=== PATIENT | male | born 1945 | race Caucasian/White ===

== ENCOUNTER → 2018-03-27 07:46 | Outpatient (CLI) | payer MEDICARE, OTHER, SELFPAY ==
[2018-03-27 09:56] LABS: Alanine Aminotransferase 42 IU/L (21-72); Albumin 4.2 g/dL (3.5-5.0); Albumin Globulin Ratio 1.4 (1.0-2.8); Alkaline Phosphatase 44 U/L (38-126); Aspartate Aminotransferase 30 IU/L (17-59); BUN Creatinine Ratio 17.1 (6-22); Bilirubin Total 0.5 mg/dL (0.2-1.3); Blood Urea Nitrogen 12 mg/dL (9-20); Carbon Dioxide 26 mmol/L (22-32); Chloride 99 mmol/L (98-107); Cholesterol 99 mg/dL (140-199); Estimated Glomerular Filt Rate > 60.0 mL/min (>60); Globulin 3.1 g/dL (1.7-4.1); Glucose 99 mg/dL (80-110); HDL Cholesterol 32 mg/dL (40-60); HEMOLYSIS < 15 (0-50); LDL Cholesterol Calculated 53 mg/dL (<100); Potassium 4.1 mmol/L (3.4-5.1); Sodium 137 mmol/L (137-145); Total Protein 7.3 g/dL (6.3-8.2); Triglycerides 72 mg/dL (35-150)
== END ==
PROVIDERS: PCP Internal Medicine; Visit Provider Physician Assistant Medical
DX: E78.2 Mixed hyperlipidemia (principal); I10 Essential (primary) hypertension
CPT/HCPCS: 36415; 80053; 80061

== ENCOUNTER → 2018-04-03 15:59 | Outpatient (CLI) | payer MEDICARE, OTHER, SELFPAY ==
--- NOTE | 2018-04-03 | DI.RAD.S_ITS ---
PROCEDURE: XR CERVICAL SPINE 4V OR 5V INDICATIONS: 72-year-old male with cervicalgia. TECHNIQUE: 5 views of the cervical spine were acquired. COMPARISON: None. FINDINGS: Bones: No fractures or dislocations to the T1 level. Multilevel mid and lower cervical spine disc degeneration is again noted, with mild loss of normal cervical spine lordosis. No suspicious bony lesions. There is decreased range of motion between flexion and extension, with preserved bony alignment. Soft tissues: Prevertebral soft tissues are normal in thickness. There is bilateral carotid bifurcation atherosclerosis. IMPRESSION: 1. No significant interval change in multilevel mid and lower cervical spine disc degeneration since 2013. 2. Decreased range of motion between flexion and extension. Dictated by: Dawson Mccracken M.D. on 04/03/2018 at 16:34 Approved by: Dawson Mccracken M.D. on 04/03/2018 at 16:36
== END ==
PROVIDERS: Family Provider Internal Medicine; PCP Internal Medicine; Visit Provider Internal Medicine
DX: M50.30 Other cervical disc degeneration, unspecified cervical region (principal)
CPT/HCPCS: 72050

== ENCOUNTER → 2018-09-04 15:33 | Outpatient (CLI) | payer MEDICARE, OTHER, SELFPAY ==
--- NOTE | 2018-09-04 | DI.RAD.S_ITS ---
PROCEDURE: XR WRIST LT MIN 3V INDICATIONS: PAIN IN LEFT WRIST TECHNIQUE: 5 views of the wrist were acquired. COMPARISON: None. FINDINGS: Bones: No fractures or dislocations. No suspicious bony lesions. First CMC and triscaphe mild degeneration. There is also severe second MTP joint degeneration. Marginal lucencies present at the third MCP joint, DIP joint of the little finger . Chondrocalcinosis projects in the ulnocarpal compartment. First MCP joint degeneration also present with marginal lucencies Soft tissues: No suspicious soft tissue calcifications. IMPRESSION: Diffuse left hand joint degeneration, most pronounced at the second MCP joint. Scattered, small marginal lucencies as above in particular at the first and third MCP joint raise the possibility of small age indeterminate erosions, although please correlate clinically. Left wrist chondrocalcinosis. Dictated by: Michael Aguila M.D. on 09/04/2018 at 16:54 Approved by: Michael Aguila M.D. on 09/04/2018 at 16:58
== END ==
PROVIDERS: Family Provider Internal Medicine; PCP Internal Medicine; Visit Provider Physician Assistant
DX: M25.532 Pain in left wrist (principal); M19.042 Primary osteoarthritis, left hand; M11.232 Other chondrocalcinosis, left wrist
CPT/HCPCS: 73110

== ENCOUNTER → 2018-09-06 16:05 | Outpatient (CLI) | payer MEDICARE, OTHER, SELFPAY ==
[2018-09-06 16:52] LABS: Erythrocyte Sedimentation Rate 28 MM/HR (0-15)
[2018-09-06 17:00] LABS: C-Reactive Protein Quant 1.6 mg/dL (<1.0); Rheumatoid Factor < 8.6 IU/mL (<12.0)
== END ==
PROVIDERS: PCP Internal Medicine; Visit Provider Internal Medicine
DX: M06.9 Rheumatoid arthritis, unspecified (principal); M13.0 Polyarthritis, unspecified; M25.532 Pain in left wrist
CPT/HCPCS: 36415; 85651; 86140; 86430

== ENCOUNTER 2019-04-03 08:09 | Day surgery (SDC) | payer MEDICARE, OTHER, SELFPAY ==
--- NOTE | 2019-03-13 08:14 | PM.HP.1 ---
History of Present Illness Date Patient Seen: 03/13/19 Chief complaint: [id number] Narrative: 73-year-old male with a history of colon polyps on colonoscopy performed 03/12/2014 at [facility] who is here for surveillance. He currently has no active medical issues such as chest pain or shortness of breath Patient History Family & Social History Social History: household members spouse lives independently Yes Tobacco & Substance use: alcohol intake former Meds Home Medications Medication Instructions Recorded Confirmed Type ASPIRIN (#ASPIRIN) 81 mg PO Q DAY #0 04/26/11 02/15/19 History Terazosin HCl (HYTRIN) 2 mg PO HS #0 04/26/11 02/15/19 History VITAMIN D (Vitamin D3) 1,000 unit PO QDAY #0 04/26/11 02/15/19 History metoprolol tartrate 50 mg PO BID #0 04/26/11 02/15/19 History benzonatate [Tessalon Perles] 100 mg PO TID #21 cap 10/27/16 02/15/19 Rx omeprazole magnesium 10 mg oral 10 mg PO DAILY 02/15/19 02/15/19 History suspension,delayed release rosuvastatin 20 mg tablet 20 mg PO DAILY 02/15/19 02/15/19 History tadalafil 5 mg tablet 5 mg PO DAILY PRN 02/15/19 02/15/19 History Resmed Aircurve BIPAP #1 ea 02/18/19 02/18/19 History Allergies Allergy/AdvReac Type Severity Reaction Status Date / Time lisinopril [LISINOPRIL] Allergy Unknown Unverified 01/17/18 12:16 Review of Systems Review of Systems All systems reviewed & are unremarkable except as noted in HPI and below Exam Narrative Exam Narrative: General: Patient is overweight, not in apparent distress Cardiovascular: Regular rate and rhythm, no murmurs, rubs, or gallops; no evidence of edema; no palpable abdominal aortic aneurysm Gastrointestinal: Normoactive bowel sounds, soft, nontender, nondistended, no rebound tenderness, no hepatosplenomegaly, no evidence of hernia Assessment & Plan Assessment & Plan narrative: 73-year-old male who is here for colon polyp surveillance Regarding the procedure(s), the risks and potential complications, benefits, and alternatives (including not doing the procedure) were discussed with the patient. The risks include but are not limited to bleeding, splenic injury, infection, perforation which may require surgical intervention, missed lesions, and adverse reactions to sedative medicines. After a question and answer period, the patient agreed to proceed with the procedure(s) and gives informed consent.
[2019-04-03 08:30] VITALS: BP 120/69; PULSE 67; RESP 16; TEMP 36.6; O2SAT 95; BMI 29.6
[2019-04-03] MEDS: SODIUM CHLORIDE 0.9% 1,000 ML 70 ML IV (08:41)
[2019-04-03] MEDS: MIDAZOLAM 5 MG/5 ML VIAL IV (10:11)
[2019-04-03] MEDS: fentaNYL 250 MCG/5 ML INJ IV (10:12)
--- NOTE | 2019-04-03 10:21 | PM.PREOP ---
Pre-operative Note Interval Note History & Physical reviewed/Exam performed by Physician: Yes Changes to H&P: No ASA Class (for procedural sedation): II
--- NOTE | 2019-04-03 10:23 | PM.OP.ENDO ---
Operative Date/Time/Diagnoses Date of procedure: 04/03/19 Procedure & Clinicians Study performed: Colonoscopy Moderate conscious sedation was administered by the endoscopy nurse and supervised by the endoscopist. The following parameters were monitored: Oxygen saturation, heart rate, blood pressure, and response to care. Sedation: 2 mg midazolam, 100 mcg fentanyl Indications: Colon cancer screening. Personal history of colon polyps. Last colonoscopy 2013 Procedure Notes Procedure in detail: Prior to the procedure, history and physical was performed, and patient medications and allergies were reviewed. Preprocedure nursing history and assessment was reviewed. Patient identification and proposed procedure were verified by the physician and nurse in the procedure room. The physical status of the patient was reassessed after the procedure. After informed consent was obtained including risks, benefits, and alternatives, the scope was passed under direct vision. Throughout the procedure, the patient's blood pressure, pulse, and oxygen saturations were monitored continuously. The colonoscope was introduced through the anus and advanced to the cecum as identified by the appendiceal orifice and ileocecal valve. The patient tolerated the procedure well. Bowel prep was deemed adequate to detect polyps greater than 5 mm. Perianal and digital rectal examinations were unremarkable. Grade 1 internal hemorrhoids noted during retroflexion in the rectum. Multiple medium mouth diverticula noted in the sigmoid colon Impression: Sigmoid colon diverticulosis Internal hemorrhoids No specimens collected Sedation minutes: 20 Complications: other (EBL none. No complications) Plan for aftercare: Repeat colonoscopy in 5 years for colon cancer screening Resume home medication High fiber diet Discharge home with escort
[2019-04-03 10:25] VITALS: BP 118/60; PULSE 11; RESP 93; TEMP 36.9
[2019-04-03 10:28] VITALS: BP 120/69; PULSE 56; RESP 14; O2SAT 95
[2019-04-03 10:33] VITALS: BP 124/63; PULSE 56; RESP 18; O2SAT 94
[2019-04-03 10:44] VITALS: BP 130/73; PULSE 54; RESP 16; TEMP 36.7; O2SAT 95
== END 2019-04-03 11:00 | disposition home or self-care (01) ==
PROVIDERS: PCP Internal Medicine; Visit Provider Internal Medicine
PROC: 0DJD8ZZ Inspection of Lower Intestinal Tract, Via Natural or Artificial Opening Endoscopic (ICD-10-PCS; CPT 45378; principal; 2019-04-03 09:30)
DX: Z86.010 Personal history of colon polyps (principal); K57.30 Diverticulosis of large intestine without perforation or abscess without bleeding; K64.8 Other hemorrhoids
CPT/HCPCS: G0105; J2250; J3010

== ENCOUNTER → 2019-08-01 09:13 | Outpatient (CLI) | payer MEDICARE, OTHER, SELFPAY ==
[2019-08-01 11:10] LABS: Alanine Aminotransferase 28 IU/L (21-72); Albumin 4.5 g/dL (3.5-5.0); Albumin Globulin Ratio 1.7 (1.0-2.8); Alkaline Phosphatase 45 U/L (38-126); Aspartate Aminotransferase 25 IU/L (17-59); BUN Creatinine Ratio 17.1 (6-22); Bilirubin Total 0.9 mg/dL (0.2-1.3); Blood Urea Nitrogen 12 mg/dL (9-20); Calcium 9.2 mg/dL (8.4-10.2); Carbon Dioxide 26 mmol/L (22-32); Chloride 98 mmol/L (98-107); Estimated Glomerular Filt Rate > 60.0 mL/min (>60); Globulin 2.7 g/dL (1.7-4.1); Glucose 100 mg/dL (80-110); HEMOLYSIS < 15 (0-50); Potassium 4.1 mmol/L (3.4-5.1); Sodium 137 mmol/L (137-145); Total Protein 7.2 g/dL (6.3-8.2)
[2019-08-05 11:59] LABS: Lipoprofile NMR SEE SEPERATE REPORT
== END ==
PROVIDERS: Family Provider Internal Medicine; PCP Internal Medicine; Visit Provider Specialist
DX: E78.2 Mixed hyperlipidemia (principal); I10 Essential (primary) hypertension
CPT/HCPCS: 36415; 80053; 83704

== ENCOUNTER → 2019-08-05 13:16 | Outpatient (CLI) | payer MEDICARE, OTHER, SELFPAY ==
--- NOTE | 2019-08-05 | DI.ECHO.S_ITS ---
[facility] +---------+ : : [address] : [place] : : : : [id number] : : : : Phone: [phone]+ Echocardiogram Report + + :Name: KWASI ESCAMILLA Study Date: 08/05/2019 Height: 72 in : :[facility] Weight: 214 lb : : Gender: Male BSA: 2.2 m2 : :: 1945 Age: 74 yrs BP: 134/76 mmHg: :Reason For Study: Aortic, Ascending Aneurysm : :Ordering Physician: Mateo : :Gavin Performed By: Anabel Menendez : :Referring: Dr. John Niño : + + Interpretation Summary The left ventricle is normal in size, wall thickness, and systolic function without any focal wall motion abnormalities with the ejection fraction visually estimated to be 60-65%. Diastolic parameters suggest probable normal left ventricular diastolic function and normal filling pressures. There has been no significant change since the previous study. The right ventricle is mild to moderately dilated and systolic function is mildly reduced but appears unchanged compared to the previous study. The right ventricular systolic pressure is estimated to be at least 25 mmHg based on an estimated right atrial pressure of 3 mm Hg, and is unchanged compared to the previous study. The left atrium is mildly dilated but is smaller compared to the previous study. The right atrium is borderline dilated and grossly unchanged. The aortic valve is mildly calcified with mild aortic regurgitation that is unchanged compared to the previous study. There is no other significant valvular heart disease. The aortic root is moderately dilated and the ascending aorta is moderate- severely enlarged, measuring 4.2 cm and 5.0 cm, respectively, but both are unchanged compared to the previous study. The aortic arch is mild-moderately enlarged at 3.7 cm but measures slightly smaller compared to the previous study when it was 4.0 cm. Procedure: A two-dimensional transthoracic echocardiogram with color flow and Doppler was performed. The study quality was technically adequate. Comparison is made with the echocardiogram of 05-23-17. The patient was in normal sinus rhythm during the exam. Left Ventricle: The left ventricle is normal in size, wall thickness, and systolic function without any focal wall motion abnormalities. The ejection fraction is estimated to be 60-65%. Diastolic parameters suggest probable normal left ventricular diastolic function and normal filling pressures. There has been no significant change since the previous study. Right Ventricle: The right ventricle is mild to moderately dilated. Right ventricular systolic function is mildly reduced. This is unchanged compared to the previous study. Atria: The left atrium is mildly dilated. This is smaller compared to the previous study. The right atrium is borderline dilated. This is unchanged compared to the previous study. The interatrial septum is intact with no evidence for an atrial septal defect. Mitral Valve: The mitral valve leaflets appear mildly thickened, but open well. There is systolic anterior motion of the chordal apparatus. There is trace mitral regurgitation. This is unchanged compared to the previous study. Aortic Valve: The aortic valve is trileaflet. The aortic valve is mildly calcified. The aortic valve opens well. There is mild aortic regurgitation. This is unchanged compared to the previous study. Tricuspid Valve: The tricuspid valve is normal in structure and function. There is trace tricuspid regurgitation. The right ventricular systolic pressure is estimated to be at least 25 mmHg based on an estimated right atrial pressure of 3 mm Hg. This is unchanged compared to the previous study. Pulmonic Valve: The pulmonic valve is not well seen, but is grossly normal. There is no pulmonic valvular regurgitation. There is no other significant valvular heart disease. Great Vessels: The aortic root is moderately dilated. This is unchanged compared to the previous study. The ascending aorta is moderate-severely enlarged. This is unchanged compared to the previous study. The aortic arch is mild-moderately enlarged. The aortic arch measures slightly smaller compared to the previous study. The IVC is of normal diameter and collapses greater than 50% with a sniff. This suggests a low right atrial pressure of 3 mm Hg. Pericardium/ Pleura There is no pericardial effusion. There is no pleural effusion. MMode/2D Measurements & Calculations LVIDd: 5.2 cm Ao root diam: 4.2 cm LVIDs: 3.0 cm Aortic Jxn: 3.9 cm FS: 42.6 % asc Aorta Diam: 5.0 cm EPSS: 0.36 cm Ao Arch Diam (Prox Trans): 3.7 cm IVSd: 1.1 cm LVPWd: 0.82 cm LV monsivais. diameter/BSA (cm/m^2): 2.4 LV sys. diameter/BSA (cm/m^2): 1.4 LA dimension: 3.2 cm RA long axis: 5.4 cm LA A2 area: 26.6 cm2 RA area: 21.2 cm2 LA A4 area: 23.0 cm2 RA vol: 70.7 ml LA length (vol): 5.9 cm RA : 32.3 ml/m2 LA vol: 87.5 ml IVC diam: 1.9 cm LA vol index: 39.9 ml/m2 RVDd major: 8.1 cm RVD1 (basal): 5.5 cm RVD2 (mid): 5.3 cm Doppler Measurements & Calculations Ao V2 max: 149.4 cm/sec MV E max matthew: 66.2 cm/sec Ao V2 mean: 95.6 cm/sec MV A max matthew: 58.3 cm/sec Ao max P.9 mmHg MV E/A: 1.1 Ao mean P.2 mmHg Med Peak E' Matthew: 6.6 cm/sec Ao V2 VTI: 31.8 cm E/E' med: 10.0 Lat Peak E' Matthew: 8.2 cm/sec E/E' lat: 8.1 E/e' average: 9.0 MV dec time: 0.40 sec MV P1/2t: 116.8 msec TR max matthew: 236.3 cm/sec MV P1/2t max matthew: 65.8 cm/sec TR max P.3 mmHg MVA(P1/2t): 1.9 cm2 PA V2 max: 86.4 cm/sec PA V2 mean: 67.5 cm/sec PA mean P.9 mmHg PA Accel Time: 0.15 sec Reading Physician:MULUGETA
== END ==
PROVIDERS: PCP Internal Medicine; Visit Provider Specialist
DX: I71.2 Thoracic aortic aneurysm, without rupture (principal); I35.1 Nonrheumatic aortic (valve) insufficiency
CPT/HCPCS: 93306

== ENCOUNTER → 2019-09-11 10:32 | Outpatient (CLI) | payer MEDICARE, OTHER, SELFPAY ==
[2019-09-11 11:10] LABS: Alanine Aminotransferase 32 IU/L (<50); Albumin 4.6 g/dL (3.5-5.0); Albumin Globulin Ratio 1.7 (1.0-2.8); Alkaline Phosphatase 52 U/L (38-126); Aspartate Aminotransferase 28 IU/L (17-59); BUN Creatinine Ratio 24.3 (6-22); Bilirubin Total 0.9 mg/dL (0.2-1.3); Blood Urea Nitrogen 17 mg/dL (9-20); Calcium 9.5 mg/dL (8.4-10.2); Carbon Dioxide 26 mmol/L (22-32); Chloride 98 mmol/L (98-107); Estimated Glomerular Filt Rate > 60.0 mL/min (>60); Globulin 2.7 g/dL (1.7-4.1); Glucose 103 mg/dL (80-110); HEMOLYSIS < 15 (0-50); Lipase 67 U/L (23-300); Potassium 4.2 mmol/L (3.4-5.1); Sodium 133 mmol/L (137-145); Total Protein 7.3 g/dL (6.3-8.2)
[2019-09-11 11:21] LABS: Troponin I < 0.012 ng/mL (0.01-0.034)
== END ==
PROVIDERS: Family Provider Internal Medicine; PCP Internal Medicine; Visit Provider Physician Assistant
DX: R11.0 Nausea (principal)
CPT/HCPCS: 36415; 80053; 83690; 84484

== ENCOUNTER → 2020-07-20 08:38 | Outpatient (CLI) | payer MEDICARE, OTHER, SELFPAY ==
[2020-07-20 09:51] LABS: Alanine Aminotransferase 29 IU/L (<50); Albumin 4.1 g/dL (3.5-5.0); Albumin Globulin Ratio 1.6 (1.0-2.8); Alkaline Phosphatase 55 U/L (38-126); Aspartate Aminotransferase 32 IU/L (17-59); BUN Creatinine Ratio 17.5 (6-22); Bilirubin Total 0.8 mg/dL (0.2-1.3); Blood Urea Nitrogen 14 mg/dL (9-20); Carbon Dioxide 28 mmol/L (22-32); Chloride 99 mmol/L (98-107); Estimated Glomerular Filt Rate > 60.0 mL/min (>60); Globulin 2.5 g/dL (1.7-4.1); Glucose 116 mg/dL (80-110); HEMOLYSIS < 15 (0-50); Potassium 4.2 mmol/L (3.4-5.1); Sodium 134 mmol/L (137-145); Total Protein 6.6 g/dL (6.3-8.2)
[2020-08-07 14:32] LABS: LDL Particle 698; LDL-Cholsterol 50
[2020-08-07 14:33] LABS: HDL-Cholesterol 27; Triglycerides 144
[2020-08-07 14:34] LABS: Cholesterol, Total 102; HDL-Particle (Total) 23.9
[2020-08-07 14:35] LABS: Small LDL- Particle 539
[2020-08-07 14:37] LABS: LDL Size 19.6
== END ==
PROVIDERS: Family Provider Internal Medicine; PCP Internal Medicine; Referring Provider Specialist; Visit Provider Specialist
DX: E78.2 Mixed hyperlipidemia (principal)
CPT/HCPCS: 36415; 80053; 80061; 83704

== ENCOUNTER → 2020-07-24 15:26 | Outpatient (CLI) | payer MEDICARE, OTHER, SELFPAY ==
--- NOTE | 2020-07-24 | DI.CT.S_ITS ---
PROCEDURE: CT CHEST W CON INDICATIONS: Disorder of arteries and arterioles, unspecified TECHNIQUE: After the administration of intravenous contrast, 5 mm thick sections acquired from the pulmonary apices to the posterior costophrenic angles. 1 mm axial lung, 5 mm thick coronal and sagittal reformats and 7 mm axial MIP were acquired. For radiation dose reduction, the following was used: automated exposure control, adjustment of mA and/or kV according to patient size. COMPARISON: [facility], CT, THORAX WITH CONTRAST, 01/26/2016, 11:07. [facility], CR, XR CHEST 2 VIEWS, 09/24/2018, 11:20. FINDINGS: Image quality: Excellent. Lungs and pleura: No acute air space opacities. Minimal atelectasis in the lingula. Punctate calcified granuloma in the right middle lobe. No pleural effusions or pneumothorax. Central and peripheral airways are patent and normal in caliber. Mediastinum: Heart size is normal. Three-vessel coronary artery calcifications. No pericardial effusion. No mediastinal or hilar adenopathy by size criteria. Ascending aorta measures approximately 3.6 cm, previously 3.8 cm on 01/26/2016. Moderate calcified atherosclerotic plaque in the aortic arch. Esophagus is normal in caliber. Small hiatal hernia. Bones and chest wall: No suspicious bony lesions. No vertebral body compression fractures. No axillary or supraclavicular adenopathy by size criteria. Thyroid gland is unremarkable. Abdomen: Large simple cyst in the right kidney measuring 7.8 cm partially visualized. Well-circumscribed hypodensities in the liver are unchanged in consistent with benign cysts. Visualized upper abdominal solid organs appear normal. Upper abdominal bowel loops are normal in caliber. IMPRESSION: 1. Ascending aorta measures approximately 3.6 cm and is similar to 2016. Moderate calcified atherosclerotic plaque within the aorta. 2. Three-vessel coronary artery calcifications. 3. No significant acute airspace opacity or pulmonary nodules. 4. Small hiatal hernia. Dictated by: Bernardo Clark M.D. on 07/24/2020 at 16:19 Approved by: Bernardo Clark M.D. on 07/24/2020 at 16:32
== END ==
PROVIDERS: Family Provider Internal Medicine; PCP Internal Medicine; Referring Provider Specialist; Visit Provider Physician Assistant Medical
DX: I77.9 Disorder of arteries and arterioles, unspecified (principal); I70.0 Atherosclerosis of aorta; I25.10 Atherosclerotic heart disease of native coronary artery without angina pectoris; K44.9 Diaphragmatic hernia without obstruction or gangrene
CPT/HCPCS: 71260

== ENCOUNTER → 2021-03-17 07:55 | Outpatient (CLI) | payer MEDICARE, OTHER, SELFPAY ==
[2021-03-17 08:51] LABS: Alanine Aminotransferase 24 IU/L (<50); Albumin 4.1 g/dL (3.5-5.0); Albumin Globulin Ratio 1.6 (1.0-2.8); Alkaline Phosphatase 52 U/L (38-126); Aspartate Aminotransferase 26 IU/L (17-59); BUN Creatinine Ratio 14.1 (6-22); Bilirubin Total 0.7 mg/dL (0.2-1.3); Blood Urea Nitrogen 10 mg/dL (9-20); Calcium 9.3 mg/dL (8.4-10.2); Carbon Dioxide 25 mmol/L (22-32); Chloride 98 mmol/L (98-107); Estimated Glomerular Filt Rate > 60.0 mL/min (>60); Globulin 2.6 g/dL (1.7-4.1); Glucose 106 mg/dL (80-110); HEMOLYSIS < 15 (0-50); Potassium 4.1 mmol/L (3.4-5.1); Sodium 132 mmol/L (137-145); Total Protein 6.7 g/dL (6.3-8.2)
[2021-03-17 15:09] LABS: Add Manual Diff / Slide Review NO; Basophils Absolute Auto 0 /uL (0-100); Basophils Percent Auto 0.4 % (0-2); Eosinophils Absolute Auto 100 /uL (0-450); Eosinophils Percent Auto 1.5 % (2-4); Hematocrit 37.9 % (41-53); Hemoglobin 13.3 g/dL (13.5-17.5); Lymphocytes Absolute Auto 1400 /uL (1100-4500); Lymphocytes Percent Auto 20.2 % (25-40); Mean Corpuscular Hemoglobin 32.4 PG (26-34); Mean Corpuscular Volume 92.6 fL (80-100); Monocytes Absolute Auto 600 /uL (0-900); Monocytes Percent Auto 8.2 % (3-14); Neutrophils Absolute Auto 4900 /uL (1500-7000); Neutrophils Percent Auto 69.7 % (50-75); Platelet Count 195 X10^3/uL (150-400); Red Blood Cell Count 4.09 X10^6/uL (4.5-5.9); Red Cell Distribution Width 13.3 % (11.6-14.8)
[2021-03-17 15:31] LABS: Hemoglobin A1C% w Est Avg Glu 5.5 % (4.0-6.0)
[2021-03-17 15:56] LABS: Prostate Specific Antigen 14.9 ng/mL (0.10-4.00)
[2021-03-17 15:57] LABS: TSH w/ Reflex to FT4 2.36 uIU/mL (0.47-4.68)
[2021-03-19 08:11] LABS: Cholesterol, Total 104 mg/dL (100-199); HDL-Cholesterol 34 mg/dL (>39); HDL-Particle (Total) 25.8 umol/L (>=30.5); LDL Particle 739 nmol/L (<1000); LDL Size 19.9 nm (>20.5); LDL-Cholsterol 51 mg/dL (0-99); LP-IR Score 72 (<=45); Small LDL- Particle 490 nmol/L (<=527); Triglycerides 97 mg/dL (0-149)
== END ==
PROVIDERS: Family Provider Internal Medicine; PCP Internal Medicine; Referring Provider Physician Assistant Medical; Visit Provider Physician Assistant Medical
DX: E78.00 Pure hypercholesterolemia, unspecified (principal); I25.10 Atherosclerotic heart disease of native coronary artery without angina pectoris; E78.2 Mixed hyperlipidemia; R73.01 Impaired fasting glucose; N40.0 Benign prostatic hyperplasia without lower urinary tract symptoms
CPT/HCPCS: 36415; 80053; 80061; 83036; 83704; 84153; 84443; 85025

== ENCOUNTER → 2021-04-06 10:52 | Outpatient (CLI) | payer MEDICARE, OTHER, SELFPAY ==
[2021-04-07 07:28] LABS: PSA Free % 8.9 % (.); PSA, Total 13.3 ng/mL (0.0-4.0)
== END ==
PROVIDERS: Family Provider Internal Medicine; PCP Internal Medicine; Referring Provider Internal Medicine; Visit Provider Internal Medicine
DX: Z12.5 Encounter for screening for malignant neoplasm of prostate (principal); R97.20 Elevated prostate specific antigen [PSA]
CPT/HCPCS: 36415; 84153; 84154

== ENCOUNTER → 2021-08-03 10:11 | Outpatient (CLI) | payer MEDICARE, OTHER, SELFPAY ==
[2021-08-03 12:59] LABS: Alanine Aminotransferase 20 IU/L (<50); Albumin 4.3 g/dL (3.5-5.0); Albumin Globulin Ratio 1.9 (1.0-2.8); Alkaline Phosphatase 47 U/L (38-126); Aspartate Aminotransferase 22 IU/L (17-59); BUN Creatinine Ratio 16.7 (6-22); Bilirubin Total 0.6 mg/dL (0.2-1.3); Blood Urea Nitrogen 12 mg/dL (9-20); Calcium 9.1 mg/dL (8.4-10.2); Carbon Dioxide 25 mmol/L (22-32); Chloride 99 mmol/L (98-107); Estimated Glomerular Filt Rate > 60.0 mL/min (>60); Globulin 2.3 g/dL (1.7-4.1); Glucose 96 mg/dL (80-110); HEMOLYSIS < 15 (0-50); Potassium 4.1 mmol/L (3.4-5.1); Sodium 135 mmol/L (137-145); Total Protein 6.6 g/dL (6.3-8.2)
== END ==
PROVIDERS: Family Provider Internal Medicine; PCP Internal Medicine; Referring Provider Physician Assistant Medical; Visit Provider Specialist
DX: I10 Essential (primary) hypertension (principal)
CPT/HCPCS: 36415; 80053

== ENCOUNTER → 2021-08-06 13:41 | Outpatient (CLI) | payer MEDICARE, OTHER, SELFPAY ==
--- NOTE | 2021-08-06 13:43 | DI.ECHO.S_ITS ---
[facility] +---------+ : : [address] [place] : : : : [phone] : : : : Phone: [phone]+ Echocardiogram Report + + :Name: KWASI ESCAMILLA Study Date: 08/06/2021 Height: 72 in : :[facility] ReadingLocation: Weight: 220 lb : : Gender: Male BSA: 2.2 m2 : :: 1945 Age: 76 yrs BP: 140/80 mmHg: :Reason For Study: Thoracic aorta aneurysm, without rupture : : Performed By: JASBIR CULP : :Referring: JOHANA JARVIS : + + Interpretation Summary Left ventricular systolic function appears normal and unchanged from the previous study with an estimated ejection fraction of 55 to 60% without any focal wall motion abnormality. Left ventricular volumes are at the upper limits of normal at 126 mL. Wall thickness is at the upper limits of normal with mild septal prominence but similar to the previous study. Diastolic function is challenging to assess because of contradictory data although a reversed E/A ratio would suggest impaired relaxation, new from the previous study, and the E/E' ratios are significantly higher, suggesting possible increased filling pressure although left atrial size is markedly smaller. The right ventricle is mild to moderately enlarged with probable preserved right ventricular systolic function and grossly appears unchanged from the previous study. Right ventricular systolic pressure cannot be estimated but CVP is likely around 3 mmHg. The left atrium is normal in size while the right atrium is moderately enlarged. Left atrial size is significantly smaller while right atrial size is mildly larger compared to the previous study. There is aortic valve sclerosis without stenosis and mild aortic insufficiency that remains unchanged from the previous study. There is no other significant valvular abnormality. The aortic root measures normal at 3.5 cm, smaller compared to 4.2 cm on the previous study, although is less well imaged. The ascending aorta is moderate to severely enlarged at 4.9 cm, unchanged from the previous 5.0 cm. The aortic arch is also unchanged at 3.6 cm compared to 3.7 cm previously. Procedure: A two-dimensional transthoracic echocardiogram with color flow and Doppler was performed. The study quality was technically adequate. Comparison is made with the echocardiogram of 08/05/2019. The patient was in normal sinus rhythm during the exam. Left Ventricle: The left ventricle is normal in size. Left ventricular wall thickness is at the upper limits of normal. There is mild proximal septal thickening noted. Left ventricular systolic function appears normal without focal wall motion abnormalities. The ejection fraction is estimated to be 55- 60%. Diastolic function could not be accurately assessed due to contradictory data. Diastolic parameters suggest a relaxation abnormality of the left ventricle, consistent with probable normal filling pressures. Right Ventricle: The right ventricle is mild to moderately dilated. The right ventricular systolic function is normal. This is unchanged compared to the previous study. Atria: The left atrial size is normal. The left atrium has significantly decreased in size since the prior echo exam. The right atrium is moderately dilated. The right atrium has mildly increased in size since the prior echo exam. There is no Doppler evidence for an interatrial shunt. Mitral Valve: The mitral valve leaflets appear normal. There is no evidence of stenosis, fluttering, or prolapse. There is trace mitral regurgitation. Aortic Valve: The aortic valve is trileaflet. The aortic valve is mildly calcified. There is mildly reduced leaflet mobility. There is no hemodynamically significant valvular aortic stenosis. There is mild aortic regurgitation. This is unchanged compared to the previous study. Tricuspid Valve: The tricuspid valve is normal. There is trace tricuspid regurgitation. Pulmonary artery pressures cannot be estimated because of the lack of a measurable TR jet velocity but the IVC suggests a CVP of around 3 mmHg. Pulmonic Valve: The pulmonic valve leaflets are thin and pliable; valve motion is normal. There is a trace or physiologic amount of pulmonic regurgitation. Great Vessels: The aortic root is normal size. The ascending aorta is moderate-severely enlarged. The aortic arch is mildly enlarged. The IVC is of normal diameter and collapses greater than 50% with a sniff. This suggests a low right atrial pressure of 3 mm Hg. Pericardium/ Pleura There is no pericardial effusion. There is an anterior echo-free space consistent with a fat pad. There is no pleural effusion. MMode/2D Measurements & Calculations LVIDd: 4.6 cm LVOT diam: 2.3 cm LVIDs: 2.6 cm Ao root diam: 3.5 cm FS: 43.1 % asc Aorta Diam: 4.9 cm IVSd: 1.5 cm Ao Arch Diam (Prox Trans): 3.6 cm LVPWd: 0.98 cm LV monsivais. diameter/BSA (cm/m^2): 2.1 LV sys. diameter/BSA (cm/m^2): 1.2 LA A2 area: 21.7 cm2 RA long axis: 5.0 cm LA A4 area: 9.7 cm2 RA area: 23.1 cm2 LA length (vol): 5.1 cm RA vol: 90.2 ml LA vol: 35.3 ml RA : 40.6 ml/m2 LA vol index: 15.9 ml/m2 RVD1 (basal): 4.7 cm TAPSE: 2.3 cm Doppler Measurements & Calculations Ao V2 max: 120.8 cm/sec LVOT Max Matthew: 101.2 cm/sec Ao V2 mean: 89.0 cm/sec LV V1 max P.1 mmHg Ao max P.8 mmHg LV V1 VTI: 23.7 cm Ao mean P.5 mmHg APPLE(I,D): 4.0 cm2 Ao V2 VTI: 25.7 cm APPLE(V,D): 3.6 cm2 sev ratio: 0.92 APPLE indexed to BSA (cm^2/m^2): 1.8 MV E max matthew: 56.6 cm/sec PA V2 max: 86.4 cm/sec MV A max matthew: 71.0 cm/sec PA V2 mean: 67.2 cm/sec MV E/A: 0.80 PA mean P.9 mmHg Med Peak E' Matthew: 4.5 cm/sec PA pr(Accel): 19.1 mmHg E/E' med: 12.5 Lat Peak E' Matthew: 1.8 cm/sec E/E' lat: 31.6 E/e' average: 22.0 MV dec time: 0.27 sec SV(LVOT): 102.6 ml Reading Physician:05:45 PM
== END ==
PROVIDERS: Family Provider Internal Medicine; PCP Internal Medicine; Referring Provider Specialist; Visit Provider Physician Assistant Medical
DX: I71.2 Thoracic aortic aneurysm, without rupture (principal); I35.1 Nonrheumatic aortic (valve) insufficiency
CPT/HCPCS: 93306

== ENCOUNTER → 2021-09-25 13:30 | Outpatient (ROUT) | payer MEDICARE, OTHER, SELFPAY ==
[2021-09-25 13:49] LABS: COVID19 -Nasal RAPID Negative (Negative)
== END ==
PROVIDERS: Family Provider Internal Medicine; PCP Internal Medicine; Visit Provider Physician Assistant
DX: R05.9 Cough, unspecified (principal); R09.81 Nasal congestion
CPT/HCPCS: 87635

== ENCOUNTER → 2021-11-01 12:00 | Outpatient (CLI) | payer MEDICARE, OTHER, SELFPAY ==
[2021-11-01 13:16] LABS: COVID19 -Nasal RAPID Negative (Negative)
== END ==
PROVIDERS: Family Provider Internal Medicine; PCP Internal Medicine; Visit Provider Physician Assistant
DX: Z20.822 Contact with and (suspected) exposure to COVID-19 (principal)
CPT/HCPCS: 87635

== ENCOUNTER → 2021-11-03 10:50 | Outpatient (CLI) | payer MEDICARE, OTHER, SELFPAY ==
--- NOTE | 2021-11-03 | DI.US.S_ITS ---
PROCEDURE: US SOFT TISSUE HEAD AND NECK INDICATIONS: SUBMANDIBULAR LYMPHADENOPATHY TECHNIQUE: Real-time scanning was performed of the neck region of interest, with image documentation. Color Doppler was also utilized. COMPARISON: None. FINDINGS: Scanning is performed at the area of clinical concern. No enlarged lymph nodes are seen. No masses are seen. There is a normal right submandibular gland seen at the area of the palpable lump. IMPRESSION: The area palpable lump corresponds to a normal right submandibular gland. No enlarged lymph nodes or other masses are seen on these ultrasound images. If there remains strong clinical concern for a neck mass, please consider a follow-up dedicated neck CT with IV contrast for further evaluation. Dictated by: Atilio Sandoval M.D. on 11/03/2021 at 10:15 Approved by: Atilio Sandoval M.D. on 11/03/2021 at 10:16
== END ==
PROVIDERS: Family Provider Internal Medicine; PCP Internal Medicine; Referring Provider Physician Assistant; Visit Provider Physician Assistant
DX: R59.0 Localized enlarged lymph nodes (principal)
CPT/HCPCS: 76536

== ENCOUNTER → 2021-11-26 15:51 | Outpatient (CLI) | payer MEDICARE, OTHER, SELFPAY | PROVIDERS: Family Provider Internal Medicine; PCP Internal Medicine; Referring Provider Urology; Visit Provider Urology | DX: C61 Malignant neoplasm of prostate (principal) | CPT/HCPCS: 36415; 84153 ==

== ENCOUNTER → 2021-12-23 14:31 | Outpatient (CLI) | payer MEDICARE, OTHER, SELFPAY ==
--- NOTE | 2021-12-23 | DI.CT.S_ITS ---
PROCEDURE: CT SINUS SCREEN WO CON INDICATIONS: Chronic sinusitis, unspecified TECHNIQUE: Noncontrast 3.0 mm axial images acquired from the frontal sinuses to the mid-sella, with coronal and sagittal reformats. For radiation dose reduction, the following was used: automated exposure control, adjustment of mA and/or kV according to patient size. COMPARISON: [facility], CT, SINUS SCREEN WO CONTRAST, 05/18/2016, 11:05. [facility], US, US SOFT TISSUE HEAD AND NECK, 11/03/2021, 10:56. FINDINGS: Image quality: Excellent. Maxillary Sinuses: No bony remodeling or destruction. Sinuses are clear. Ethmoid Air Cells: No bony remodeling or destruction. Focal moderate mucosal thickening is seen involving the posterior right ethmoid air cells. Sphenoid Sinuses: There is complete opacification of the right sphenoid sinus. The left seen at sinus is unremarkable. There is thickening of the steven of the right sphenoid sinus. Frontal Sinuses: No bony remodeling or destruction. Sinuses are clear. Ostiomeatal Complexes: Ostiomeatal complexes are patent, yet they are constitutionally narrowed, with bilateral Robby cells. Miscellaneous: Visualized intra-orbital contents are normal. No gregoria bullosa or paradoxical turbinate curvature. No nasal septal deviation. IMPRESSION: Focal right sphenoid sinus disease with involvement the posterior right ethmoid air cells. Bony remodeling changes are seen, which is consistent with chronic sinusitis. Narrowed ostiomeatal complexes, with bilateral Robby cells. Dictated by: Atilio Sandoval M.D. on 12/23/2021 at 13:51 Approved by: Atilio Sandoval M.D. on 12/23/2021 at 13:53
== END ==
PROVIDERS: Family Provider Internal Medicine; PCP Internal Medicine; Referring Provider Otolaryngology Facial Plastic Surgery; Visit Provider Otolaryngology Facial Plastic Surgery
DX: J32.4 Chronic pansinusitis (principal)
CPT/HCPCS: 70486

== ENCOUNTER → 2022-02-21 08:29 | Outpatient (CLI) | payer MEDICARE, OTHER, SELFPAY ==
[2022-02-21 09:45] LABS: Alanine Aminotransferase 28 IU/L (<50); Albumin 4.2 g/dL (3.5-5.0); Albumin Globulin Ratio 1.8 (1.0-2.8); Alkaline Phosphatase 47 U/L (38-126); Aspartate Aminotransferase 35 IU/L (17-59); BUN Creatinine Ratio 21.3 (6-22); Blood Urea Nitrogen 16 mg/dL (9-20); Calcium 8.8 mg/dL (8.4-10.2); Carbon Dioxide 25 mmol/L (22-32); Chloride 99 mmol/L (98-107); Estimated Glomerular Filt Rate > 60 mL/min (>60); Globulin 2.4 g/dL (1.7-4.1); Glucose 109 mg/dL (80-110); HEMOLYSIS < 15 (0-50); Potassium 4.1 mmol/L (3.4-5.1); Sodium 133 mmol/L (137-145); Total Protein 6.6 g/dL (6.3-8.2)
[2022-02-24 07:37] LABS: Cholesterol, Total 93 mg/dL (100-199); HDL-Cholesterol 25 mg/dL (>39); HDL-Particle (Total) 22.3 umol/L (>=30.5); Historical Reading Comment: (.); LDL Particle 673 nmol/L (<1000); LDL Size 19.8 nm (>20.5); LDL-Cholsterol 44 mg/dL (0-99); LP-IR Score 71 (<=45); Small LDL- Particle 481 nmol/L (<=527); Triglycerides 132 mg/dL (0-149)
== END ==
PROVIDERS: Family Provider Internal Medicine; PCP Internal Medicine; Referring Provider Specialist; Visit Provider Specialist
DX: E78.2 Mixed hyperlipidemia (principal)
CPT/HCPCS: 36415; 80053; 80061; 83704

== ENCOUNTER → 2022-06-01 11:45 | Outpatient (CLI) | payer MEDICARE, OTHER, SELFPAY ==
[2022-06-01 14:54] LABS: Prostate Specific Antigen 23.5 ng/mL (0.10-4.00)
== END ==
PROVIDERS: Family Provider Internal Medicine; Referring Provider Urology; Visit Provider Urology
DX: C61 Malignant neoplasm of prostate (principal)
CPT/HCPCS: 36415; 84153

== ENCOUNTER → 2022-06-23 13:17 | Outpatient (CLI) | payer MEDICARE, OTHER, SELFPAY ==
[2022-06-23 16:23] LABS: Prostate Specific Antigen 20.8 ng/mL (0.10-4.00)
== END ==
PROVIDERS: Family Provider Internal Medicine; Referring Provider Urology; Visit Provider Urology
DX: C61 Malignant neoplasm of prostate (principal)
CPT/HCPCS: 36415; 84153

== ENCOUNTER → 2022-06-24 09:48 | Outpatient (CLI) | payer MEDICARE, OTHER, SELFPAY ==
[2022-06-24 10:52] LABS: Alanine Aminotransferase 25 IU/L (<50); Albumin 4.2 g/dL (3.5-5.0); Albumin Globulin Ratio 1.6 (1.0-2.8); Alkaline Phosphatase 50 U/L (38-126); Aspartate Aminotransferase 24 IU/L (17-59); BUN Creatinine Ratio 16.9 (6-22); Bilirubin Total 0.7 mg/dL (0.2-1.3); Blood Urea Nitrogen 12 mg/dL (9-20); Calcium 8.9 mg/dL (8.4-10.2); Carbon Dioxide 26 mmol/L (22-32); Chloride 98 mmol/L (98-107); Cholesterol 105 mg/dL (140-199); Estimated Glomerular Filt Rate > 60 mL/min (>60); Globulin 2.6 g/dL (1.7-4.1); Glucose 105 mg/dL (80-110); HDL Cholesterol 32 mg/dL (40-60); HEMOLYSIS < 15 (0-50); LDL Cholesterol Calculated 54 mg/dL (<100); Potassium 4.2 mmol/L (3.4-5.1); Sodium 133 mmol/L (137-145); Total Protein 6.8 g/dL (6.3-8.2); Triglycerides 93 mg/dL (35-150)
== END ==
PROVIDERS: Family Provider Internal Medicine; Referring Provider Specialist; Visit Provider Specialist
DX: E78.2 Mixed hyperlipidemia (principal)
CPT/HCPCS: 36415; 80053; 80061

== ENCOUNTER 2022-07-22 12:13 | Emergency (ER) | payer MEDICARE, OTHER, SELFPAY ==
[2022-07-22 12:18] VITALS: BP 158/77; PULSE 71; RESP 15; TEMP 37.2; O2SAT 95; BMI 29.1
--- NOTE | 2022-07-22 12:24 | DI.RAD.S_ITS ---
PROCEDURE: XR CHEST 2V INDICATIONS: cough, bloody sputum, sore throat TECHNIQUE: 2 views of the chest were acquired. COMPARISON: [facility], , CHEST 1 VIEW, 03/14/2016, 13:02. FINDINGS: Surgical changes and devices: None. Lungs and pleura: Lungs are abnormal, with alveolar consolidation at the left lung base posteriorly. This results in increased radiodensity at the low thoracic spine on the lateral view, and blurring of the bronchovascular markings and medial left diaphragm on the frontal view.. No pleural effusions or pneumothorax. Mediastinum: Mediastinal contours are normal. Heart size is normal. Bones and chest wall: No suspicious bony abnormalities. Soft tissues appear unremarkable. IMPRESSION: Left lower lobe pneumonia. Dictated by: Daniel Ronquillo M.D. on 07/22/2022 at 13:14 Approved by: Daniel Ronquillo M.D. on 07/22/2022 at 13:14
--- NOTE | 2022-07-22 12:29 | ED_ITS ---
HPI - General Adult General Chief complaint: Upper Respiratory Symptoms Stated complaint: Cough, sore throat, fever, negative covid home fabian Time Seen by Provider: 07/22/22 12:26 Source: patient Mode of arrival: Ambulatory History of Present Illness HPI narrative: 77-year-old male without underlying lung pathology here for evaluation of several days of a sore throat and postnasal drip and then 3 days of a cough. He is having a productive cough. It is blood-tinged. He went to the walk-in clinic within the past 24 hours. No testing or x-rays were done he continues to have the symptoms although his sore throat has improved. Related Data Home Medications Medication Instructions Recorded Confirmed ASPIRIN (#ASPIRIN) 81 mg PO Q DAY ##0 04/26/11 04/28/22 Terazosin HCl (HYTRIN) 2 mg PO HS ##0 04/26/11 04/28/22 VITAMIN D (Vitamin D3) 1,000 unit PO QDAY ##0 04/26/11 04/28/22 metoprolol tartrate 50 mg tablet 50 mg PO BID ##0 04/26/11 04/28/22 omeprazole magnesium 10 mg oral 20 mg PO DAILY 02/15/19 04/28/22 suspension,delayed release (Prilosec) rosuvastatin 20 mg tablet (Crestor) 20 mg PO DAILY 02/15/19 04/28/22 tadalafil 5 mg tablet (Cialis) 5 mg PO DAILY PRN not sure 02/15/19 04/28/22 Resmed Aircurve BIPAP #1 ea 02/18/19 04/28/22 naproxen sodium 220 mg capsule 220 mg PO BID PRN Pain (Scale 04/03/19 04/28/22 (Aleve) Score 4-6) Previous Rx's Medication Instructions Recorded meclizine 25 mg tablet 25 mg PO BID PRN motion sickness 09/11/19 #20 tabs ondansetron 4 mg disintegrating 4 mg PO BID PRN nausea and 09/11/19 tablet vomiting #14 tabs benzonatate 100 mg capsule 100 mg PO BID PRN cough #20 caps 07/21/22 ipratropium bromide 42 mcg (0.06 2 spray intranasal TID 4 days #15 07/21/22 %) nasal spray mL azithromycin 250 mg tablet See Rx Instructions PO .COMPLEX #6 07/22/22 tabs Allergies Allergy/AdvReac Type Severity Reaction Status Date / Time lisinopril [LISINOPRIL] Allergy Unknown Verified 07/22/22 12:24 Review of Systems Constitutional Constitutional: Reports system reviewed and no additional complaints, except as documented ENT Ears, Nose, Mouth, and Throat: Reports system reviewed and no additional complaints, except as documented Respiratory Respiratory: Reports as per HPI and Reports system reviewed and no additional complaints, except as documented Integumentary/Breasts Skin/Breast: Reports system reviewed and no additional complaints, except as documented Neurologic Neurologic: Reports system reviewed and no additional complaints, except as documented Hematologic/Lymphatic On Anticoagulants: No Patient History Medical History Acute sinusitis Aortic aneurysm Bacterial sinusitis CAD (coronary artery disease) Central sleep apnea Depression Dyslipidemia Footdrop (~2004) GERD (gastroesophageal reflux disease) Hypertension Nephrolithiasis (~1997) Obesity (BMI 30-39.9) Obstructive sleep apnea of adult Osteoarthritis Surgical History History of Nancy fundoplication History of shoulder surgery S/P lumbar microdiscectomy Social History 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 lives independently: Yes caregiver/support person: No housing: other (spends [place]ain[place] in [place]) occupational status: other (retired) Previous occupational history: retired travel history: recurrent (They are snowbirds, spending sainz in [place], [place] in [facility]) Smoking Status: Never smoker alcohol intake: former substance use type: does not use Smoking Status: Never smoker alcohol intake frequency: holidays/special occasions only Substance Use Type: does not use Exam Initial Vital Signs Initial Vital Signs: Vital Signs Temperature 98.9 F 07/22/22 12:18 Pulse Rate 71 07/22/22 12:18 Respiratory Rate 15 07/22/22 12:18 Blood Pressure 158/77 H 07/22/22 12:18 Pulse Oximetry 95 07/22/22 12:18 Oxygen Delivery Method 07/22/22 12:18 Const General: cooperative and comfortable HENMT Head: normal to inspection and normocephalic Throat: posterior oropharynx normal Resp Effort & Inspection: normal respiratory effort Auscultation: crackles on the right and rhonchi (Right side) Skin General: no rashes or lesions noted Neuro General: patient alert, patient awake and moves all extremities Speech: speech normal Extrem General: normal to inspection and capillary refill normal Psych Appearance: grossly normal and well kempt Course Orders Ordered: ED Orders 07/22/22 12:18 COVID19 -Nasal RAPID/Pre-Proc Stat 07/22/22 12:24 XR chest 2V Stat Vital Signs Vital signs: Vital Signs - 8 hr 07/22/22 12:18 Temperature 98.9 F Pulse Rate 71 Respiratory Rate 15 Blood Pressure 158/77 H Pulse Oximetry 95 Oxygen Delivery Method Room Air Medical Decision Making Lab Data Labs: Lab Results 07/22/22 Range/Units 12:18 SARS-CoV-2 (PCR) Negative (Negative) Point of Care Testing Rapid Strep A Negative Point of care testing: Point of Care Testing Rapid Strep A Negative Imaging Data Chest x-ray: Radiologist's Impression: [address] [address] XRay Report Signed Patient: Chris Ba MR#: [id number] : 1945 Acct:[id number] Age/Sex: 77 / M Date of Service: 07/22/22 Loc: ED Accession Number: [id number] ?? Procedure: XR chest 2V Ordering Provider: Alek Guevara D.O. PROCEDURE:? XR CHEST 2V ? INDICATIONS:? cough, bloody sputum, sore throat ? TECHNIQUE:? 2 views of the chest were acquired.? ? COMPARISON:? [facility], , CHEST 1 VIEW, 03/14/2016, 13:02. ? FINDINGS:? ? Surgical changes and devices:? None.? ? Lungs and pleura:? Lungs are abnormal, with alveolar consolidation at the left lung base posteriorly.? This results in increased radiodensity at the low thoracic spine on the lateral view, and blurring of the bronchovascular markings and medial left diaphragm on the frontal view..? No pleural effusions or pneumothorax.? ? Mediastinum:? Mediastinal contours are normal.? Heart size is normal.? ? Bones and chest wall:? No suspicious bony abnormalities.? Soft tissues appear unremarkable.? ? IMPRESSION:? Left lower lobe pneumonia. ? ? Dictated by: Daniel Ronquillo M.D. on 07/22/2022 at 13:14 ? ? Approved by: Daniel Ronquillo M.D. on 07/22/2022 at 13:14? MDM Narrative Medical decision making narrative: Not hypoxic. Does have coarse lung exam. Chest x-ray concerning for left lower lobe pneumonia. This would qualify as a community-acquired pneumonia. Will start the patient on antibiotics. Was given return precautions follow-up instructions. He expressed understanding and agreement Discharge Plan Departure Patient Disposition: Home Clinical Impression: Pneumonia Instructions: DI for Pneumonia -- Adult Activity Restrictions/Additional Instructions: Prescription for antibiotics was sent to [facility] per your request. Please take it as directed. Contact your primary doctor for follow-up. Return to emergency department for any new worsening symptoms. Prescriptions: New azithromycin 250 mg tablet See Rx Instructions .ROUTE .COMPLEX Qty: 6 0RF Rx Instructions: For 250 mg dose pack: take 500 mg today (day 1), then 250 mg for 4 days (days 2-5) No Action ipratropium bromide 42 mcg (0.06 %) spray,non-aerosol 2 spray intranasal TID 4 Days Qty: 15 0RF Rx Instructions: administer into each nostril benzonatate 100 mg capsule 100 mg PO BID PRN (Reason: cough) Qty: 20 0RF ondansetron 4 mg tablet,disintegrating 4 mg PO BID PRN (Reason: nausea and vomiting) Qty: 14 0RF meclizine 25 mg tablet 25 mg PO BID PRN (Reason: motion sickness) Qty: 20 0RF Terazosin HCl (HYTRIN) 2 mg PO HS Qty: 0 ASPIRIN (#ASPIRIN) 81 mg PO Q DAY Qty: 0 metoprolol tartrate 50 MG tablet 50 mg PO BID Qty: 0 VITAMIN D (Vitamin D3) 1,000 unit PO QDAY Qty: 0 naproxen sodium [Aleve] 220 mg Capsule 220 mg PO BID PRN (Reason: Pain (Scale Score 4-6)) rosuvastatin [Crestor] 20 mg tablet 20 mg PO DAILY tadalafil [Cialis] 5 mg tablet 5 mg PO DAILY PRN (Reason: not sure) Prilosec 10 mg susp,delayed release for recon 20 mg PO DAILY (DME) Resmed Aircurve BIPAP Qty: 1 Dose Instruction: As directed Label Comments: Pressure: IPAP 20 EPAP 8 DME: [facility] Rx Instructions: As directed Referrals: Alisha Zurita PA-C [Primary Care Provider] -
[2022-07-22 12:58] LABS: COVID19 -Nasal RAPID Negative (Negative)
[2022-07-22 13:34] VITALS: BP 116/65; PULSE 65; RESP 18; O2SAT 94
== END 2022-07-22 13:36 | disposition home or self-care (01) ==
PROVIDERS: Emergency Provider Emergency Medicine; Family Provider Internal Medicine
DX: J18.8 Other pneumonia, unspecified organism (principal); Z20.822 Contact with and (suspected) exposure to COVID-19
CPT/HCPCS: 71046; 87635; 87880; 99282; 99283; C9803

== ENCOUNTER 2022-07-25 09:49 | Emergency (ER) | payer MEDICARE, OTHER, SELFPAY ==
[2022-07-25] VITALS (10 sets, daily range): BP systolic 118–159; BP diastolic 72–79; PULSE 64–96; RESP 13–26; TEMP 36.2; O2SAT 93–96
--- NOTE | 2022-07-25 10:46 | DI.RAD.S_ITS ---
PROCEDURE: XR CHEST 2V INDICATIONS: pneumonia TECHNIQUE: 2 views of the chest were acquired. COMPARISON: [facility], , XR CHEST 2V, 07/22/2022, 12:36. [facility], , CHEST 1 VIEW, 03/14/2016, 13:02. FINDINGS: Surgical changes and devices: None. Lungs and pleura: Interval worsening of left lower lobe consolidative opacity. Trace left pleural effusion. No pneumothorax. Similar nonspecific right basilar opacities. Mediastinum: Mediastinal and hilar contours appear similar to before. Bones and chest wall: No suspicious bony abnormalities. Soft tissues appear unremarkable. IMPRESSION: Interval worsening of left lower lobe consolidation. Similar nonspecific right basilar opacities. Dictated by: Pedro Guillory M.D. on 07/25/2022 at 11:24 Approved by: Pedro Guillory M.D. on 07/25/2022 at 11:26
[2022-07-25 10:58] LABS: Add Manual Diff / Slide Review NO; Basophils Absolute Auto 100 /uL (0-100); Basophils Percent Auto 0.8 % (0-2); Eosinophils Absolute Auto 200 /uL (0-450); Hematocrit 33.8 % (41-53); Hemoglobin 11.9 g/dL (13.5-17.5); Lymphocytes Absolute Auto 1200 /uL (1100-4500); Lymphocytes Percent Auto 16.1 % (25-40); Mean Corpuscular HGB Conc 35.1 % (30-36); Mean Corpuscular Hemoglobin 31.8 PG (26-34); Mean Corpuscular Volume 90.6 fL (80-100); Monocytes Absolute Auto 600 /uL (0-900); Monocytes Percent Auto 8.7 % (3-14); Neutrophils Absolute Auto 5100 /uL (1500-7000); Neutrophils Percent Auto 71.4 % (50-75); Platelet Count 175 X10^3/uL (150-400); Red Blood Cell Count 3.73 X10^6/uL (4.5-5.9); Red Cell Distribution Width 13.6 % (11.6-14.8); White Blood Cell Count 7.1 X10^3/uL (4.5-11.0)
[2022-07-25 11:16] LABS: COVID19 -Nasal RAPID Negative (Negative)
[2022-07-25 11:20] LABS: Lactate (Lactic Acid) 0.7 mmol/L (0.7-2.1)
[2022-07-25 11:21] LABS: Alanine Aminotransferase 15 IU/L (<50); Albumin 3.8 g/dL (3.5-5.0); Albumin Globulin Ratio 1.3 (1.0-2.8); Alkaline Phosphatase 43 U/L (38-126); Aspartate Aminotransferase 22 IU/L (17-59); BUN Creatinine Ratio 17.6 (6-22); Bilirubin Total 0.7 mg/dL (0.2-1.3); Blood Urea Nitrogen 12 mg/dL (9-20); Calcium 8.4 mg/dL (8.4-10.2); Carbon Dioxide 25 mmol/L (22-32); Chloride 96 mmol/L (98-107); Creatine Kinase 152 U/L (55-170); Estimated Glomerular Filt Rate > 60 mL/min (>60); Glucose 100 mg/dL (80-110); Potassium 3.9 mmol/L (3.4-5.1); Sodium 131 mmol/L (137-145); Total Protein 6.8 g/dL (6.3-8.2)
[2022-07-25 11:33] LABS: NT-proBNP (BNP-Adult 18+) 209 pg/mL (<450); Troponin I < 0.012 ng/mL (0.01-0.034)
[2022-07-25 11:36] LABS: Creatine Kinase MB 1.45 ng/mL (<2.37); HEMOLYSIS 44 (0-50)
[2022-07-25 11:37] LABS: Procalcitonin 0.05 ng/mL (<0.5)
--- NOTE | 2022-07-25 11:37 | ED.SOB ---
HPI - SOB/Dyspnea General Chief Complaint: Shortness of Breath/Dyspnea Stated Complaint: Pneumonia not getting better 3days Time Seen by Provider: 07/25/22 10:46 Source: patient Mode of arrival: Wheelchair Limitations: no limitations History of Present Illness HPI Narrative: This is a 77-year-old male with history of known aortic aneurysm that is being followed by Cardiology, hypertension, dyslipidemia prostate cancer he is supposed to initiate radiation and hormonal therapy and is on aspirin 81 mg daily. Patient states had 7 days of cough with hemoptysis starting about day 3 or 4 which has been persistent. He had mild shortness of breath particularly when he has a bad coughing spell. He denies any chest pain or pressure. He states when he has productive sputum it is mostly just blood looks like a little bit of clot 1-2 tsp several times daily. He denies any syncope or lightheadedness. No nausea or vomiting. He had some diarrhea initially not persistently. No urinary symptoms neuro no swelling of extremities. Patient states he is had multiple orthopedic surgeries, no cardiac stents he is had L4-L5 diskectomy, left MCL, left shoulder surgery and right shoulder surgery x2 as well as hiatal hernia repair. Patient is allergic to lisinopril. Tobacco, no alcohol or illicit. Patient did have COVID this summer and flew to the [facility] for a cruise. Related Data Home Medications Medication Instructions Recorded Confirmed ASPIRIN (#ASPIRIN) 81 mg PO Q DAY ##0 04/26/11 04/28/22 Terazosin HCl (HYTRIN) 2 mg PO HS ##0 04/26/11 04/28/22 VITAMIN D (Vitamin D3) 1,000 unit PO QDAY ##0 04/26/11 04/28/22 metoprolol tartrate 50 mg tablet 50 mg PO BID ##0 04/26/11 04/28/22 omeprazole magnesium 10 mg oral 20 mg PO DAILY 02/15/19 04/28/22 suspension,delayed release (Prilosec) rosuvastatin 20 mg tablet (Crestor) 20 mg PO DAILY 02/15/19 04/28/22 tadalafil 5 mg tablet (Cialis) 5 mg PO DAILY PRN not sure 02/15/19 04/28/22 Resmed Aircurve BIPAP #1 ea 02/18/19 04/28/22 naproxen sodium 220 mg capsule 220 mg PO BID PRN Pain (Scale 04/03/19 04/28/22 (Aleve) Score 4-6) Previous Rx's Medication Instructions Recorded meclizine 25 mg tablet 25 mg PO BID PRN motion sickness 09/11/19 #20 tabs ondansetron 4 mg disintegrating 4 mg PO BID PRN nausea and 09/11/19 tablet vomiting #14 tabs benzonatate 100 mg capsule 100 mg PO BID PRN cough #20 caps 07/21/22 azithromycin 250 mg tablet See Rx Instructions PO .COMPLEX #6 07/22/22 tabs amoxicillin 875 mg-potassium 1 tab PO BID #20 tabs 07/25/22 clavulanate 125 mg tablet codeine 10 mg-guaifenesin 100 mg/5 10 ml PO Q6H PRN cough #120 mL 07/25/22 mL oral liquid Allergies Allergy/AdvReac Type Severity Reaction Status Date / Time lisinopril [LISINOPRIL] Allergy Unknown Verified 07/22/22 12:24 Review of Systems Review of Systems ROS Unobtainable: All systems reviewed & are unremarkable except as noted in HPI and below Patient History Medical History Acute sinusitis Aortic aneurysm Bacterial sinusitis CAD (coronary artery disease) Central sleep apnea Depression Dyslipidemia Footdrop (~2004) GERD (gastroesophageal reflux disease) Hypertension Nephrolithiasis (~1997) Obesity (BMI 30-39.9) Obstructive sleep apnea of adult Osteoarthritis Surgical History History of Nancy fundoplication History of shoulder surgery S/P lumbar microdiscectomy Social History marital status: 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: spouse lives independently: Yes caregiver/support person: No housing: other (spends sainz in [place]) occupational status: other (retired) Previous occupational history: retired travel history: recurrent (They are snowbirds, spending sainz in [place], [facility] in [facility]) Smoking Status: Never smoker alcohol intake: former substance use type: does not use Smoking Status: Never smoker alcohol intake frequency: holidays/special occasions only Substance Use Type: does not use Exam Narrative Exam Narrative: GENERAL: Alert and oriented x three, male in mild distress HEENT: Head normocephalic, atraumatic, EOMI, pupils reactive, face symmetric, moist mucous membranes NECK: Supple, full range of motion CARDIOVASCULAR: Regular rate and rhythm without murmurs, rubs or gallops. RESPIRATORY: Breath sounds equal bilaterally, no wheezes rales or rhonchi. No tachypnea accessory muscle use. Persistent dry cough with small amount of hemoptysis intermittently. ABDOMEN: Soft, nontender. Normoactive bowel sounds all 4 quadrants. No guarding or rebound, rigidity, no mass : No CVA tenderness EXTREMITIES: Normal range of motion, no clubbing or edema. Neurovascularly intact NEUROLOGICAL: Cranial nerves II through XII grossly intact. Moving all extremities SKIN: Warm, dry, no petechiae, no rashes or lesions. Initial Vital Signs Initial Vital Signs: Vital Signs Temperature 97.2 F L 07/25/22 09:59 Pulse Rate 96 H 07/25/22 09:59 Respiratory Rate 18 07/25/22 09:59 Blood Pressure 159/79 H 07/25/22 09:59 Pulse Oximetry 94 07/25/22 09:59 Oxygen Delivery Method 07/25/22 09:59 Course Orders Ordered: ED Orders 07/25/22 10:35 BNP [NT-proBNP (BNP-Adult 18+)] Stat CBC Auto Diff [Complete Blood Count AUTO DIFF] Stat CMP [Comprehensive Metabolic Panel] Stat Lactate (Lactic Acid) Stat Procalcitonin Stat Troponin & CK Cardiac Panel Stat 07/25/22 10:46 Chest [XR chest 2V] Stat 07/25/22 10:50 COVID19 -Nasal RAPID/Pre-Proc Stat 07/25/22 11:25 Blood Culture Stat 07/25/22 11:50 CT angio chest PE protocol Stat Discontinued Medications Guaifenesin/Codeine Phosphate (Codeine/Guaifenesin Liquid 5ml Udc) 10 ml PO NOW ONE Stop: 07/25/22 11:51 Last Admin: 07/25/22 12:30 Dose: 10 ml Documented By: KANE Ondansetron HCl (Ondansetron 4 Mg/2 Ml Inj) 4 mg IV NOW ONE Stop: 07/25/22 11:51 Last Admin: 07/25/22 12:29 Dose: 4 mg Documented By: KANE Vital Signs Vital signs: Vital Signs - 8 hr 07/25/22 11:30 07/25/22 11:30 07/25/22 12:00 Pulse Rate 71 71 Respiratory Rate 18 25 H Blood Pressure 118/72 Pulse Oximetry 93 93 07/25/22 12:29 07/25/22 12:29 07/25/22 12:30 Pulse Rate 64 64 Respiratory Rate 20 13 Blood Pressure 148/76 H Pulse Oximetry 96 95 07/25/22 13:00 07/25/22 13:30 07/25/22 13:44 Pulse Rate 66 71 Respiratory Rate 26 H Blood Pressure 136/72 Pulse Oximetry 96 94 07/25/22 13:44 Pulse Rate 77 Respiratory Rate 25 H Blood Pressure Pulse Oximetry 93 MDM - SOB/Dyspnea Lab Data Result diagrams: 07/25/22 10:35 07/25/22 10:35 Labs: Lab Results 07/25/22 07/25/22 07/25/22 Range/Units 10:35 10:35 10:35 WBC 7.1 (4.5-11.0) X10^3/uL RBC 3.73 L (4.5-5.9) X10^6/uL Hgb 11.9 L (13.5-17.5) g/dL Hct 33.8 L (41-53) % MCV 90.6 (80-100) fL MCH 31.8 (26-34) PG MCHC 35.1 (30-36) % RDW 13.6 (11.6-14.8) % Plt Count 175 (150-400) X10^3/uL Neut % (Auto) 71.4 (50-75) % Lymph % (Auto) 16.1 L (25-40) % [place] % (Auto) 8.7 (3-14) % Eos % (Auto) 3.0 (2-4) % Baso % (Auto) 0.8 (0-2) % Neut # (Auto) 5100 (6138-1735) /uL Lymph # (Auto) 1200 (8362-5207) /uL [place] # (Auto) 600 (0-900) /uL Eos # (Auto) 200 (0-450) /uL Baso # (Auto) 100 (0-100) /uL Sodium 131 L (137-145) mmol/L Potassium 3.9 (3.4-5.1) mmol/L Chloride 96 L (98-107) mmol/L Carbon Dioxide 25 (22-32) mmol/L BUN 12 (9-20) mg/dL Creatinine 0.68 (0.66-1.25) mg/dL Estimated GFR > 60 (>60) mL/min BUN/Creatinine Ratio 17.6 (6-22) Glucose 100 (80-110) mg/dL Lactate 0.7 (0.7-2.1) mmol/L Calcium 8.4 (8.4-10.2) mg/dL Total Bilirubin 0.7 (0.2-1.3) mg/dL AST 22 (17-59) IU/L ALT 15 (<50) IU/L Alkaline Phosphatase 43 (38-126) U/L Total Creatine Kinase 152 (55-170) U/L CK-MB (CK-2) 1.45 (<2.37) ng/mL CK-MB (CK-2) Rel Index 1.0 L (1.5-5.0) % Troponin I < 0.012 (0.01-0.034) ng/mL NT-Pro-B Natriuret Pep 209 (<450) pg/mL Total Protein 6.8 (6.3-8.2) g/dL Albumin 3.8 (3.5-5.0) g/dL Globulin 3.0 (1.7-4.1) g/dL Albumin/Globulin Ratio 1.3 (1.0-2.8) Procalcitonin 0.05 (<0.5) ng/mL SARS-CoV-2 (PCR) (Negative) 07/25/22 Range/Units 10:50 WBC (4.5-11.0) X10^3/uL RBC (4.5-5.9) X10^6/uL Hgb (13.5-17.5) g/dL Hct (41-53) % MCV (80-100) fL MCH (26-34) PG MCHC (30-36) % RDW (11.6-14.8) % Plt Count (150-400) X10^3/uL Neut % (Auto) (50-75) % Lymph % (Auto) (25-40) % [place] % (Auto) (3-14) % Eos % (Auto) (2-4) % Baso % (Auto) (0-2) % Neut # (Auto) (7404-3501) /uL Lymph # (Auto) (5641-1794) /uL [place] # (Auto) (0-900) /uL Eos # (Auto) (0-450) /uL Baso # (Auto) (0-100) /uL Sodium (137-145) mmol/L Potassium (3.4-5.1) mmol/L Chloride (98-107) mmol/L Carbon Dioxide (22-32) mmol/L BUN (9-20) mg/dL Creatinine (0.66-1.25) mg/dL Estimated GFR (>60) mL/min BUN/Creatinine Ratio (6-22) Glucose (80-110) mg/dL Lactate (0.7-2.1) mmol/L Calcium (8.4-10.2) mg/dL Total Bilirubin (0.2-1.3) mg/dL AST (17-59) IU/L ALT (<50) IU/L Alkaline Phosphatase (38-126) U/L Total Creatine Kinase (55-170) U/L CK-MB (CK-2) (<2.37) ng/mL CK-MB (CK-2) Rel Index (1.5-5.0) % Troponin I (0.01-0.034) ng/mL NT-Pro-B Natriuret Pep (<450) pg/mL Total Protein (6.3-8.2) g/dL Albumin (3.5-5.0) g/dL Globulin (1.7-4.1) g/dL Albumin/Globulin Ratio (1.0-2.8) Procalcitonin (<0.5) ng/mL SARS-CoV-2 (PCR) Negative (Negative) Imaging Data Chest x-ray: Radiologist's Impression: [address] [address] XRay Report Signed Patient: Chris Ba MR#: [id number] : 1945 Acct:[id number] Age/Sex: 77 / M Date of Service: 07/25/22 Loc: ED Accession Number: [id number] ?? Procedure: XR chest 2V Ordering Provider: Caitlin Alston D.O. PROCEDURE:? XR CHEST 2V ? INDICATIONS:? pneumonia ? TECHNIQUE:? 2 views of the chest were acquired.? ? COMPARISON:? [facility], CR, XR CHEST 2V, 07/22/2022, 12:36.? [facility], CR, CHEST 1 VIEW, 03/14/2016, 13:02. ? FINDINGS:? ? Surgical changes and devices:? None.? ? Lungs and pleura:? Interval worsening of left lower lobe consolidative opacity.? Trace left pleural effusion.? No pneumothorax.? Similar nonspecific right basilar opacities. ? Mediastinum:? Mediastinal and hilar contours appear similar to before. ? Bones and chest wall:? No suspicious bony abnormalities.? Soft tissues appear unremarkable.? ? IMPRESSION:? Interval worsening of left lower lobe consolidation. Similar nonspecific right basilar opacities.? ? Dictated by: Pedro Guillory M.D. on 07/25/2022 at 11:24 ? ? Approved by: Pedro Guillory M.D. on 07/25/2022 at 11:26?? CT scan - chest: Radiologist's Impression: Close Chest CTA (Signed) Geovanni Patel - 07/25/22 Chest X-Ray (Signed) Pedro Guillory - 07/25/22 Chest X-Ray (Signed) Daniel Ronquillo - 07/22/[address] (Signed) Atilio Sandoval - 12/23/21 Head/Neck Ultrasound (Signed) Atilio Sandoval - 11/03/21 Echocardiogram Ultrasound (Signed) Mateo Alonso - 08/06/[address] (Addendum) Bernardo Clark - 07/24/20 Echocardiogram Ultrasound (Signed) Mtaeo Alonso - 08/05/19 Telemetry Strips 04/03/19 Wrist X-Ray (Signed) Michael Aguila - 09/04/18 Cervical Spine X-Ray (Signed) Dawson Mccracken - 04/03/18 Launch?Image [address] [address] [address] Scan Report Signed Patient: Chris Ba MR#: [id number] : 1945 Acct:[id number] Age/Sex: 77 / M Date of Service: 07/25/22 Loc: ED Accession Number: [id number] ?? Procedure: CT angio chest PE protocol Ordering Provider: Caitlin Alston D.O. PROCEDURE:? CT ANGIO CHEST PE PROTOCOL ? INDICATIONS:? pna worsening, hemoptysis ? TECHNIQUE:? After the administration of intravenous contrast, 2 mm thick sections acquired from the pulmonary apices to the posterior costophrenic angles.? For radiation dose reduction, the following was used:? automated exposure control, adjustment of mA and/or kV according to patient size.? ? COMPARISON:? [facility], CT, CT CHEST W CON, 07/24/2020, 15:32. ? FINDINGS:? Image quality:? Excellent.? ? Pulmonary arteries:? Pulmonary arteries are normal in size, and demonstrate no intraluminal filling defects to suggest central pulmonary embolism.? ? Lungs and pleura:? Left lower lung consolidation with surrounding pulmonary infiltrate extending to involve the left upper lobe as well.? Scarring or platelike atelectasis present in the right lung base.? Small left pleural effusion noted. ? Mediastinum:? Heart size is enlarged, without pericardial effusion.? No mediastinal or hilar adenopathy.? Ascending thoracic aorta measures 5.1 cm similar prior? Small hiatal hernia? Atherosclerotic calcification noted associated with the aorta.? Dense coronary artery vascular calcification present as well ? Bones and chest wall:? No suspicious bony lesions.? Ribs and thoracic spine appear intact throughout.? Thyroid gland unremarkable.? No axillary or supraclavicular adenopathy.? ? Abdomen:? Visualized upper abdominal solid organs appear normal in the early arterial phase of enhancement.? Simple 2.4 cm hepatic cyst.? Large right renal cyst measures 9.6 cm.? There is adjacent renal cortical irregularity, incompletely assessed ? IMPRESSION:? ? 1. No evidence of pulmonary embolism or aortic dissection.? Thoracic ascending aortic aneurysm measures 5.1 cm, similar to the prior. ? 2. Left-sided pulmonary consolidation with surrounding infiltrate.? Follow-up to resolution to exclude underlying mass lesion. ? 3. Partially imaged large right renal cystic structure with adjacent cortical irregularity can be further evaluated with dedicated CT abdomen and pelvis and/or ultrasound ? ? ? Approved by: Geovanni Patel M.D. on 07/25/2022 at 11:51? ECG Data Attestation: I personally reviewed and interpreted this ECG as follows: Interpretation: Sinus rhythm rate of 60 9p are 150 QRS 88 QTC 447[address] No acute ST changes appreciated. No acute change between now on 03/24 [facility] Narrative Medical decision making narrative: This is a 77-year-old male with complaint of pneumonia he had productive cough and shortness of breath starting about a week ago he is had some small amount of hemoptysis daily with cough particularly large coughing fits. Patient did have COVID in the summer he did have long distance travel at that time. His chest x-ray is worsening despite being on azithromycin for 3 days. Does not appear septic, hemodynamically stable, hemoglobin is 11 today. Procalcitonin is negative COVID is negative as well as troponin. Patient is on aspirin no other blood thinners. Because of persistent hemoptysis this may be secondary infection but would rule out pulmonary emboli. CT angio was obtained and show no PE, consolidation in the left lung consistent with pneumonia but can not exclude mass. Also renal structure is noted. Discussed with patient need for follow-up. I would have patient continue azithromycin but add Augmentin for better coverage. Hemoptysis has been very slight not persistent patient did have some improvement in cough with codeine. Prescription for Augmentin to continue with azithromycin and codeine for cough were given. Return precautions were discussed at length and need for follow-up and time frame. This was done with both patient and his . Discharge Plan Departure Patient Disposition: Home Clinical Impression: Pneumonia, Lung consolidation, Cyst of right kidney Activity Restrictions/Additional Instructions: Follow-up with your physician for recheck, talk with your physician about having repeat imaging of your pneumonia to exclude mass as well as imaging of the structure in your right kidney. Give them a call this week to help set up follow-up/imaging. Your imaging today shows that your thoracic aneurysm is stable in size with no signs of pulmonary embolism (blood clots) or dissection. It shows a left-sided consolidation/pneumonia but should be followed up for repeat imaging to exclude mass. Incidentally found to have a large right renal cyst or cystic structure which should be followed up with either ultrasound or CT with your primary care. Continue your azithromycin Please start the 2nd antibiotic and take until completion. You may take codeine every 6 hours as needed for cough. This medication can make you sleepy do not drive, perform hazardous activities or make any major decisions while taking it. This medication will make you constipated please take a stool softener once to twice daily until stools are soft and regular. Prescription sent to [facility] in [place]. Please return for increasing cough, persistent bloody sputum, new chest pain, increasing shortness of breath, lightheadedness or passing out, new swelling in extremities or other new or concerning symptoms. Prescriptions: New codeine-guaifenesin 10-100 mg/5 mL liquid 10 ml PO Q6H PRN (Reason: cough) Qty: 120 0RF Rx Instructions: 5-10mL every 6 hours as needed for cough amoxicillin-pot clavulanate 875-125 mg tablet 1 tab PO BID Qty: 20 0RF No Action benzonatate 100 mg capsule 100 mg PO BID PRN (Reason: cough) Qty: 20 0RF ondansetron 4 mg tablet,disintegrating 4 mg PO BID PRN (Reason: nausea and vomiting) Qty: 14 0RF meclizine 25 mg tablet 25 mg PO BID PRN (Reason: motion sickness) Qty: 20 0RF Terazosin HCl (HYTRIN) 2 mg PO HS Qty: 0 ASPIRIN (#ASPIRIN) 81 mg PO Q DAY Qty: 0 metoprolol tartrate 50 MG tablet 50 mg PO BID Qty: 0 VITAMIN D (Vitamin D3) 1,000 unit PO QDAY Qty: 0 azithromycin 250 mg tablet See Rx Instructions .ROUTE .COMPLEX Qty: 6 0RF Rx Instructions: For 250 mg dose pack: take 500 mg today (day 1), then 250 mg for 4 days (days 2-5) naproxen sodium [Aleve] 220 mg Capsule 220 mg PO BID PRN (Reason: Pain (Scale Score 4-6)) rosuvastatin [Crestor] 20 mg tablet 20 mg PO DAILY tadalafil [Cialis] 5 mg tablet 5 mg PO DAILY PRN (Reason: not sure) Prilosec 10 mg susp,delayed release for recon 20 mg PO DAILY (DME) Resmed Aircurvchristina BIPAP Qty: 1 Dose Instruction: As directed Label Comments: Pressure: IPAP 20 EPAP 8 DME: [facility] Rx Instructions: As directed Referrals: Alisha Zurita PA-C [Primary Care Provider] - Visit Report Forms: Patient Portal/API
--- NOTE | 2022-07-25 11:50 | DI.CT.S_ITS ---
PROCEDURE: CT ANGIO CHEST PE PROTOCOL INDICATIONS: pna worsening, hemoptysis TECHNIQUE: After the administration of intravenous contrast, 2 mm thick sections acquired from the pulmonary apices to the posterior costophrenic angles. For radiation dose reduction, the following was used: automated exposure control, adjustment of mA and/or kV according to patient size. COMPARISON: [facility], CT, CT CHEST W CON, 07/24/2020, 15:32. FINDINGS: Image quality: Excellent. Pulmonary arteries: Pulmonary arteries are normal in size, and demonstrate no intraluminal filling defects to suggest central pulmonary embolism. Lungs and pleura: Left lower lung consolidation with surrounding pulmonary infiltrate extending to involve the left upper lobe as well. Scarring or platelike atelectasis present in the right lung base. Small left pleural effusion noted. Mediastinum: Heart size is enlarged, without pericardial effusion. No mediastinal or hilar adenopathy. Ascending thoracic aorta measures 5.1 cm similar prior Small hiatal hernia Atherosclerotic calcification noted associated with the aorta. Dense coronary artery vascular calcification present as well Bones and chest wall: No suspicious bony lesions. Ribs and thoracic spine appear intact throughout. Thyroid gland unremarkable. No axillary or supraclavicular adenopathy. Abdomen: Visualized upper abdominal solid organs appear normal in the early arterial phase of enhancement. Simple 2.4 cm hepatic cyst. Large right renal cyst measures 9.6 cm. There is adjacent renal cortical irregularity, incompletely assessed IMPRESSION: 1. No evidence of pulmonary embolism or aortic dissection. Thoracic ascending aortic aneurysm measures 5.1 cm, similar to the prior. 2. Left-sided pulmonary consolidation with surrounding infiltrate. Follow-up to resolution to exclude underlying mass lesion. 3. Partially imaged large right renal cystic structure with adjacent cortical irregularity can be further evaluated with dedicated CT abdomen and pelvis and/or ultrasound Approved by: Geovanni Patel M.D. on 07/25/2022 at 11:51
[2022-07-25] MEDS: ONDANSETRON 4 MG/2 ML INJ IV (12:29)
[2022-07-25] MEDS: CODEINE/GUAIFENESIN LIQUID 5ML UDC 10 ML PO (12:30)
== END 2022-07-25 13:52 | disposition home or self-care (01) ==
PROVIDERS: Emergency Provider Emergency Medicine; Family Provider Internal Medicine
DX: J18.1 Lobar pneumonia, unspecified organism (principal); J18.9 Pneumonia, unspecified organism; N28.1 Cyst of kidney, acquired; Z20.822 Contact with and (suspected) exposure to COVID-19; I10 Essential (primary) hypertension
CPT/HCPCS: 36415; 71046; 71275; 80053; 82550; 82553; 83605; 83880; 84145; 84484; 85025; 87040; 87635; 93005; 93010; 96374; 99284; C9803; J2405; Q9967

== ENCOUNTER 2022-09-05 16:14 | Emergency (ER) | payer MEDICARE, OTHER, SELFPAY ==
--- NOTE | 2022-09-05 16:20 | DI.RAD.S_ITS ---
PROCEDURE: XR SHOULDER LT MIN 2V INDICATIONS: fall TECHNIQUE: 4 views of the shoulder were acquired. COMPARISON: None. FINDINGS: Bones: No fractures or dislocations. No suspicious bony lesions. Visualized ribs appear intact. Periarticular osteophyte formation at the acromioclavicular and glenohumeral joints. Soft tissues: No suspicious soft tissue calcifications. IMPRESSION: Osteoarthritis. No acute fracture. No osseous lesion. If symptoms and/or clinical suspicion for pathology persist, further assessment with repeat, or advanced imaging (e.g., CT, MRI, or bone scan) may be helpful for further assessment. Dictated by: Markel Valadez M.D. on 09/05/2022 at 16:45 Transcribed by: JOE on 09/05/2022 at 16:46 Approved by: Markel Valadez M.D. on 09/05/2022 at 16:57
[2022-09-05 16:21] VITALS: BP 158/74; PULSE 69; RESP 18; TEMP 36.7; O2SAT 99
--- NOTE | 2022-09-05 17:42 | ED.GENADULT ---
HPI - General Adult General Chief complaint: Extremity Injury, Upper Stated complaint: Fell on left shoulder Time Seen by Provider: 09/05/22 17:42 Source: patient Mode of arrival: Ambulatory History of Present Illness HPI narrative: 77-year-old male. Has footdrop. Yesterday evening caught his foot on the ground and fell forward and landed on his left shoulder. Has had pain is left shoulder since then. Has had an acromioplasty but no other surgeries. No elbow nor wrist pain. Related Data Home Medications Medication Instructions Recorded Confirmed ASPIRIN (#ASPIRIN) 81 mg PO Q DAY ##0 04/26/11 04/28/22 Terazosin HCl (HYTRIN) 2 mg PO HS ##0 04/26/11 04/28/22 VITAMIN D (Vitamin D3) 1,000 unit PO QDAY ##0 04/26/11 04/28/22 metoprolol tartrate 50 mg tablet 50 mg PO BID ##0 04/26/11 04/28/22 omeprazole magnesium 10 mg oral 20 mg PO DAILY 02/15/19 04/28/22 suspension,delayed release (Prilosec) rosuvastatin 20 mg tablet (Crestor) 20 mg PO DAILY 02/15/19 04/28/22 tadalafil 5 mg tablet (Cialis) 5 mg PO DAILY PRN not sure 02/15/19 04/28/22 Resmed Aircurve BIPAP #1 ea 02/18/19 04/28/22 naproxen sodium 220 mg capsule 220 mg PO BID PRN Pain (Scale 04/03/19 04/28/22 (Aleve) Score 4-6) Previous Rx's Medication Instructions Recorded meclizine 25 mg tablet 25 mg PO BID PRN motion sickness 09/11/19 #20 tabs ondansetron 4 mg disintegrating 4 mg PO BID PRN nausea and 09/11/19 tablet vomiting #14 tabs benzonatate 100 mg capsule 100 mg PO BID PRN cough #20 caps 07/21/22 azithromycin 250 mg tablet See Rx Instructions PO .COMPLEX #6 07/22/22 tabs amoxicillin 875 mg-potassium 1 tab PO BID #20 tabs 07/25/22 clavulanate 125 mg tablet codeine 10 mg-guaifenesin 100 mg/5 10 ml PO Q6H PRN cough #120 mL 07/25/22 mL oral liquid tramadol 50 mg tablet 50 mg PO Q8H PRN pain #14 tabs 09/05/22 Allergies Allergy/AdvReac Type Severity Reaction Status Date / Time lisinopril [LISINOPRIL] Allergy Unknown Swelling Verified 09/05/22 16:22 of Lip/Tongue/Throat Review of Systems Constitutional Constitutional: Reports system reviewed and no additional complaints, except as documented Musculoskeletal Musculoskeletal: Reports system reviewed and no additional complaints, except as documented Integumentary/Breasts Skin/Breast: Reports system reviewed and no additional complaints, except as documented Neurologic Neurologic: Reports system reviewed and no additional complaints, except as documented Hematologic/Lymphatic On Anticoagulants: No Patient History Medical History Acute sinusitis Aortic aneurysm Bacterial sinusitis CAD (coronary artery disease) Central sleep apnea Depression Dyslipidemia Footdrop (~2004) GERD (gastroesophageal reflux disease) Hypertension Nephrolithiasis (~1997) Obesity (BMI 30-39.9) Obstructive sleep apnea of adult Osteoarthritis Surgical History History of Nancy fundoplication History of shoulder surgery S/P lumbar microdiscectomy Social History 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 lives independently: Yes caregiver/support person: No housing: other (spends sainz in [place]) occupational status: other (retired) Previous occupational history: retired travel history: recurrent (They are snowbirds, spending sainz in [place], [place] in [facility]) Smoking Status: Never smoker alcohol intake: former substance use type: does not use Smoking Status: Never smoker alcohol intake frequency: holidays/special occasions only Substance Use Type: does not use Exam Initial Vital Signs Initial Vital Signs: Vital Signs Temperature 98.1 F 09/05/22 16:21 Pulse Rate 69 09/05/22 16:21 Respiratory Rate 18 09/05/22 16:21 Blood Pressure 158/74 H 09/05/22 16:21 Pulse Oximetry 99 09/05/22 16:21 Oxygen Delivery Method 09/05/22 16:21 HENMT Head: normal to inspection and normocephalic Resp Effort & Inspection: normal respiratory effort Auscultation: clear to auscultation bilaterally Cardio Rate: regular rate Pulses: radial pulses present on the left Skin General: no rashes or lesions noted Neuro Sensory Exam: no sensory deficits noted Extrem Other: Discomfort over the biceps tendon. Positive Neer test. He is difficulty with every other testing of his shoulder to include Payette and cross arm secondary to discomfort. Unsure if this is just because he is generalized discomfort in his year or if he is actually injured the rotator cuff/biceps tendon. Plan to be is for him to follow-up with his primary doctor. Given some time for his symptoms to improve. He was given return precautions follow-up instructions. He expressed understanding and agreement. Course Orders Ordered: ED Orders 09/05/22 16:20 XR shoulder LT min 2V Stat Discontinued Medications Tramadol HCl (Tramadol 50 Mg Tablet) 50 mg PO NOW ONE Stop: 09/05/22 17:44 Vital Signs Vital signs: Vital Signs - 8 hr 09/05/22 16:21 Temperature 98.1 F Pulse Rate 69 Respiratory Rate 18 Blood Pressure 158/74 H Pulse Oximetry 99 Oxygen Delivery Method Room Air Discharge Plan Departure Patient Disposition: Home Clinical Impression: Left shoulder pain Instructions: DI for Shoulder Sprain Activity Restrictions/Additional Instructions: I do recommend that you take the pain medication as needed. Contact your primary doctor tomorrow for follow-up. You can also take Tylenol/ibuprofen. You have no restrictions on the movement of your shoulder. I also recommend that you try to keep your shoulder lumbar by moving it as much as possible. You can use ice. Return to the emergency department for any new symptoms. Prescriptions: New tramadol 50 mg tablet 50 mg PO Q8H PRN (Reason: pain) Qty: 14 0RF No Action benzonatate 100 mg capsule 100 mg PO BID PRN (Reason: cough) Qty: 20 0RF ondansetron 4 mg tablet,disintegrating 4 mg PO BID PRN (Reason: nausea and vomiting) Qty: 14 0RF meclizine 25 mg tablet 25 mg PO BID PRN (Reason: motion sickness) Qty: 20 0RF Terazosin HCl (HYTRIN) 2 mg PO HS Qty: 0 ASPIRIN (#ASPIRIN) 81 mg PO Q DAY Qty: 0 metoprolol tartrate 50 MG tablet 50 mg PO BID Qty: 0 VITAMIN D (Vitamin D3) 1,000 unit PO QDAY Qty: 0 azithromycin 250 mg tablet See Rx Instructions .ROUTE .COMPLEX Qty: 6 0RF Rx Instructions: For 250 mg dose pack: take 500 mg today (day 1), then 250 mg for 4 days (days 2-5) codeine-guaifenesin 10-100 mg/5 mL liquid 10 ml PO Q6H PRN (Reason: cough) Qty: 120 0RF Rx Instructions: 5-10mL every 6 hours as needed for cough amoxicillin-pot clavulanate 875-125 mg tablet 1 tab PO BID Qty: 20 0RF naproxen sodium [Aleve] 220 mg Capsule 220 mg PO BID PRN (Reason: Pain (Scale Score 4-6)) rosuvastatin [Crestor] 20 mg tablet 20 mg PO DAILY tadalafil [Cialis] 5 mg tablet 5 mg PO DAILY PRN (Reason: not sure) Prilosec 10 mg susp,delayed release for recon 20 mg PO DAILY (DME) Resmed Aircurve BIPAP Qty: 1 Dose Instruction: As directed Label Comments: Pressure: IPAP 20 EPAP 8 DME: [facility] Rx Instructions: As directed
[2022-09-05] MEDS: TRAMADOL 50 MG TABLET PO (17:52)
== END 2022-09-05 17:59 | disposition home or self-care (01) ==
PROVIDERS: Emergency Provider Emergency Medicine; Family Provider Internal Medicine
DX: M25.512 Pain in left shoulder (principal); W18.30XA Fall on same level, unspecified, initial encounter
CPT/HCPCS: 73030; 99283

== ENCOUNTER → 2022-09-16 10:40 | Outpatient (CLI) | payer MEDICARE, OTHER, SELFPAY ==
--- NOTE | 2022-09-16 | DI.MRI.S_ITS ---
PROCEDURE: MR SHOULDER LT WO CON INDICATIONS: SPRAIN OF LEFT SHOULDER TECHNIQUE: Noncontrast oblique coronal T2 fast spin echo with fat saturation, oblique sagittal T1 spin echo and T2 fast spin echo with fat saturation, axial T1 spin echo and T2 fast spin echo with fat saturation through the shoulder. COMPARISON: None. FINDINGS: Image quality: Excellent. There are full-thickness tears of the supra and infraspinatus tendons with approximately 3 cm of tendon retraction. There is also some associated atrophy of the muscle bellies of the supra and infraspinatus suggesting longstanding tears. There is moderate tendinopathy involving the subscapularis tendon. Bicipital tendon remains within its normal position in the bicipital groove however it is thinned consistent with partial tearing. There is a tear involving the anterior glenoid labrum. There is a large shoulder joint effusion extending into the subacromial subdeltoid bursa. Moderate to severe AC joint degenerative changes present. Mild glenohumeral joint degenerative changes noted. IMPRESSION: 1. Full-thickness tears of the supra and infraspinatus tendon with approximately 3 cm of tendon retraction 2. Long of the biceps tendon is thinned within the bicipital groove consistent with partial tearing however remains intact. 3. Tear involving the anterior glenoid labrum. 4. Large shoulder joint effusion extending into the subacromial subdeltoid bursa. 5. Moderate to severe AC joint degenerative change. 6. Mild glenohumeral joint degenerative change. 7. Moderate tendinopathy of the subscapularis tendon. Dictated by: Alek Julian M.D. on 09/16/2022 at 11:45 Approved by: Alek Julian M.D. on 09/16/2022 at 12:11
== END ==
PROVIDERS: Family Provider Internal Medicine; PCP Physician Assistant; Referring Provider Orthopaedic Surgery; Visit Provider Orthopaedic Surgery
DX: S46.012A Strain of muscle(s) and tendon(s) of the rotator cuff of left shoulder, initial encounter (principal); S43.492A Other sprain of left shoulder joint, initial encounter; M25.412 Effusion, left shoulder; X58.XXXA Exposure to other specified factors, initial encounter
CPT/HCPCS: 73221

== ENCOUNTER 2022-11-24 12:15 | Emergency (ER) | payer MEDICARE, OTHER, SELFPAY ==
[2022-11-24 12:23] VITALS: BP 179/93; PULSE 74; RESP 12; TEMP 37; O2SAT 97; BMI 65.7
--- NOTE | 2022-11-24 12:33 | ED.BACK ---
HPI - Back Pain/Injury <Sai Menendez PA-C - Last Filed: 11/24/22 12:42> General Chief Complaint: Back Pain/Injury Stated Complaint: Lower back pain Time Seen by Provider: 11/24/22 12:26 History of Present Illness HPI Narrative: This is a 77-year-old male presents to the emergency department complaining of right lumbar pain onset yesterday after lifting an object up. He denies any urinary or bowel incontinence, saddle paresthesias, fevers, nausea, abdominal pain, or any other concerning signs or symptoms. The pain is worse with movement. The pain does not radiate anywhere else other than the right lumbar area. Related Data Home Medications Medication Instructions Recorded Confirmed ASPIRIN (#ASPIRIN) 81 mg PO Q DAY ##0 04/26/11 11/09/22 Terazosin HCl (HYTRIN) 2 mg PO HS ##0 04/26/11 11/09/22 VITAMIN D (Vitamin D3) 1,000 unit PO QDAY ##0 04/26/11 11/09/22 metoprolol tartrate 50 mg tablet 50 mg PO BID ##0 04/26/11 11/09/22 omeprazole magnesium 10 mg oral 20 mg PO DAILY 02/15/19 11/09/22 suspension,delayed release (Prilosec) rosuvastatin 20 mg tablet (Crestor) 20 mg PO DAILY 02/15/19 11/09/22 tadalafil 5 mg tablet (Cialis) 5 mg PO DAILY PRN not sure 02/15/19 11/09/22 Resmed Aircurve BIPAP #1 ea 02/18/19 11/09/22 naproxen sodium 220 mg capsule 220 mg PO BID PRN Pain (Scale 04/03/19 11/09/22 (Aleve) Score 4-6) nitroglycerin 0.4 mg sublingual 0.4 mg sublingual Q5M PRN 10/24/22 11/09/22 tablet venlafaxine 150 mg 150 mg PO DAILY 10/24/22 11/09/22 capsule,extended release 24 hr Previous Rx's Medication Instructions Recorded meclizine 25 mg tablet 25 mg PO BID PRN motion sickness 09/11/19 #20 tabs Allergies Allergy/AdvReac Type Severity Reaction Status Date / Time lisinopril [LISINOPRIL] Allergy Unknown Swelling Verified 11/24/22 12:26 of Lip/Tongue/Throat Review of Systems <Sai Menendez PA-C - Last Filed: 11/24/22 12:42> Review of Systems Narrative: GENERAL: Denies chills, fatigue, malaise, fever, sweats. HEENT: Denies sinus pain, ear pain, sore throat, difficulty swallowing, dizziness. RESPIRATORY: Denies dyspnea, cough, wheezing, hemoptysis, sputum. CARDIOVASCULAR: Denies chest pain, palpitations, orthopnea, edema, GASTROINTESTINAL: Denies nausea, vomiting, abdominal pain, diarrhea, constipation, melena. : Denies dysuria, frequency, incontinence, hematuria, urinary retention. MUSCULOSKELETAL: Right-sided lumbar pain SKIN: Denies rash, skin lesions, or other NEUROLOGIC: Denies weakness, headache, numbness, change in speech, confusion, seizures, incoordination. PSYCHIATRIC: No concerning psychosocial issues. 12 point review of systems is negative except for those stated above Patient History <Sai Menendez PA-C - Last Filed: 11/24/22 12:42> Medical History (Updated 11/24/22 @ 12:39 by Sai Menendez PA-C) Acute sinusitis Aortic aneurysm Arthritis Bacterial sinusitis CAD (coronary artery disease) Cancer of prostate Central sleep apnea Depression Dyslipidemia Footdrop (~2004) GERD (gastroesophageal reflux disease) Hypertension Lower urinary tract symptoms Nephrolithiasis (~1997) Obesity (BMI 30-39.9) Obstructive sleep apnea of adult Osteoarthritis Surgical History History of Nancy fundoplication History of shoulder surgery S/P lumbar microdiscectomy Family History Father Hyperlipidemia Hypertension Social History 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 HEAD: Atraumatic. Normocephalic. EYES: Pupils equal round and reactive. Extraocular motions intact. No scleral icterus. No injection or drainage. ENT: Nose without bleeding, purulent drainage. Throat without erythema, tonsillar hypertrophy or exudate. Airway patent. NECK: Trachea midline. Non tender GASTROINTESTINAL: Abdomen soft, non-tender, nondistended. EXTREMITIES: No edema or joint tenderness. BACK: Tenderness to palpation to the right lumbar paraspinal muscles. No lumbar midline tenderness. NEURO: AOx3. SKIN: No rash or erythema of visible areas Initial Vital Signs Initial Vital Signs: Vital Signs Temperature 98.6 F 11/24/22 12:23 Pulse Rate 74 11/24/22 12:23 Respiratory Rate 12 11/24/22 12:23 Blood Pressure 179/93 H 11/24/22 12:23 Pulse Oximetry 97 11/24/22 12:23 Oxygen Delivery Method 11/24/22 12:23 <DO Fawn Leal Last Filed: 11/25/22 06:54> Initial Vital Signs Initial Vital Signs: Vital Signs Temperature 98.6 F 11/24/22 12:23 Pulse Rate 74 11/24/22 12:23 Respiratory Rate 12 11/24/22 12:23 Blood Pressure 179/93 H 11/24/22 12:23 Pulse Oximetry 97 11/24/22 12:23 Oxygen Delivery Method 11/24/22 12:23 Course <Sai Menendez PA-C - Last Filed: 11/24/22 12:42> Orders Ordered: Discontinued Medications Ketorolac Tromethamine (Ketorolac 30 Mg/Ml Vial) 15 mg IM NOW ONE Stop: 11/24/22 12:34 Last Admin: 11/24/22 12:41 Dose: 15 mg Documented By: MALORIE Vital Signs Vital signs: Vital Signs - 8 hr 11/24/22 12:23 Temperature 98.6 F Pulse Rate 74 Respiratory Rate 12 Blood Pressure 179/93 H Pulse Oximetry 97 Oxygen Delivery Method Room Air <Natali Antoine DO - Last Filed: 11/25/22 06:54> Orders Ordered: Discontinued Medications Ketorolac Tromethamine (Ketorolac 30 Mg/Ml Vial) 15 mg IM NOW ONE Stop: 11/24/22 12:34 Last Admin: 11/24/22 12:41 Dose: 15 mg Documented By: MALORIE Vital Signs Vital signs: Vital Signs - 8 hr 11/24/22 12:23 Temperature 98.6 F Pulse Rate 74 Respiratory Rate 12 Blood Pressure 179/93 H Pulse Oximetry 97 Oxygen Delivery Method Room Air MDM - Back Pain/Injury <Sai Menendez PA-C - Last Filed: 11/24/22 12:42> MDM Narrative Medical decision making narrative: MDM * differential diagnosis includes but not limited to lumbar strain, kidney stone, vertebral fracture, spinal cord compromise * Prior records reviewed: Patient has not been here for similar symptoms in the past * My lab interpretation: None obtained * My imgaing interpretation: None obtained * Clinical Decision Rules/Scores evaluated: None * Independent discussions with: None ED Course: This is a 77-year-old male presents to the emergency department due to a suspected right-sided lumbar strain. No midline tenderness in the very low concern for any kind of vertebral fracture. Patient does not report any red flag symptoms such as fevers, weakness, numbness, urinary or bowel incontinence, or any other symptoms concerning for any kind of spinal cord compromise. IM Toradol given today in the emergency department. No muscle relaxants prescribed do the age. Recommended conservative measures to treat this suspected muscular injury. Shared Decision Making: Discussed plan with patient who is comfortable with this plan Social Considerations: None Disposition: Discharged to home Discharge Plan Departure Patient Disposition: Home Clinical Impression: Strain of lumbar region Instructions: DI for Low Back Pain Activity Restrictions/Additional Instructions: Thank you for coming to the [facility] Emergency Department today. As discussed suspect you have a lumbar muscle strain. You have no midline tenderness and not concerned with any kind of vertebral fracture. If the pain continues I recommend you reach out to the spinal surgeon that you have seen previously for further evaluation. You may also speak to your primary care provider for further imaging if the pain continues. I recommend light stretching and movement, lidocaine patches, as well as warm compresses to the area. Please remember to keep moving so your muscles do not ?stiffened up?. Please read the attached instructions for further ways to treat your pain. I hope you feel better soon. Prescriptions: No Action meclizine 25 mg tablet 25 mg PO BID PRN (Reason: motion sickness) Qty: 20 0RF Terazosin HCl (HYTRIN) 2 mg PO HS Qty: 0 ASPIRIN (#ASPIRIN) 81 mg PO Q DAY Qty: 0 metoprolol tartrate 50 MG tablet 50 mg PO BID Qty: 0 VITAMIN D (Vitamin D3) 1,000 unit PO QDAY Qty: 0 naproxen sodium [Aleve] 220 mg Capsule 220 mg PO BID PRN (Reason: Pain (Scale Score 4-6)) rosuvastatin [Crestor] 20 mg tablet 20 mg PO DAILY tadalafil [Cialis] 5 mg tablet 5 mg PO DAILY PRN (Reason: not sure) Prilosec 10 mg susp,delayed release for recon 20 mg PO DAILY (DME) Resmed Aircurve BIPAP Qty: 1 Dose Instruction: As directed Label Comments: Pressure: IPAP 20 EPAP 8 DME: [facility] Rx Instructions: As directed venlafaxine 150 mg capsule,extended release 24hr 150 mg PO DAILY nitroglycerin 0.4 mg tablet, sublingual 0.4 mg sublingual Q5M PRN Rx Instructions: do not exceed 3 doses per episode Referrals: Alisha Zurita PA-C [Primary Care Provider] - Stand Alone Forms: Patient Portal/API <Natali Antoine DO - Last Filed: 11/25/22 06:54> Cosign ED Attending Kyle Attestation: I was immediately available in the department for consultation. Documentation has been reviewed.
--- NOTE | 2022-11-24 12:38 | PC.NURSE ---
Patient reports no injury or trauma but noted right lower back pain after going to bathroom. Denies any urinary or bowel issues. Pinpoint tenderness to right lower back. No tenderness upon palpation of the spine. Pain worse with movement and ambulation. Currently being worked up for prostate cancer.
[2022-11-24] MEDS: KETOROLAC 30 MG/ML VIAL 15 MG IM (12:41)
[2022-11-24 13:04] VITALS: BP 123/73; PULSE 60; RESP 18; O2SAT 99
== END 2022-11-24 13:05 | disposition home or self-care (01) ==
PROVIDERS: Emergency Provider Physician Assistant Medical; Family Provider Internal Medicine; PCP Physician Assistant
DX: S39.012A Strain of muscle, fascia and tendon of lower back, initial encounter (principal); X50.0XXA Overexertion from strenuous movement or load, initial encounter
CPT/HCPCS: 96372; 99283; J1885

== ENCOUNTER → 2022-12-30 15:00 | Outpatient (CLI) | payer MEDICARE, OTHER, SELFPAY ==
[2022-12-30 16:32] LABS: Prostate Specific Antigen 13.5 ng/mL (0.10-4.00)
== END ==
PROVIDERS: Family Provider Internal Medicine; PCP Physician Assistant; Referring Provider Urology; Visit Provider Urology
DX: C61 Malignant neoplasm of prostate (principal); R39.9 Unspecified symptoms and signs involving the genitourinary system
CPT/HCPCS: 36415; 84153

== ENCOUNTER → 2023-02-03 13:49 | Outpatient (CLI) | payer MEDICARE, OTHER, SELFPAY ==
[2023-02-03 14:14] LABS: Bilirubin Urine UA NEGATIVE (NEGATIVE); Glucose Urine UA TRACE g/dL (Negative); Ketones Urine UA TRACE (NEGATIVE); Leukocyte Esterase Urine UA NEGATIVE (NEGATIVE); Nitrite Urine UA POSITIVE (Negative); Occult Blood Urine UA TRACE-INTACT (Negative); Protein Urine UA 2+ (Negative); pH Urine UA 6.5 (4.5-8.0)
[2023-02-03 14:22] LABS: Color Urine UA Amber
[2023-02-03 14:23] LABS: Amorphous Sediment Urine 1+; Appearance Urine UA Slightly Cloudy; Bacteria Urine Occasional (0-1); RBC Urine 0-1/HPF (0-5/HPF); Squamous Epithelial Cell Urine 0-1 /HPF (0-5/HPF); WBC Urine 1-5/HPF (0-5/HPF)
[2023-02-03 14:24] LABS: Culture Indicated Urine Specimen Cultured
== END ==
PROVIDERS: Family Provider Internal Medicine; PCP Physician Assistant; Referring Provider Radiology Radiation Oncology; Visit Provider Radiology Radiation Oncology
DX: C61 Malignant neoplasm of prostate (principal); R30.0 Dysuria
CPT/HCPCS: 81001; 87086

== ENCOUNTER → 2023-04-26 08:22 | Outpatient (CLI) | payer MEDICARE, OTHER, SELFPAY ==
[2023-04-26 10:44] LABS: Prostate Specific Antigen 1.84 ng/mL (0.10-4.00)
[2023-05-03 09:59] LABS: Testosterone % Fr + Wkly bound 18.4 % (9.0-46.0); Testosterone Fr+Wkly bound 47.5 ng/dL (40.0-250.0); Testosterone, Total 258.1 ng/dL (264.0-916.0)
== END ==
PROVIDERS: Family Provider Internal Medicine; PCP Physician Assistant; Referring Provider Urology; Visit Provider Urology
DX: C61 Malignant neoplasm of prostate (principal); R39.9 Unspecified symptoms and signs involving the genitourinary system; N52.9 Male erectile dysfunction, unspecified; R68.82 Decreased libido
CPT/HCPCS: 36415; 84153; 84403

== ENCOUNTER → 2023-05-03 08:18 | Outpatient (CLI) | payer MEDICARE, OTHER, SELFPAY ==
[2023-05-10 13:33] LABS: Testosterone % Fr + Wkly bound 22.7 % (9.0-46.0); Testosterone Fr+Wkly bound 74.8 ng/dL (40.0-250.0); Testosterone, Total 329.5 ng/dL (264.0-916.0)
== END ==
PROVIDERS: Family Provider Internal Medicine; PCP Physician Assistant; Referring Provider Urology; Visit Provider Urology
DX: C61 Malignant neoplasm of prostate (principal); N52.9 Male erectile dysfunction, unspecified; R39.9 Unspecified symptoms and signs involving the genitourinary system; R68.82 Decreased libido
CPT/HCPCS: 36415; 84403

== ENCOUNTER → 2023-05-17 08:04 | Outpatient (CLI) | payer MEDICARE, OTHER, SELFPAY ==
[2023-05-17 10:06] LABS: Alanine Aminotransferase 23 IU/L (<50); Albumin Globulin Ratio 1.7 (1.0-2.8); Alkaline Phosphatase 47 U/L (38-126); Aspartate Aminotransferase 25 IU/L (17-59); BUN Creatinine Ratio 15.3 (6-22); Bilirubin Total 0.7 mg/dL (0.2-1.3); Blood Urea Nitrogen 11 mg/dL (9-20); Calcium 8.6 mg/dL (8.4-10.2); Carbon Dioxide 25 mmol/L (22-32); Chloride 98 mmol/L (98-107); Estimated Glomerular Filt Rate > 60 mL/min (>60); Globulin 2.3 g/dL (1.7-4.1); Glucose 101 mg/dL (80-110); HEMOLYSIS < 15 (0-50); Magnesium 1.8 mg/dL (1.6-2.3); Potassium 3.7 mmol/L (3.4-5.1); Sodium 134 mmol/L (137-145); Total Protein 6.3 g/dL (6.3-8.2)
[2023-05-19 13:01] LABS: Cholesterol, Total 106 mg/dL (100-199); HDL-Cholesterol 33 mg/dL (>39); HDL-Particle (Total) 27.9 umol/L (>=30.5); Historical Reading Comment: (.); LDL Particle 775 nmol/L (<1000); LDL Size 19.9 nm (>20.5); LDL-Cholsterol 51 mg/dL (0-99); LP-IR Score 65 (<=45); Small LDL- Particle 592 nmol/L (<=527); Triglycerides 119 mg/dL (0-149)
[2023-05-23 08:54] LABS: Testosterone Fr+Wkly bound 37.6 ng/dL (40.0-250.0); Testosterone, Total 289.6 ng/dL (264.0-916.0)
== END ==
PROVIDERS: Urology; Family Provider Internal Medicine; PCP Physician Assistant; Referring Provider Radiology Radiation Oncology; Visit Provider Radiology Radiation Oncology
DX: I10 Essential (primary) hypertension (principal); N52.8 Other male erectile dysfunction; C61 Malignant neoplasm of prostate; R39.9 Unspecified symptoms and signs involving the genitourinary system; R68.82 Decreased libido
CPT/HCPCS: 36415; 80053; 80061; 83704; 83735; 84403

== ENCOUNTER 2023-07-01 10:48 | Emergency (ER) | payer MEDICARE, OTHER, SELFPAY ==
[2023-07-01] VITALS (18 sets, daily range): BP systolic 160–214; BP diastolic 77–99; PULSE 56–76; RESP 18; TEMP 36.7; O2SAT 93–99; BMI 30.7
--- NOTE | 2023-07-01 11:00 | DI.RAD.S_ITS ---
PROCEDURE: XR CHEST 1V INDICATIONS: weakness, fatigue TECHNIQUE: One view of the chest was acquired. COMPARISON: [facility], CR, XR CHEST 2V, 07/25/2022, 10:56. [facility], CR, XR CHEST 2V, 07/22/2022, 12:36. FINDINGS: Surgical changes and devices: None. Lungs and pleura: Low lung volumes. No consolidation. No pleural effusion. Mediastinum: Mediastinal contours appear normal. Heart size is normal. Bones and chest wall: No suspicious bony lesions. Overlying soft tissues appear unremarkable. IMPRESSION: No acute radiographic abnormality on this one view radiograph with low lung volumes. Dictated by: Haroldo Martin M.D. on 07/01/2023 at 11:49 Approved by: Haroldo Martin M.D. on 07/01/2023 at 11:50
--- NOTE | 2023-07-01 11:04 | ED_ITS ---
HPI - Weakness General Chief complaint: Weakness Stated complaint: nausea, tired, poss dehydrated Time Seen by Provider: 07/01/23 10:51 Source: patient and family Mode of arrival: Ambulatory History of Present Illness HPI Narrative: 78M nonsmoker with history of prostate cancer presents with his in the chief complaint of feeling generally fatigued with some nausea over the past week or so. He states his symptoms started [place] He states that he likely did not eat and drink as much as he normally would. He feels a bit dizzy upon standing it with improvement upon sitting. He denies any chest pain or shortness of breath. He is nauseated but denies much in the way of vomiting. He denies abdominal pain, diarrhea, constipation, dysuria, frequency or urgency. He denies any change in medications or diet Related Data Home Medications Medication Instructions Recorded Confirmed ASPIRIN (#ASPIRIN) 81 mg PO Q DAY ##0 04/26/11 06/14/23 Terazosin HCl (HYTRIN) 2 mg PO HS ##0 04/26/11 06/14/23 VITAMIN D (Vitamin D3) 1,000 unit PO QDAY ##0 04/26/11 06/14/23 metoprolol tartrate 50 mg tablet 50 mg PO BID ##0 04/26/11 06/14/23 omeprazole magnesium 10 mg oral 20 mg PO DAILY 02/15/19 06/14/23 suspension,delayed release (Prilosec) rosuvastatin 20 mg tablet (Crestor) 20 mg PO DAILY 02/15/19 06/14/23 tadalafil 5 mg tablet (Cialis) 5 mg PO DAILY PRN not sure 02/15/19 06/14/23 Resmed Aircurve BIPAP #1 ea 02/18/19 06/14/23 naproxen sodium 220 mg capsule 220 mg PO BID PRN Pain (Scale 04/03/19 06/14/23 (Aleve) Score 4-6) nitroglycerin 0.4 mg sublingual 0.4 mg sublingual Q5M PRN 10/24/22 06/14/23 tablet venlafaxine 150 mg 150 mg PO DAILY 10/24/22 06/14/23 capsule,extended release 24 hr Previous Rx's Medication Instructions Recorded meclizine 25 mg tablet 25 mg PO BID PRN motion sickness 09/11/19 #20 tabs meclizine 25 mg tablet 25 mg PO BID PRN dizziness #14 tabs 04/29/23 ondansetron HCl 4 mg tablet 4 mg PO Q8H PRN nausea and 04/29/23 vomiting #14 tabs Allergies Allergy/AdvReac Type Severity Reaction Status Date / Time lisinopril [LISINOPRIL] Allergy Unknown Swelling Verified 07/01/23 11:03 of Lip/Tongue/Throat Review of Systems Review of Systems Narrative: GENERAL: See HPI HEENT: Denies sinus pain, ear pain, sore throat, difficulty swallowing, dizzin ess. RESPIRATORY: Denies dyspnea, cough, wheezing, hemoptysis, sputum. CARDIOVASCULAR: Denies chest pain, palpitations, orthopnea, edema, GASTROINTESTINAL: Denies nausea, vomiting, abdominal pain, diarrhea, constipation, melena. : Denies dysuria, frequency, incontinence, hematuria, urinary retention. MUSCULOSKELETAL: denies weakness, joint pain, or bony pain SKIN: Denies rash, skin lesions, or other NEUROLOGIC: Denies weakness, headache, numbness, change in speech, confusion, seizures, incoordination. PSYCHIATRIC: No concerning psychosocial issues. 12 point review of systems is negative except for those stated above Patient History Medical History Acute sinusitis Aortic aneurysm Arthritis Bacterial sinusitis CAD (coronary artery disease) Cancer of prostate Central sleep apnea Decreased libido Depression Dyslipidemia Erectile dysfunction [place] (~2004) GERD (gastroesophageal reflux disease) History of kidney stones Hypertension Lower urinary tract symptoms Nephrolithiasis (~1997) Obesity (BMI 30-39.9) Obstructive sleep apnea of adult Osteoarthritis Surgical History History of Nancy fundoplication History of shoulder surgery S/P lumbar microdiscectomy Family History Father Hyperlipidemia Hypertension Social History marital status: details: 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 Well-developed patient, in mild distress. HEAD: Atraumatic. Normocephalic. EYES: Pupils equal round and reactive. Extraocular motions intact. No scleral icterus. No injection or drainage. ENT: Dry mucous membranes Nose without bleeding, purulent drainage. Throat without erythema, tonsillar hypertrophy or exudate. Airway patent. NECK: Trachea midline. Non tender CARDIOVASCULAR: Regular rate and rhythm without murmurs, gallops, or rubs. RESPIRATORY: Clear to auscultation. Breath sounds equal bilaterally. No wheezes, rales, or rhonchi. GASTROINTESTINAL: Abdomen soft, non-tender, nondistended. EXTREMITIES: No edema or joint tenderness. BACK: Nontender without deformity or crepitance. No flank tenderness. NEURO: AOx3. SKIN: Poor skin turgor No rash or erythema of visible areas Initial Vital Signs Initial Vital Signs: Vital Signs Temperature 98.1 F 07/01/23 10:50 Pulse Rate 74 07/01/23 10:50 Respiratory Rate 18 07/01/23 10:50 Blood Pressure 214/99 H 07/01/23 10:50 Pulse Oximetry 99 07/01/23 10:50 Oxygen Delivery Method Room Air 07/01/23 10:50 Course Orders Ordered: ED Orders 07/01/23 10:55 COVID19 -Nasal RAPID Stat 07/01/23 11:00 Chest [XR chest 1V] Stat EKG-12 Lead Stat 07/01/23 11:05 Complete Blood Count AUTO DIFF Stat Comprehensive Metabolic Panel Stat Lipase Stat Magnesium Stat Troponin & CK Cardiac Panel Stat Discontinued Medications Sodium Chloride (Normal Saline 0.9%) 1,000 mls @ 1,000 mls/hr IV BOLUS ONE Stop: 07/01/23 11:57 Last Infusion: 07/01/23 12:07 Dose: 0 mls/hr Documented By: Admin: 07/01/23 11:19 Dose: 1,000 mls/hr Documented By: DESI Sodium Chloride (Normal Saline 0.9%) 500 mls @ 1,000 mls/hr IV BOLUS ONE Stop: 07/01/23 13:18 Last Infusion: 07/01/23 15:29 Dose: 0 mls/hr Documented By: Admin: 07/01/23 13:06 Dose: 1,000 mls/hr Documented By: DESI Ondansetron HCl (Ondansetron 4 Mg/2 Ml Inj) 4 mg IV NOW ONE Stop: 07/01/23 11:30 Last Admin: 07/01/23 11:33 Dose: 4 mg Documented By: DESI Pantoprazole Sodium (Pantoprazole 40 Mg Vial) 40 mg IV NOW ONE Stop: 07/01/23 12:50 Last Admin: 07/01/23 13:06 Dose: 40 mg Documented By: DESI Vital Signs Vital signs: Vital Signs - 8 hr 07/01/23 11:30 07/01/23 11:31 07/01/23 11:31 Pulse Rate 62 60 Pulse Rate [Orthostatic Lying] Pulse Rate [Orthostatic Sitting] Pulse Rate [Orthostatic Standing] Respiratory Rate Blood Pressure 165/80 H Blood Pressure [Orthostatic Lying] Blood Pressure [Orthostatic Sitting] Blood Pressure [Orthostatic Standing] Pulse Oximetry 98 97 Oxygen Delivery Method Room Air 07/01/23 12:14 07/01/23 12:00 07/01/23 12:00 Pulse Rate 59 L Pulse Rate [Orthostatic Lying] 58 L Pulse Rate [Orthostatic Sitting] 63 Pulse Rate [Orthostatic Standing] 69 Respiratory Rate Blood Pressure 163/79 H Blood Pressure [Orthostatic Lying] 162/92 H Blood Pressure [Orthostatic Sitting] 162/84 H Blood Pressure [Orthostatic Standing] 167/92 H Pulse Oximetry 99 Oxygen Delivery Method 07/01/23 12:07 07/01/23 12:07 07/01/23 12:10 Pulse Rate 59 L 61 Pulse Rate [Orthostatic Lying] Pulse Rate [Orthostatic Sitting] Pulse Rate [Orthostatic Standing] Respiratory Rate Blood Pressure 162/85 H Blood Pressure [Orthostatic Lying] Blood Pressure [Orthostatic Sitting] Blood Pressure [Orthostatic Standing] Pulse Oximetry 99 99 Oxygen Delivery Method 07/01/23 12:10 07/01/23 12:12 07/01/23 12:12 Pulse Rate 69 Pulse Rate [Orthostatic Lying] Pulse Rate [Orthostatic Sitting] Pulse Rate [Orthostatic Standing] Respiratory Rate Blood Pressure 162/84 H 167/92 H Blood Pressure [Orthostatic Lying] Blood Pressure [Orthostatic Sitting] Blood Pressure [Orthostatic Standing] Pulse Oximetry 97 Oxygen Delivery Method 07/01/23 12:30 07/01/23 13:00 07/01/23 13:30 Pulse Rate 58 L 59 L 56 L Pulse Rate [Orthostatic Lying] Pulse Rate [Orthostatic Sitting] Pulse Rate [Orthostatic Standing] Respiratory Rate Blood Pressure Blood Pressure [Orthostatic Lying] Blood Pressure [Orthostatic Sitting] Blood Pressure [Orthostatic Standing] Pulse Oximetry 97 98 98 Oxygen Delivery Method 07/01/23 13:31 07/01/23 13:31 07/01/23 15:30 Pulse Rate 57 L 61 Pulse Rate [Orthostatic Lying] Pulse Rate [Orthostatic Sitting] Pulse Rate [Orthostatic Standing] Respiratory Rate 18 Blood Pressure 160/77 H 178/85 H Blood Pressure [Orthostatic Lying] Blood Pressure [Orthostatic Sitting] Blood Pressure [Orthostatic Standing] Pulse Oximetry 98 98 Oxygen Delivery Method Room Air 07/01/23 15:24 07/01/23 15:25 07/01/23 15:25 Pulse Rate 68 61 Pulse Rate [Orthostatic Lying] Pulse Rate [Orthostatic Sitting] Pulse Rate [Orthostatic Standing] Respiratory Rate Blood Pressure 178/85 H Blood Pressure [Orthostatic Lying] Blood Pressure [Orthostatic Sitting] Blood Pressure [Orthostatic Standing] Pulse Oximetry 98 99 Oxygen Delivery Method MDM - Weakness Lab Data 07/01/23 11:05 07/01/23 11:05 Labs: Lab Results 07/01/23 07/01/23 07/01/23 Range/Units 10:55 11:05 11:05 WBC 5.1 (4.5-11.0) X10^3/uL RBC 4.08 L (4.5-5.9) X10^6/uL Hgb 13.3 L (13.5-17.5) g/dL Hct 37.9 L (41-53) % MCV 92.8 (80-100) fL MCH 32.5 (26-34) PG MCHC 35.1 (30-36) % RDW 13.7 (11.6-14.8) % Plt Count 173 (150-400) X10^3/uL Neut % (Auto) 70.9 (50-75) % Lymph % (Auto) 18.1 L (25-40) % [place] % (Auto) 7.9 (3-14) % Eos % (Auto) 2.4 (2-4) % Baso % (Auto) 0.7 (0-2) % Neut # (Auto) 3600 (9508-9575) /uL Lymph # (Auto) 900 L (0060-0783) /uL [place] # (Auto) 400 (0-900) /uL Eos # (Auto) 100 (0-450) /uL Baso # (Auto) 0 (0-100) /uL Sodium 136 L (137-145) mmol/L Potassium 3.5 (3.4-5.1) mmol/L Chloride 101 (98-107) mmol/L Carbon Dioxide 27 (22-32) mmol/L BUN 11 (9-20) mg/dL Creatinine 0.70 (0.66-1.25) mg/dL Estimated GFR > 60 (>60) mL/min BUN/Creatinine Ratio 15.7 (6-22) Glucose 124 H (80-110) mg/dL Calcium 9.4 (8.4-10.2) mg/dL Magnesium 1.9 (1.6-2.3) mg/dL Total Bilirubin 0.9 (0.2-1.3) mg/dL AST 27 (17-59) IU/L ALT 25 (<50) IU/L Alkaline Phosphatase 52 (38-126) U/L Total Creatine Kinase 259 H (55-170) U/L Troponin I < 0.012 (0.01-0.034) ng/mL Total Protein 7.1 (6.3-8.2) g/dL Albumin 4.2 (3.5-5.0) g/dL Globulin 2.9 (1.7-4.1) g/dL Albumin/Globulin Ratio 1.4 (1.0-2.8) Lipase 51 (23-300) U/L SARS-CoV-2 (PCR) Negative (Negative) Urine Dip Bedside Urine Glucose Negative Bedside Urine Bilirubin - Negative Bedside Urine Ketone - Negative Urine Specific [place] 1.010 Bedside Urine Occult Blood +/- Bedside Urine pH 7.0 Bedside Urine Protein - Negative Bedside Urine Urobilinogen - Negative Bedside Urine Nitrite - Negative Bedside Urine Leukocytes - Negative Esterase Critical Care Time Critical Care Time Attestation: [78] year old patient presents with generalized fatigue and some lightheadedness upon standing Multiple etiologies for patient's symptoms considered including, but not limited to: [Dehydration versus infectious process versus electrolyte abnormality versus cardiac versus other] Prior Charts reviewed in our EMR Primary Historian: patient Labs reviewed and interpreted by myself: No leukocytosis or left shift, no anemia, Imaging reviewed: No acute radiographic abnormality Patient's symptoms improved over duration of stay with above-stated therapies. Findings and discharge diagnosis discussed with patient/family followed by verbalization of understanding Return precautions discussed with patient/family whom verbalize understanding of diagnosis and plan Discharge Plan Departure Patient Disposition: Home Clinical Impression: Acute dehydration, Fatigue Instructions: DI for Dehydration -- Adult Activity Restrictions/Additional Instructions: *You have been diagnosed with [ weakness, generalized fatigue and dehydration. ] *What to do: *Please continue to take your regular medications as directed. [ ] New medication prescriptions sent to your pharmacy: [ ] [x ] New medication written as a paper prescription [ ] No new medications given *Please follow up with your primary care provider in 2-3 days, call for an appointment. Let them know you were seen in the Emergency Department and that we ask that you be seen in follow up. We will electronically transmit a record of today's note if your PCP is in our system * As we discussed the most appropriate steps moving forward are to listen to your . Doctor's orders. *Return to Emergency Department if you should have any new, worsening or concern ing symptoms, such as [fever greater than 101 F, shaking chills, worsening pain, persistent vomiting or other bothersome symptoms] Prescriptions: No Action meclizine 25 mg tablet 25 mg PO BID PRN (Reason: dizziness) Qty: 14 0RF ondansetron HCl 4 mg tablet 4 mg PO Q8H PRN (Reason: nausea and vomiting) Qty: 14 0RF meclizine 25 mg tablet 25 mg PO BID PRN (Reason: motion sickness) Qty: 20 0RF Terazosin HCl (HYTRIN) 2 mg PO HS Qty: 0 ASPIRIN (#ASPIRIN) 81 mg PO Q DAY Qty: 0 metoprolol tartrate 50 MG tablet 50 mg PO BID Qty: 0 VITAMIN D (Vitamin D3) 1,000 unit PO QDAY Qty: 0 naproxen sodium [Aleve] 220 mg Capsule 220 mg PO BID PRN (Reason: Pain (Scale Score 4-6)) rosuvastatin [Crestor] 20 mg tablet 20 mg PO DAILY tadalafil [Cialis] 5 mg tablet 5 mg PO DAILY PRN (Reason: not sure) Prilosec 10 mg susp,delayed release for recon 20 mg PO DAILY (DME) Resmed Aircurve BIPAP Qty: 1 Dose Instruction: As directed Patient Comments: Pressure: IPAP 20 EPAP 8 DME: [facility] Rx Instructions: As directed venlafaxine 150 mg capsule,extended release 24hr 150 mg PO DAILY nitroglycerin 0.4 mg tablet, sublingual 0.4 mg sublingual Q5M PRN Rx Instructions: do not exceed 3 doses per episode Referrals: Angelia Molina PA-C [Primary Care Provider] - Stand Alone Forms: Patient Portal/API
[2023-07-01 11:19] LABS: Add Manual Diff / Slide Review NO; Basophils Absolute Auto 0 /uL (0-100); Basophils Percent Auto 0.7 % (0-2); Eosinophils Absolute Auto 100 /uL (0-450); Eosinophils Percent Auto 2.4 % (2-4); Hematocrit 37.9 % (41-53); Hemoglobin 13.3 g/dL (13.5-17.5); Lymphocytes Absolute Auto 900 /uL (1100-4500); Lymphocytes Percent Auto 18.1 % (25-40); Mean Corpuscular HGB Conc 35.1 % (30-36); Mean Corpuscular Hemoglobin 32.5 PG (26-34); Mean Corpuscular Volume 92.8 fL (80-100); Monocytes Absolute Auto 400 /uL (0-900); Monocytes Percent Auto 7.9 % (3-14); Neutrophils Absolute Auto 3600 /uL (1500-7000); Neutrophils Percent Auto 70.9 % (50-75); Platelet Count 173 X10^3/uL (150-400); Red Blood Cell Count 4.08 X10^6/uL (4.5-5.9); Red Cell Distribution Width 13.7 % (11.6-14.8); White Blood Cell Count 5.1 X10^3/uL (4.5-11.0)
[2023-07-01] MEDS: SODIUM CHLORIDE 0.9% 1,000 ML 1000 ML IV (11:19)
[2023-07-01 11:22] LABS: COVID19 -Nasal RAPID Negative (Negative)
[2023-07-01 11:32] LABS: Alanine Aminotransferase 25 IU/L (<50); Albumin 4.2 g/dL (3.5-5.0); Albumin Globulin Ratio 1.4 (1.0-2.8); Alkaline Phosphatase 52 U/L (38-126); Aspartate Aminotransferase 27 IU/L (17-59); BUN Creatinine Ratio 15.7 (6-22); Bilirubin Total 0.9 mg/dL (0.2-1.3); Blood Urea Nitrogen 11 mg/dL (9-20); Calcium 9.4 mg/dL (8.4-10.2); Carbon Dioxide 27 mmol/L (22-32); Chloride 101 mmol/L (98-107); Creatine Kinase 259 U/L (55-170); Estimated Glomerular Filt Rate > 60 mL/min (>60); Globulin 2.9 g/dL (1.7-4.1); Glucose 124 mg/dL (80-110); HEMOLYSIS < 15 (0-50); Lipase 51 U/L (23-300); Magnesium 1.9 mg/dL (1.6-2.3); Potassium 3.5 mmol/L (3.4-5.1); Sodium 136 mmol/L (137-145); Total Protein 7.1 g/dL (6.3-8.2)
[2023-07-01] MEDS: ONDANSETRON 4 MG/2 ML INJ IV (11:33)
--- NOTE | 2023-07-01 11:42 | PC.NURSE ---
Patient denies having any pain, but presents with weakness the past 14days that has increased in the past 2 days. 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 He has had dizziness that causes nausea, and when he moves his eyes around a lot he gets nauseous also. History of prostate cancer which is in remission. Pt has been tolerating IV fluids with his nausea.
[2023-07-01 11:43] LABS: Troponin I < 0.012 ng/mL (0.01-0.034)
[2023-07-01] MEDS: SODIUM CHLORIDE 0.9% 500 ML 1000 ML IV (13:06)
[2023-07-01] MEDS: PANTOPRAZOLE 40 MG VIAL IV (13:06)
== END 2023-07-01 15:30 | disposition home or self-care (01) ==
PROVIDERS: Emergency Provider Emergency Medicine; Family Provider Internal Medicine; PCP Physician Assistant
DX: E86.0 Dehydration (principal); R53.83 Other fatigue; Z20.822 Contact with and (suspected) exposure to COVID-19; I10 Essential (primary) hypertension
CPT/HCPCS: 36415; 71045; 80053; 81003; 82550; 83690; 83735; 84484; 85025; 87635; 93005; 96361; 96374; 96375; 99284; C9803; C9113; J2405

== ENCOUNTER 2023-08-22 19:38 | Emergency (ER) | payer MEDICARE, OTHER, SELFPAY ==
[2023-08-22] VITALS (9 sets, daily range): BP systolic 138–203; BP diastolic 71–99; PULSE 51–69; RESP 7–20; TEMP 37.1; O2SAT 92–99; BMI 29.8
[2023-08-22 20:19] LABS: Alanine Aminotransferase 22 IU/L (<50); Albumin 4.3 g/dL (3.5-5.0); Albumin Globulin Ratio 1.5 (1.0-2.8); Alkaline Phosphatase 48 U/L (38-126); Aspartate Aminotransferase 26 IU/L (17-59); BUN Creatinine Ratio 15.2 (6-22); Bilirubin Total 0.8 mg/dL (0.2-1.3); Blood Urea Nitrogen 12 mg/dL (9-20); Calcium 9.4 mg/dL (8.4-10.2); Carbon Dioxide 27 mmol/L (22-32); Chloride 98 mmol/L (98-107); Estimated Glomerular Filt Rate > 60 mL/min (>60); Globulin 2.9 g/dL (1.7-4.1); Glucose 101 mg/dL (80-110); HEMOLYSIS 33 (0-50); Lipase 64 U/L (23-300); Potassium 3.4 mmol/L (3.4-5.1); Sodium 134 mmol/L (137-145); Total Protein 7.2 g/dL (6.3-8.2)
[2023-08-22 20:24] LABS: Add Manual Diff / Slide Review NO; Basophils Absolute Auto 100 /uL (0-100); Basophils Percent Auto 0.9 % (0-2); Eosinophils Absolute Auto 100 /uL (0-450); Eosinophils Percent Auto 2.4 % (2-4); Hematocrit 39.1 % (41-53); Hemoglobin 13.7 g/dL (13.5-17.5); Lymphocytes Absolute Auto 1100 /uL (1100-4500); Lymphocytes Percent Auto 17.3 % (25-40); Mean Corpuscular Hemoglobin 32.1 PG (26-34); Mean Corpuscular Volume 91.6 fL (80-100); Monocytes Absolute Auto 800 /uL (0-900); Monocytes Percent Auto 12.9 % (3-14); Neutrophils Absolute Auto 4100 /uL (1500-7000); Neutrophils Percent Auto 66.5 % (50-75); Platelet Count 166 X10^3/uL (150-400); Red Blood Cell Count 4.27 X10^6/uL (4.5-5.9); Red Cell Distribution Width 13.3 % (11.6-14.8); White Blood Cell Count 6.1 X10^3/uL (4.5-11.0)
--- NOTE | 2023-08-22 20:24 | ED_ITS ---
HPI - Nausea/Vomiting/Diarrhea General Chief complaint: Nausea/Vomiting/Diarrhea Stated complaint: N/stomach bloated Time Seen by Provider: 08/22/23 20:12 Source: patient, family (), RN notes reviewed and old records reviewed Mode of arrival: Ambulatory Limitations: no limitations History of Present Illness HPI Narrative: 78-year-old male history of prostate cancer with radiation in January, hypertension, dyslipidemia, depression, AAA that is at 5.1 cm in July and reported to be stable. Patient presents with complaint of nausea that has been on and off for some time he states he was here in June as well as July and some bloating. He states this most recent episode started yesterday. He states no fevers or chills. States last time he was told he was dehydrated. He has not had any vomiting he states sometimes he will feel a little dizzy but never had any syncope. He denies any chest pain or pressure, no shortness of breath. Denies any abdominal pain, denies any diarrhea or black or bloody stools. States he has not had a bowel movement in 2 or 3 days but that is not atypical. Has not felt like he needed to have a bowel movement. He denies any dysuria, urgency or frequency. No swelling in his extremities. He notes he does have an aortic aneurysm that is monitored every 6 months most recently in July and was reported stable. Patient states he is on medication for hypertension, dyslipidemia depression, denies any diabetes or CKD, states he had prostate cancer with radiation this year in January. Patient has prior orthopedic surgeries shoulder, knee and back, prior hiatal hernia repair. No other reported intra-abdominal or chest surgeries. Allergic to lisinopril gets angioedema. No tobacco, alcohol or illicit. Primary care is Angelia Salcedo. Related Data Home Medications Medication Instructions Recorded Confirmed ASPIRIN (#ASPIRIN) 81 mg PO Q DAY ##0 04/26/11 07/16/23 Terazosin HCl (HYTRIN) 2 mg PO HS ##0 04/26/11 07/16/23 VITAMIN D (Vitamin D3) 1,000 unit PO QDAY ##0 04/26/11 07/16/23 metoprolol tartrate 50 mg tablet 50 mg PO BID ##0 04/26/11 07/16/23 omeprazole magnesium 10 mg oral 20 mg PO DAILY 02/15/19 07/16/23 suspension,delayed release (Prilosec) rosuvastatin 20 mg tablet (Crestor) 20 mg PO DAILY 02/15/19 07/16/23 tadalafil 5 mg tablet (Cialis) 5 mg PO DAILY PRN not sure 02/15/19 07/16/23 Resmed Aircurve BIPAP #1 ea 02/18/19 07/16/23 naproxen sodium 220 mg capsule 220 mg PO BID PRN Pain (Scale 04/03/19 07/16/23 (Aleve) Score 4-6) nitroglycerin 0.4 mg sublingual 0.4 mg sublingual Q5M PRN 10/24/22 07/16/23 tablet venlafaxine 150 mg 150 mg PO DAILY 10/24/22 07/16/23 capsule,extended release 24 hr Previous Rx's Medication Instructions Recorded meclizine 25 mg tablet 25 mg PO BID PRN motion sickness 09/11/19 #20 tabs meclizine 25 mg tablet 25 mg PO BID PRN dizziness #14 tabs 04/29/23 ondansetron HCl 4 mg tablet 4 mg PO Q8H PRN nausea and 04/29/23 vomiting #14 tabs Allergies Allergy/AdvReac Type Severity Reaction Status Date / Time lisinopril [LISINOPRIL] Allergy Unknown Swelling Verified 07/16/23 14:33 of Lip/Tongue/Throat Review of Systems Review of Systems ROS Unobtainable: All systems reviewed & are unremarkable except as noted in HPI and below Patient History Medical History History of kidney stones Erectile dysfunction Decreased libido Lower urinary tract symptoms Arthritis Cancer of prostate Bacterial sinusitis Central sleep apnea Nephrolithiasis (~1997) Obesity (BMI 30-39.9) Osteoarthritis Depression Dyslipidemia Aortic aneurysm CAD (coronary artery disease) GERD (gastroesophageal reflux disease) [place] (~2004) Hypertension Obstructive sleep apnea of adult Acute sinusitis Surgical History History of shoulder surgery History of Nancy fundoplication S/P lumbar microdiscectomy Family History Father Hyperlipidemia Hypertension Social History 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 HEENT: Head normocephalic, atraumatic, EOMI, pupils reactive, face symmetric, moist mucous membranes NECK: Supple, full range of motion CARDIOVASCULAR: Regular rate and rhythm without murmurs, rubs or gallops. RESPIRATORY: Breath sounds equal bilaterally, no wheezes rales or rhonchi. ABDOMEN: Soft, nontender. Mildly distended but soft. No tympany. Normoactive bowel sounds all 4 quadrants. No guarding or rebound, rigidity, no mass, pulsatile bruit or mass appreciated : No CVA tenderness EXTREMITIES: Normal range of motion, no clubbing or edema. Neurovascularly intact NEUROLOGICAL: Cranial nerves II through XII grossly intact. Moving all extremities SKIN: Warm, dry, no petechiae, no rashes or lesions. Initial Vital Signs Initial Vital Signs: Vital Signs Temperature 98.7 F 08/22/23 19:43 Pulse Rate 66 08/22/23 19:43 Respiratory Rate 18 08/22/23 19:43 Blood Pressure 167/80 H 08/22/23 19:43 Pulse Oximetry 99 08/22/23 19:43 Oxygen Delivery Method Room Air 08/22/23 19:43 Course Orders Ordered: ED Orders 08/22/23 19:56 Complete Blood Count AUTO DIFF Stat Comprehensive Metabolic Panel Stat Lipase Stat Troponin & CK Cardiac Panel Stat 08/22/23 19:57 EKG-12 Lead Stat 08/22/23 20:38 CT abdomen pelvis w con Stat 08/22/23 22:31 Trop I [Troponin I] Stat Discontinued Medications Ondansetron HCl (Ondansetron 4 Mg Odt) 4 mg PO NOW PRN PRN Reason: Nausea And Vomiting Ondansetron HCl (Ondansetron 4 Mg/2 Ml Inj) 4 mg IV NOW PRN PRN Reason: Nausea And Vomiting Ondansetron HCl (Ondansetron 4 Mg/2 Ml Inj) 4 mg IV NOW ONE Stop: 08/22/23 20:38 Last Admin: 08/22/23 20:46 Dose: 4 mg Documented By: PREM Ondansetron HCl (Ondansetron 4 Mg/2 Ml Inj) 4 mg IV NOW ONE Stop: 08/22/23 22:27 Last Admin: 08/22/23 22:36 Dose: 4 mg Documented By: PREM Ondansetron HCl (Ondansetron 4 Mg Odt Prepack) 1 bottle MISC SEEINSTR ONE Stop: 08/22/23 23:10 Last Admin: 08/22/23 23:17 Dose: 1 bottle Documented By: ANA Pantoprazole Sodium (Pantoprazole 40 Mg Vial) 40 mg IV NOW ONE Stop: 08/22/23 22:27 Last Admin: 08/22/23 22:36 Dose: 40 mg Documented By: PREM Vital Signs Vital signs: Vital Signs - 8 hr 08/22/23 19:43 08/22/23 20:24 08/22/23 20:24 Temperature 98.7 F Pulse Rate 66 61 65 Respiratory Rate 18 10 L 13 Blood Pressure 167/80 H 190/91 H Pulse Oximetry 99 99 99 Oxygen Delivery Method Room Air Room Air 08/22/23 20:30 08/22/23 20:31 08/22/23 20:31 Temperature Pulse Rate 65 66 Respiratory Rate 17 20 Blood Pressure 203/99 H Pulse Oximetry 99 99 Oxygen Delivery Method 08/22/23 21:10 08/22/23 21:12 08/22/23 21:12 Temperature Pulse Rate 69 55 L Respiratory Rate 13 Blood Pressure 172/75 H Pulse Oximetry 92 98 Oxygen Delivery Method 08/22/23 21:30 08/22/23 21:31 08/22/23 21:31 Temperature Pulse Rate 54 L 51 L Respiratory Rate 12 7 L Blood Pressure 155/71 H Pulse Oximetry 98 99 Oxygen Delivery Method 08/22/23 23:18 Temperature Pulse Rate 66 Respiratory Rate 18 Blood Pressure 138/73 Pulse Oximetry 99 Oxygen Delivery Method Room Air MDM - Nausea/Vomiting/Diarrhea Lab Data 08/22/23 19:56 08/22/23 19:56 Labs: Lab Results 08/22/23 08/22/23 Range/Units 19:56 22:31 WBC 6.1 (4.5-11.0) X10^3/uL RBC 4.27 L (4.5-5.9) X10^6/uL Hgb 13.7 (13.5-17.5) g/dL Hct 39.1 L (41-53) % MCV 91.6 (80-100) fL MCH 32.1 (26-34) PG MCHC 35.0 (30-36) % RDW 13.3 (11.6-14.8) % Plt Count 166 (150-400) X10^3/uL Neut % (Auto) 66.5 (50-75) % Lymph % (Auto) 17.3 L (25-40) % [place] % (Auto) 12.9 (3-14) % Eos % (Auto) 2.4 (2-4) % Baso % (Auto) 0.9 (0-2) % Neut # (Auto) 4100 (9367-4845) /uL Lymph # (Auto) 1100 (7537-6748) /uL [place] # (Auto) 800 (0-900) /uL Eos # (Auto) 100 (0-450) /uL Baso # (Auto) 100 (0-100) /uL Sodium 134 L (137-145) mmol/L Potassium 3.4 (3.4-5.1) mmol/L Chloride 98 (98-107) mmol/L Carbon Dioxide 27 (22-32) mmol/L BUN 12 (9-20) mg/dL Creatinine 0.79 (0.66-1.25) mg/dL Estimated GFR > 60 (>60) mL/min BUN/Creatinine Ratio 15.2 (6-22) Glucose 101 (80-110) mg/dL Calcium 9.4 (8.4-10.2) mg/dL Total Bilirubin 0.8 (0.2-1.3) mg/dL AST 26 (17-59) IU/L ALT 22 (<50) IU/L Alkaline Phosphatase 48 (38-126) U/L Total Creatine Kinase 128 (55-170) U/L Troponin I 0.016 0.012 (0.01-0.034) ng/mL Total Protein 7.2 (6.3-8.2) g/dL Albumin 4.3 (3.5-5.0) g/dL Globulin 2.9 (1.7-4.1) g/dL Albumin/Globulin Ratio 1.5 (1.0-2.8) Lipase 64 (23-300) U/L Urine Dip Bedside Urine Glucose Negative Bedside Urine Bilirubin - Negative Bedside Urine Ketone - Negative Urine Specific Almond 1.01 Bedside Urine Occult Blood - Negative Bedside Urine pH 7.5 Bedside Urine Protein - Negative Bedside Urine Urobilinogen - Negative Bedside Urine Nitrite - Negative Bedside Urine Leukocytes - Negative Esterase Imaging Data CT scan - abdomen/pelvis: Radiologist's Impression: [address] [address] [address] Scan Report Signed Patient: Chris Ba MR#: [id number] : 1945 Acct:[id number] Age/Sex: 78 / M Date of Service: 08/22/23 Loc: ED Accession Number: [id number] Procedure: CT abdomen pelvis w con Ordering Provider: Caitlin Alston D.O. PROCEDURE: CT ABDOMEN PELVIS W CON INDICATIONS: nausea, bloating, several weeks,hx AAA last imaged octob TECHNIQUE: After the administration of intravenous contrast, axial sections acquired from the lung bases to the pubic symphysis. Coronal and sagittal reformats were performed. For radiation dose reduction, the following was used: automated exposure control, adjustment of mA and/or kV according to patient size. COMPARISON: None. FINDINGS: Image quality: Excellent. Lung bases: Small hiatal hernia. Heart: Cardiomegaly. ABDOMEN: Liver: Benign hepatic cysts. Gallbladder: Unremarkable. Biliary ducts: Unremarkable. Pancreas: Unremarkable. Spleen: Unremarkable. Adrenal Glands: Unremarkable. Kidneys and Ureters: Fluid attenuating renal cysts; no complex renal cysts which require follow-up. No hydronephrosis or nephrolithiasis. Punctate nonobstructing right-sided nephrolithiasis. Stomach and Bowel: Moderate colonic stool load. Colonic diverticulosis without evidence of diverticulitis. Mild asymmetric rectal wall thickening (series 2, image 84). Peritoneum: No abnormal intraperitoneal fluid. No free air. Ventral Wall: No hernias. Abdominal Nodes: No retroperitoneal or mesenteric adenopathy by size criteria. Vessels: Aorta and inferior vena cava are normal in size. PELVIS: Pelvic Organs: Prostatomegaly. Bladder: Urinary bladder diverticula. Pelvic Nodes: No enlarged lymph nodes. Miscellaneous: Small, fat containing inguinal hernias.. Bones: Unremarkable. IMPRESSION: Moderate colonic stool load, without obstruction. Mild asymmetric rectal wall thickening. This could be related to prior radiation therapy, less likely malignancy. Consider outpatient colonoscopy, if not up-to-date. Evidence of chronic outlet obstruction, with bladder wall diverticula. Additional chronic findings as above. Dictated by: Jamel Back M.D. on 08/22/2023 at 21:33 Approved by: Jamel Back M.D. on 08/22/2023 at 21:37 ECG Data Attestation: I personally reviewed and interpreted this ECG as follows: Interpretation: Sinus rhythm rate of 62 TX 160 QRS 88 QTC of 462. No acute ST elevation. PAC present. Patient has inverted T-waves in 3, no new elevation noted. Patient has prior from 07/01/2023 which appears similar. MDM Narrative Medical decision making narrative: 78-year-old male with complaint of nausea and some bloating. Patient's does have some mild distention but this may also be his habitus. Exam is overall benign EKG shows no acute changes, labs including CBC, CMP lipase and LFTs were obtained as well as urine. Patient does not have any chest pain shortness of breath diaphoresis or other cardiac kind of anginal equivalents but did have troponin ordered. He was here in June with similar symptoms. EKG shows no acute changes. CBC shows a white count of 6.1 hemoglobin 13 platelets of 166 no leftward shift. Sodium is 134 otherwise appropriate electrolytes creatinine LFTs and lipase. Troponin is negative. Point of care urine showed no signs of infection. Patient did not have any abdominal imaging at that time so CT abdomen pelvis was obtained. Shows moderate colonic stool load without obstruction, mild asymmetric rectal wall thickening could be related to prior radiation less likely malignancy consider outpatient colonoscopy if not up-to-date, patient has renal cysts, small hiatal hernia, cardiomegaly, benign hepatic cysts. Prostatomegaly. Small fat containing inguinal hernias. Patient was given a dose of Zofran here in the department he had improvement initially but it returned. Given additional dose along with Protonix which he had last time and states that was helpful for a short period of time. Discussed with patient could possibly be atypical cardiac source although no other symptoms. We will repeat troponin which was negative on repeat. Discussed with patient family would recommend follow up and possibly EGD. Also noted thickening of the rectal area of the likely source of his nausea but recommended follow-up. Discussed return precautions. Will give prepack of Zofran. Discharge Plan Departure Patient Disposition: Home Clinical Impression: Nausea Instructions: DI for Nausea -- Adult Activity Restrictions/Additional Instructions: Please follow-up with your physician for recheck. Your workup does show some rectal wall thickening, could be secondary to prior radiation therapy but recommended to have outpatient colonoscopy if you have not had 1 in the last 1-2 years. Please return for new or worsening symptoms, persistent vomiting, fevers, new abdominal back or flank pain, new chest pain, black or bloody stools, lightheadedness or passing out or other new or concerning changes. Prescriptions: No Action meclizine 25 mg tablet 25 mg PO BID PRN (Reason: dizziness) Qty: 14 0RF ondansetron HCl 4 mg tablet 4 mg PO Q8H PRN (Reason: nausea and vomiting) Qty: 14 0RF meclizine 25 mg tablet 25 mg PO BID PRN (Reason: motion sickness) Qty: 20 0RF Terazosin HCl (HYTRIN) 2 mg PO HS Qty: 0 ASPIRIN (#ASPIRIN) 81 mg PO Q DAY Qty: 0 metoprolol tartrate 50 MG tablet 50 mg PO BID Qty: 0 VITAMIN D (Vitamin D3) 1,000 unit PO QDAY Qty: 0 naproxen sodium [Aleve] 220 mg Capsule 220 mg PO BID PRN (Reason: Pain (Scale Score 4-6)) rosuvastatin [Crestor] 20 mg tablet 20 mg PO DAILY tadalafil [Cialis] 5 mg tablet 5 mg PO DAILY PRN (Reason: not sure) Prilosec 10 mg susp,delayed release for recon 20 mg PO DAILY (DME) Resmed Aircurve BIPAP Qty: 1 Dose Instruction: As directed Patient Comments: Pressure: IPAP 20 EPAP 8 DME: [facility] Rx Instructions: As directed venlafaxine 150 mg capsule,extended release 24hr 150 mg PO DAILY nitroglycerin 0.4 mg tablet, sublingual 0.4 mg sublingual Q5M PRN Rx Instructions: do not exceed 3 doses per episode Referrals: Aneglia Molina PA-C [Primary Care Provider] - Stand Alone Forms: Patient Portal/API
--- NOTE | 2023-08-22 20:38 | DI.CT.S_ITS ---
PROCEDURE: CT ABDOMEN PELVIS W CON INDICATIONS: nausea, bloating, several weeks,hx AAA last imaged octob TECHNIQUE: After the administration of intravenous contrast, axial sections acquired from the lung bases to the pubic symphysis. Coronal and sagittal reformats were performed. For radiation dose reduction, the following was used: automated exposure control, adjustment of mA and/or kV according to patient size. COMPARISON: None. FINDINGS: Image quality: Excellent. Lung bases: Small hiatal hernia. Heart: Cardiomegaly. ABDOMEN: Liver: Benign hepatic cysts. Gallbladder: Unremarkable. Biliary ducts: Unremarkable. Pancreas: Unremarkable. Spleen: Unremarkable. Adrenal Glands: Unremarkable. Kidneys and Ureters: Fluid attenuating renal cysts; no complex renal cysts which require follow-up. No hydronephrosis or nephrolithiasis. Punctate nonobstructing right-sided nephrolithiasis. Stomach and Bowel: Moderate colonic stool load. Colonic diverticulosis without evidence of diverticulitis. Mild asymmetric rectal wall thickening (series 2, image 84). Peritoneum: No abnormal intraperitoneal fluid. No free air. Ventral Wall: No hernias. Abdominal Nodes: No retroperitoneal or mesenteric adenopathy by size criteria. Vessels: Aorta and inferior vena cava are normal in size. PELVIS: Pelvic Organs: Prostatomegaly. Bladder: Urinary bladder diverticula. Pelvic Nodes: No enlarged lymph nodes. Miscellaneous: Small, fat containing inguinal hernias.. Bones: Unremarkable. IMPRESSION: Moderate colonic stool load, without obstruction. Mild asymmetric rectal wall thickening. This could be related to prior radiation therapy, less likely malignancy. Consider outpatient colonoscopy, if not up-to-date. Evidence of chronic outlet obstruction, with bladder wall diverticula. Additional chronic findings as above. Dictated by: Jamel Back M.D. on 08/22/2023 at 21:33 Approved by: Jamel Back M.D. on 08/22/2023 at 21:37
[2023-08-22] MEDS: ONDANSETRON 4 MG/2 ML INJ IV ×2 (20:46→22:36)
[2023-08-22 21:53] LABS: Creatine Kinase 128 U/L (55-170)
[2023-08-22 22:06] LABS: Troponin I 0.016 ng/mL (0.01-0.034)
[2023-08-22] MEDS: PANTOPRAZOLE 40 MG VIAL IV (22:36)
[2023-08-22 23:00] LABS: Troponin I 0.012 ng/mL (0.01-0.034)
[2023-08-22] MEDS: ONDANSETRON 4 MG ODT PREPACK 1 BOTTLE MISC (23:17)
== END 2023-08-22 23:27 | disposition home or self-care (01) ==
PROVIDERS: Emergency Provider Emergency Medicine; Family Provider Internal Medicine; PCP Physician Assistant
DX: R11.0 Nausea (principal); R14.0 Abdominal distension (gaseous); Z79.899 Other long term (current) drug therapy
CPT/HCPCS: 36415; 74177; 80053; 81003; 82550; 83690; 84484; 85025; 93005; 93010; 96374; 96375; 96376; 99284; C9113; J2405; Q9967

== ENCOUNTER 2023-08-25 15:35 | Emergency (ER) | payer MEDICARE, OTHER, SELFPAY ==
[2023-08-25 15:41] VITALS: BP 179/84; PULSE 62; RESP 18; TEMP 36.7; O2SAT 98; BMI 29.8
== END 2023-08-25 17:30 | disposition left against medical advice (07) ==
PROVIDERS: Emergency Provider Emergency Medicine; Family Provider Internal Medicine; PCP Physician Assistant
DX: R11.0 Nausea (principal)
CPT/HCPCS: 99281

== ENCOUNTER → 2023-08-30 10:09 | Outpatient (CLI) | payer MEDICARE, OTHER, SELFPAY ==
--- NOTE | 2023-08-30 10:13 | DI.CT.S_ITS ---
PROCEDURE: CT HEAD/BRAIN WO CON INDICATIONS: Tinnitus, bilateral TECHNIQUE: Noncontrast 4.5 mm thick angled axial sections acquired from the foramen magnum to the vertex, with coronal and sagittal reformats. For radiation dose reduction, the following was used: automated exposure control, adjustment of mA and/or kV according to patient size. COMPARISON: None. FINDINGS: Image quality: Excellent. CSF spaces: Basal cisterns are patent. No extra-axial fluid collections. Ventricles are normal in size and shape. Brain: No midline shift. No intracranial masses or hemorrhage. Maier-white matter interface is normal. Moderate cerebral and cerebellar volume loss with multifocal white matter chronic ischemic change noted. Atherosclerotic calcification noted associated with cavernous segments of both internal carotid arteries. Skull and face: Calvarium and visualized facial bones are intact, without suspicious lesions. Sinuses: Visualized sinuses and mastoids are clear. IMPRESSION: Atrophy and chronic ischemic change without intracranial hemorrhage or mass effect Approved by: Geovanni Patel M.D. on 08/30/2023 at 11:55
== END ==
PROVIDERS: Family Provider Internal Medicine; PCP Physician Assistant; Referring Provider Physician Assistant; Visit Provider Physician Assistant
DX: H93.13 Tinnitus, bilateral (principal); R11.0 Nausea
CPT/HCPCS: 70450

== ENCOUNTER → 2023-12-15 14:33 | Outpatient (CLI) | payer MEDICARE, OTHER, SELFPAY ==
[2023-12-15 18:25] LABS: Prostate Specific Antigen 0.953 ng/mL (0.10-4.00)
[2023-12-15 18:27] LABS: Testosterone 286 ng/dL (71.8-623)
== END ==
LOC: LAB 14:35
PROVIDERS: Family Provider Internal Medicine; PCP Physician Assistant; Referring Provider Urology; Visit Provider Urology
DX: C61 Malignant neoplasm of prostate (principal); R68.82 Decreased libido
CPT/HCPCS: 36415; 84153; 84403

== ENCOUNTER → 2024-02-01 11:04 | Outpatient (CLI) | payer MEDICARE, OTHER, SELFPAY ==
[2024-02-01 12:16] LABS: Alanine Aminotransferase 37 IU/L (<50); Albumin 4.3 g/dL (3.5-5.0); Albumin Globulin Ratio 1.8 (1.0-2.8); Alkaline Phosphatase 47 U/L (38-126); Aspartate Aminotransferase 33 IU/L (17-59); BUN Creatinine Ratio 20.6 (6-22); Bilirubin Total 0.7 mg/dL (0.2-1.3); Blood Urea Nitrogen 14 mg/dL (9-20); Calcium 8.9 mg/dL (8.4-10.2); Carbon Dioxide 28 mmol/L (22-32); Chloride 101 mmol/L (98-107); Estimated Glomerular Filt Rate > 60 mL/min (>60); Globulin 2.4 g/dL (1.7-4.1); Glucose 92 mg/dL (80-110); HEMOLYSIS < 15 (0-50); Magnesium 1.8 mg/dL (1.6-2.3); Potassium 4.1 mmol/L (3.4-5.1); Sodium 135 mmol/L (137-145); Total Protein 6.7 g/dL (6.3-8.2)
== END ==
LOC: LAB 11:06
PROVIDERS: Family Provider Internal Medicine; PCP Physician Assistant; Referring Provider Specialist; Visit Provider Specialist
DX: I10 Essential (primary) hypertension (principal); E78.2 Mixed hyperlipidemia
CPT/HCPCS: 36415; 80053; 80061; 83704; 83735

== ENCOUNTER → 2024-02-08 10:19 | Outpatient (CLI) | payer MEDICARE, OTHER, SELFPAY ==
--- NOTE | 2024-02-08 10:20 | DI.ECHO.S_ITS ---
[facility] : : [address] : : [place] : : [id number] : : Phone: [phone] Echocardiogram Report + + :Name: KWASI ESCAMILLA Study Date: 02/08/2024 Height: 72 in : :[facility] ReadingLocation: Weight: 220 lb : : Gender: Male BSA: 2.2 m2 : :: 1945 Age: 78 yrs BP: 145/82 mmHg: :Reason For Study: ANEURYSM OF THE ASCENDING AORTA : :Ordering Physician: SIMONA, : :JOHANA Performed By: Roland Bass : :Referring: JOHANA JARVIS : + + Interpretation Summary Left ventricular systolic function remains normal with an estimated ejection fraction of 55 to 60% without focal abnormality although with a moderate dyssynchronous contraction pattern and systolic function appears slightly more dynamic compared to the previous exam. There is moderate concentric LVH with septal prominence that appears similar to the previous exam and a diastolic relaxation abnormality with probable normal filling pressures, likely lower compared to the previous study. Right ventricle is borderline enlarged but smaller compared to the previous exam. Right ventricular systolic function remains normal. Right ventricular systolic pressure cannot be estimated but CVP is likely around 3 mmHg. There is mild left atrial enlargement and normal right atrial size, the former has increased in size while the latter has decreased in size since the previous study. There is moderate aortic valve sclerosis which is slightly progressive, but without any significant stenosis. There continues to be mild aortic regurgitation remains unchanged and no other significant valvular abnormality. The ascending aorta are remains moderate to severely enlarged and the aortic arch moderately enlarged, measuring 4.9 cm and 3.4 cm, respectively, but both are essentially unchanged from the previous study. Procedure: A two-dimensional transthoracic echocardiogram with color flow and Doppler was performed. The study quality was technically adequate. Comparison is made with the echocardiogram of 08/06/2021. The patient was in sinus rhythm with heart rates between 63-73 bpm during the exam. Left Ventricle: The left ventricle is normal in size. The estimated left ventricular end diastolic volume is 140 mL compared to the previous 126 ml. There is moderate concentric left ventricular hypertrophy. There is moderate proximal septal thickening noted. Left ventricular systolic function appears normal without focal wall motion abnormalities. The ejection fraction is estimated to be 55-60%. There is a mild dyssynchronous contraction pattern due to the paced rhythm. This is slightly more dynamic compared to the previous study. Diastolic parameters suggest a relaxation abnormality of the left ventricle, consistent with probable normal filling pressures. This is likely lower compared to the previous study. Right Ventricle: The right ventricle is borderline dilated. This is slightly smaller compared to the previous study. The right ventricular systolic function is normal. This is unchanged compared to the previous study. Atria: The left atrium is mildly dilated. The left atrium has mildly increased in size since the prior echo exam. Right atrial size is normal. The right atrium has mildly decreased in size since the prior echo exam. The interatrial septum grossly appears intact with no obvious evidence for an atrial septal defect. Mitral Valve: There is mild mitral annular calcification. The mitral valve leaflets appear normal. There is no evidence of stenosis, fluttering, or prolapse. There is no mitral valve stenosis. There is trace mitral regurgitation. Aortic Valve: The aortic valve is trileaflet. The aortic valve is moderately calcified. There is mildly reduced leaflet mobility. This is slightly more prominent compared to the previous study. There is no hemodynamically significant valvular aortic stenosis. There is mild aortic regurgitation. This is unchanged compared to the previous study. Tricuspid Valve: The tricuspid valve is normal in structure and function. There is no tricuspid stenosis. There is a trace or physiologic amount of tricuspid regurgitation. Pulmonary artery pressures cannot be estimated because of the lack of a measurable TR jet velocity but the IVC suggests a CVP of around 3 mmHg. Pulmonic Valve: The pulmonic valve is not well visualized. There is no pulmonic valvular stenosis. There is a trace or physiologic amount of pulmonic regurgitation. Great Vessels: The aortic root is mildly dilated. The ascending aorta is moderate-severely enlarged. The aortic arch is moderately enlarged. This is unchanged compared to the previous study. The IVC is of normal diameter and collapses greater than 50% with a sniff. This suggests a low right atrial pressure of 3 mm Hg. Pericardium/ Pleura There is no pericardial effusion. There is no pleural effusion. MMode/2D Measurements & Calculations LVIDd: 4.9 cm LVOT diam: 2.3 cm LVIDs: 3.1 cm Ao root diam: 3.8 cm FS: 36.5 % asc Aorta Diam: 4.9 cm IVSd: 1.7 cm Ao Arch Diam (Prox Trans): 3.4 cm LVPWd: 1.4 cm LV monsivais. diameter/BSA (cm/m^2): 2.2 LV sys. diameter/BSA (cm/m^2): 1.4 LA A2 area: 27.5 cm2 RA long axis: 5.8 cm LA A4 area: 20.2 cm2 RA area: 16.1 cm2 LA length (vol): 6.0 cm RA vol: 37.7 ml LA vol: 78.6 ml RA : 17.0 ml/m2 LA vol index: 35.4 ml/m2 IVC diam: 1.6 cm RVD1 (basal): 4.0 cm RVD2 (mid): 4.0 cm TAPSE: 2.3 cm Doppler Measurements & Calculations Ao V2 max: 159.6 cm/sec LVOT Max Matthew: 109.5 cm/sec Ao V2 mean: 119.0 cm/sec LV V1 max P.8 mmHg Ao max P.2 mmHg LV V1 VTI: 25.3 cm Ao mean P.2 mmHg APPLE(I,D): 3.1 cm2 Ao V2 VTI: 33.1 cm APPLE(V,D): 2.8 cm2 sev ratio: 0.77 APPLE indexed to BSA (cm^2/m^2): 1.4 MV E max matthew: 57.9 cm/sec TR max matthew: 243.3 cm/sec MV A max matthew: 91.0 cm/sec TR max P.7 mmHg MV E/A: 0.64 PA V2 max: 123.6 cm/sec Med Peak E' Matthew: 5.7 cm/sec PA V2 mean: 89.5 cm/sec E/E' med: 10.2 PA mean P.5 mmHg Lat Peak E' Matthew: 7.5 cm/sec PA pr(Accel): 29.3 mmHg E/E' lat: 7.7 E/e' average: 9.0 MV dec time: 0.26 sec SV(LVOT): 101.5 ml Reading Physician:05:22 PM
== END ==
PROVIDERS: Family Provider Internal Medicine; PCP Physician Assistant; Referring Provider Specialist; Visit Provider Specialist
DX: I34.81 Nonrheumatic mitral (valve) annulus calcification (principal); I35.1 Nonrheumatic aortic (valve) insufficiency; I77.89 Other specified disorders of arteries and arterioles; I77.810 Thoracic aortic ectasia; I70.0 Atherosclerosis of aorta
CPT/HCPCS: 93306

== ENCOUNTER → 2024-03-27 15:01 | Outpatient (CLI) | payer MEDICARE, OTHER, SELFPAY ==
[2024-03-27 17:00] LABS: Estimated Glomerular Filt Rate > 60 mL/min (>60)
== END ==
PROVIDERS: Family Provider Internal Medicine; PCP Physician Assistant; Referring Provider Radiology Diagnostic Radiology; Visit Provider Radiology Diagnostic Radiology
DX: J32.9 Chronic sinusitis, unspecified (principal); B96.89 Other specified bacterial agents as the cause of diseases classified elsewhere
CPT/HCPCS: 36415; 82565

== ENCOUNTER → 2024-03-28 13:17 | Outpatient (CLI) | payer MEDICARE, OTHER, SELFPAY ==
--- NOTE | 2024-03-28 13:18 | DI.CT.S_ITS ---
PROCEDURE: CT ABDOMEN PELVIS W CON INDICATIONS: ABDOMINAL BLOATING,GASSINESS,ABD DISCOMFORT TECHNIQUE: After the administration of intravenous contrast, axial sections acquired from the lung bases to the pubic symphysis. Coronal and sagittal reformats were performed. For radiation dose reduction, the following was used: automated exposure control, adjustment of mA and/or kV according to patient size. COMPARISON: Outside Film, NM, PET NECK TO MID THIGH, 08/10/2022, 13:14. [facility], CT, CT ABDOMEN PELVIS W CON, 08/22/2023, 20:43. FINDINGS: Image quality: Diagnostic. Lower Chest: Aneurysmal dilatation of the ascending aorta at its root measuring 4.8 cm. Severe coronary artery calcifications. Mild cardiomegaly. Mild pericardial effusion, unchanged. ABDOMEN: Liver: No solid mass. Gallbladder: No radiopaque gallstones or wall thickening. Biliary ducts: No biliary dilation. Pancreas: No ductal dilation. Spleen: Size is within normal limits. Adrenal Glands: No adrenal nodules. Kidneys and Ureters: Slight interval increase in the size of a exophytic very large cyst off of the right kidney. On previous image 30/2 it measured 9.2 x 11.0 cm. On current image 32/2 it measures 10.7 x 13.1 cm. It has also developed a mildly perceptible wall. Multiple other bilateral renal cysts are again seen. There is a 3 mm nonobstructing right middle pole renal stone. Stomach and Bowel: Normal colonic caliber, without significant wall thickening. Peritoneum: No abnormal intraperitoneal fluid. No free air. Ventral Wall: No significant ventral hernia. Abdominal Nodes: No retroperitoneal or mesenteric adenopathy by size criteria. Vessels: Aorta and inferior vena cava are normal in size. Dense calcifications of the proximal SMA. Cannot exclude hemodynamically significant stenosis. PELVIS: Pelvic Organs: Moderate prostatomegaly. Bladder: Partially collapsed bladder with mild diffuse wall thickening suggesting probable bladder outlet obstruction. Pelvic Nodes: No enlarged lymph nodes. Miscellaneous: Bilateral fat containing inguinal hernias. Bones: No aggressive osseous abnormality. IMPRESSION: 1. Severe coronary artery calcifications, mild cardiomegaly.. 2. Aneurysmal dilatation of the ascending aorta, measuring 4.8 cm at its root. 3. Interval increase in the size of a very large exophytic right renal cyst, now measuring 13.1 cm maximum diameter. 4. Interval increase in size of a very large exophytic cyst off of the right kidney. 5. Moderate prostatomegaly with bladder wall thickening likely representing bladder outlet obstruction. 6. Bilateral fat containing inguinal hernias. Dictated by: Lasha Drew M.D. on 03/28/2024 at 16:18 Approved by: Lasha Drew M.D. on 03/28/2024 at 16:27
== END ==
PROVIDERS: Family Provider Internal Medicine; PCP Physician Assistant; Referring Provider Physician Assistant; Visit Provider Physician Assistant
DX: I71.21 Aneurysm of the ascending aorta, without rupture (principal); I25.10 Atherosclerotic heart disease of native coronary artery without angina pectoris; N28.1 Cyst of kidney, acquired; N40.0 Benign prostatic hyperplasia without lower urinary tract symptoms; K40.20 Bilateral inguinal hernia, without obstruction or gangrene, not specified as recurrent; N20.0 Calculus of kidney; I51.7 Cardiomegaly; I31.39 Other pericardial effusion (noninflammatory); R14.0 Abdominal distension (gaseous); R10.9 Unspecified abdominal pain; R14.2 Eructation
CPT/HCPCS: 74177; Q9967

== ENCOUNTER → 2024-06-20 11:34 | Outpatient (CLI) | payer MEDICARE, OTHER, SELFPAY ==
[2024-06-20 18:07] LABS: Prostate Specific Antigen 0.691 ng/mL (0.10-4.00)
== END ==
LOC: LAB 11:36
PROVIDERS: Family Provider Internal Medicine; PCP Physician Assistant; Referring Provider Radiology Radiation Oncology; Visit Provider Radiology Radiation Oncology
DX: C61 Malignant neoplasm of prostate (principal)
CPT/HCPCS: 36415; 84153

== ENCOUNTER → 2024-06-25 10:18 | Outpatient (CLI) | payer MEDICARE, OTHER, SELFPAY ==
[2024-06-25 11:18] LABS: Alanine Aminotransferase 25 IU/L (<50); Albumin 3.9 g/dL (3.5-5.0); Albumin Globulin Ratio 1.6 (1.0-2.8); Alkaline Phosphatase 56 U/L (38-126); Aspartate Aminotransferase 26 IU/L (17-59); BUN Creatinine Ratio 17.7 (6-22); Bilirubin Total 0.7 mg/dL (0.2-1.3); Blood Urea Nitrogen 14 mg/dL (9-20); Calcium 9.1 mg/dL (8.4-10.2); Carbon Dioxide 28 mmol/L (22-32); Chloride 97 mmol/L (98-107); Cholesterol 105 mg/dL (140-199); Estimated Glomerular Filt Rate > 60 mL/min (>60); Globulin 2.5 g/dL (1.7-4.1); Glucose 109 mg/dL (80-110); HDL Cholesterol 32 mg/dL (40-60); HEMOLYSIS < 15 (0-50); LDL Cholesterol Calculated 54 mg/dL (<100); Magnesium 1.6 mg/dL (1.6-2.3); Sodium 131 mmol/L (137-145); Total Protein 6.4 g/dL (6.3-8.2); Triglycerides 94 mg/dL (35-150)
== END ==
PROVIDERS: Family Provider Internal Medicine; PCP Physician Assistant; Referring Provider Specialist; Visit Provider Specialist
DX: I10 Essential (primary) hypertension (principal); E78.2 Mixed hyperlipidemia
CPT/HCPCS: 36415; 80053; 80061; 83735

== ENCOUNTER → 2024-07-17 14:55 | Outpatient (CLI) | payer MEDICARE, OTHER, SELFPAY ==
--- NOTE | 2024-07-17 14:56 | DI.US.S_ITS ---
PROCEDURE: US RENAL COMPLETE INDICATIONS: Follow-up renal cysts TECHNIQUE: Real-time scanning was performed of the kidneys and bladder, with image documentation. COMPARISON: CT abdomen pelvis 03/28/2024. FINDINGS: Kidneys: Kidneys are normal in size. Right kidney measures 18.4 cm long; left kidney measures 12.4 cm long. Right renal cortical thickness is 2.1 cm; left renal cortical thickness is 1.8 cm. Renal cortical echotexture is normal. No hydronephrosis or nephrolithiasis. No suspicious solid mass lesions. Two large simple right exophytic cysts measuring up to 12.9 cm in the superior pole and 3.1 cm in the inferior pole. Exophytic left simple cyst measuring up to 0.6 cm. Bladder: Pre-void bladder volume is 160 mL. Post-void residual is 84 mL. Pre-void images demonstrate no intraluminal masses or stones. On pre-void images, right ureteral jet is noted with color Doppler interrogation. (Of note, ureteral jets may not be detectable in up to 25% of cases due to insufficient differences in specific gravity between ureteral and bladder urine). Mild urinary bladder wall thickening measuring up to 1.1 cm. Miscellaneous: No free pelvic fluid. IMPRESSION: Bilateral simple renal cysts, including large right exophytic cyst on the superior pole measuring up to 12.9 cm. Prevoid volume of 160 cc and postvoid residual volume of 84 cc. Right ureteral jet visualized. Left ureteral jet is not visualized. Urinary bladder wall thickening. Findings are similar to CT 03/28/2024, may represent bladder outlet obstruction in the setting of prostatomegaly. Approved by: Chantel Vaughan M.D.,Ph.D. on 07/18/2024 at 0:40
== END ==
LOC: US 14:55
PROVIDERS: Family Provider Internal Medicine; PCP Physician Assistant; Referring Provider Urology; Visit Provider Urology
DX: N28.1 Cyst of kidney, acquired (principal)
CPT/HCPCS: 76770

== ENCOUNTER → 2025-01-24 15:31 | Outpatient (CLI) | payer MEDICARE, OTHER, SELFPAY | PROVIDERS: Family Provider Internal Medicine; PCP Physician Assistant; Referring Provider Urology; Visit Provider Urology | DX: C61 Malignant neoplasm of prostate (principal) | CPT/HCPCS: 36415; 84153 ==

== ENCOUNTER → 2025-01-31 11:40 | Outpatient (CLI) | payer MEDICARE, OTHER, SELFPAY ==
--- NOTE | 2025-01-31 11:44 | DI.US.S_ITS ---
PROCEDURE: US RENAL COMPLETE INDICATIONS: Follow-up renal cysts TECHNIQUE: Real-time scanning was performed of the kidneys and bladder, with image documentation. COMPARISON: [facility], , US RENAL COMPLETE, 07/17/2024, 15:06. FINDINGS: Kidneys: Right kidney measures 18.8 cm long; left kidney measures 12.7 cm long. Right renal cortical thickness is 1.8 cm; left renal cortical thickness is 1.9 cm. Renal cortical echotexture is normal. No nephrolithiasis. No suspicious solid mass lesions. There are multiple cysts noted in the right kidney with the largest measuring 13.2 x 12.2 x 10.1 cm. Given size and number of cysts in the right kidney, is difficult to delineate whether there is moderate hydronephrosis versus a single septated cyst versus a cyst and adjacent parapelvic cyst. There are multiple cysts noted in the left kidney the largest measuring 6.0 x 5.3 x 5.7 cm. No hydronephrosis visualized in the left kidney. Bladder: Pre-void bladder volume is 223 mL. Post-void residual is 41 mL. Pre-void images demonstrate no intraluminal masses or stones. There is possible 2 urinary bladder diverticula. 1 measures approximately 1.9 cm and is visualized near the anterior bladder. Neck of the diverticulum measures 1.2 cm. The 2nd diverticulum is seen in the mid right urinary bladder measuring 1.8 cm in size with neck of the diverticulum measuring 0.9 cm. On pre-void images, bilateral ureteral jets are noted with color Doppler interrogation. (Of note, ureteral jets may not be detectable in up to 25% of cases due to insufficient differences in specific gravity between ureteral and bladder urine). Miscellaneous: No free pelvic fluid. IMPRESSION: Multiple large right renal cysts with difficulty in determining whether there is moderate hydronephrosis versus a single septated cyst versus a cyst and adjacent parapelvic cyst. Largest cyst measures 13.2 cm in size. Multiple large left renal cyst measuring up to 6 cm in size. No hydronephrosis. Possible urinary bladder diverticula as described above. Consider further evaluation with contrast enhanced CT of the abdomen and pelvis. Dictated by: Rico Umana M.D. on 02/01/2025 at 1:02 Approved by: Rico Umana M.D. on 02/01/2025 at 1:18
== END ==
PROVIDERS: Family Provider Internal Medicine; PCP Physician Assistant; Referring Provider Urology; Visit Provider Urology
DX: N28.1 Cyst of kidney, acquired (principal)
CPT/HCPCS: 76770

== ENCOUNTER → 2025-02-17 09:59 | Outpatient (CLI) | payer MEDICARE, OTHER, SELFPAY ==
--- NOTE | 2025-02-17 10:00 | DI.CT.S_ITS ---
PROCEDURE: CT ABDOMEN PELVIS W CON INDICATIONS: History of kidney stones, question new hydronephrosis, cysts TECHNIQUE: After the administration of intravenous contrast, axial sections acquired from the lung bases to the pubic symphysis. Coronal and sagittal reformats were performed. For radiation dose reduction, the following was used: automated exposure control, adjustment of mA and/or kV according to patient size. COMPARISON: [facility], US, US RENAL COMPLETE, 01/31/2025, 12:29. [facility], CT, CT ABDOMEN PELVIS W CON, 03/28/2024, 14:20. FINDINGS: Image quality: Diagnostic. Lower Chest: Cardiomegaly. Aortic valve calcifications. ABDOMEN: Liver: Hepatic cysts. Additional subcentimeter hypoattenuating lesions, too small to characterize by CT. Gallbladder: No radiopaque gallstones or wall thickening. Biliary ducts: No biliary dilation. Pancreas: No ductal dilation. Spleen: Size is within normal limits. Adrenal Glands: No adrenal nodules. Kidneys and Ureters: No hydronephrosis. No solid mass. No complex renal cystic lesion which requires follow up. Multiple bilateral renal cystic lesions which have homogeneous, low attenuation. This includes a right-sided renal sinus cyst. 4 mm nonobstructing right-sided nephrolithiasis. No hydronephrosis. Additional punctate nonobstructing nephrolithiasis in the inferior calyx of the right kidney. Stomach and Bowel: Normal colonic caliber, without significant wall thickening. Peritoneum: No abnormal intraperitoneal fluid. No free air. Ventral Wall: No significant ventral hernia. Abdominal Nodes: No retroperitoneal or mesenteric adenopathy by size criteria. Vessels: Aorta and inferior vena cava are normal in size. Extensive atherosclerotic disease, including severe SMA origin calcifications and moderate celiac axis calcifications. PELVIS: Pelvic Organs: Prostatomegaly. Bladder: Bladder wall trabeculation. Pelvic Nodes: No enlarged lymph nodes. Miscellaneous: Moderate right direct inguinal hernia containing fat and small left indirect inguinal hernia containing fat. Bones: No aggressive osseous abnormality. Degenerative disc disease of the lumbar spine. IMPRESSION: Simple appearing bilateral renal cysts; these are Bosniak 2 and require no further follow-up. A couple of nonobstructing right-sided nephrolithiasis, largest measuring 4 mm. No hydronephrosis. Extensive atherosclerotic disease, including of the SMA and celiac axis. Findings may predispose to chronic mesenteric ischemia. Correlate with symptoms. Extensive bladder diverticula, consistent with chronic outlet obstruction. Dictated by: Jamel Back M.D. on 02/17/2025 at 13:26 Approved by: Jamel Back M.D. on 02/17/2025 at 13:31
[2025-02-17 10:32] LABS: Estimated Glomerular Filt Rate > 60 mL/min (>60)
== END ==
LOC: CT 10:00
PROVIDERS: Family Provider Internal Medicine; PCP Physician Assistant; Referring Provider Urology; Visit Provider Urology
DX: N28.1 Cyst of kidney, acquired (principal); N20.0 Calculus of kidney; K76.89 Other specified diseases of liver; I70.91 Generalized atherosclerosis; I70.8 Atherosclerosis of other arteries; I51.7 Cardiomegaly; N40.0 Benign prostatic hyperplasia without lower urinary tract symptoms; K40.20 Bilateral inguinal hernia, without obstruction or gangrene, not specified as recurrent; Z87.442 Personal history of urinary calculi
CPT/HCPCS: 36415; 74177; 82565; Q9967

== ENCOUNTER 2025-04-26 13:38 | Emergency (ER) | payer MEDICARE, OTHER, SELFPAY ==
[2025-04-26] VITALS (10 sets, daily range): BP systolic 154–177; BP diastolic 74–86; PULSE 52–61; RESP 14; TEMP 36.7; O2SAT 92–99; BMI 29.1
--- NOTE | 2025-04-26 13:55 | DI.CT.S_ITS ---
PROCEDURE: CT HEAD/BRAIN WO CON INDICATIONS: fall, hit head, TECHNIQUE: Noncontrast 4.5 mm thick angled axial sections acquired from the foramen magnum to the vertex, with coronal and sagittal reformats. For radiation dose reduction, the following was used: automated exposure control, adjustment of mA and/or kV according to patient size. COMPARISON: None. FINDINGS: Image quality: Diagnostic. CSF spaces: Basal cisterns are patent. No extra-axial fluid collections. The ventricles are symmetric in size and shape. Brain: No intracranial bleeds or mass effect. There is cerebral volume loss, with resultant ventricular and sulcal prominence. There are periventricular and deep white matter chronic small vessel ischemic changes. There is intracranial internal carotid artery atherosclerosis. Skull and face: Calvarium and visualized facial bones appear intact, without suspicious lesions. There is a large cephalohematoma overlying the right posterior scalp. Sinuses: Visualized sinuses and mastoids are clear. IMPRESSION: Cephalhematoma without skull fracture or acute intracranial pathology. Dictated by: Arabella Caceres M.D. on 04/26/2025 at 14:32 Approved by: Arabella Caceres M.D. on 04/26/2025 at 14:35
--- NOTE | 2025-04-26 13:55 | DI.CT.S_ITS ---
PROCEDURE: CT CERVICAL SPINE WO CON INDICATIONS: fall, hit head TECHNIQUE: Noncontrast 3 mm thick sections acquired from the skull base to the T4 level. Sagittal and coronal reformats were then constructed. For radiation dose reduction, the following was used: automated exposure control, adjustment of mA and/or kV according to patient size. COMPARISON: None. FINDINGS: Image quality: Excellent. Bones: No fractures or dislocations. Visualized superior ribs are intact. There are degenerative changes throughout the cervical spine. Soft tissues: Prevertebral soft tissues are normal in thickness. No paravertebral hematomas. No apical pneumothoraces. IMPRESSION: No displaced fracture or traumatic subluxation. Dictated by: Arabella Caceres M.D. on 04/26/2025 at 14:35 Approved by: Arabella Caceres M.D. on 04/26/2025 at 14:39
--- NOTE | 2025-04-26 13:55 | DI.RAD.S_ITS ---
PROCEDURE: XR SHOULDER RT MIN 2V INDICATIONS: fall/pain TECHNIQUE: 3 views of the shoulder were acquired. COMPARISON: None. FINDINGS: Bones: No fractures or dislocations. No suspicious bony lesions. There is elevation of the humeral head relative to the glenoid fossa without dislocation. Degenerative changes of the glenohumeral and acromioclavicular joints are present. Visualized ribs appear intact. Soft tissues: No suspicious soft tissue calcifications. IMPRESSION: No acute bony abnormality. Osteoarthritis with likely remote rotator cuff tear. Dictated by: Arabella Caceres M.D. on 04/26/2025 at 14:39 Approved by: Arabella Caceres M.D. on 04/26/2025 at 14:41
[2025-04-26] MEDS: LIDOCAINE 1% (PF) 5 ML 10 ML SUBCUT (13:58)
--- NOTE | 2025-04-26 14:10 | ED.FALL ---
HPI - Fall General Chief Complaint: Fall Stated Complaint: Fall down two stairs, hit head Time Seen by Provider: 04/26/25 13:51 Source: patient Mode of arrival: Ambulatory History of Present Illness HPI Narrative: Mr. Chris Ba is a pleasant 79-year-old male with a past medical history of prostate cancer, BPPV, REJI, HTN, HLD, AAA who presents to the emergency department via EMS from home for a fall. Patient was going up 2 stairs in his garage, pushing a noah, when he fell backwards hitting the back of his scalp on a cabinet and then falling to the ground. He now has a large posterior scalp laceration and complains of right shoulder pain. Patient denies any precipitating symptoms of dizziness, lightheadedness, chest pain, shortness of breath, and did not lose consciousness. He does take aspirin but takes no other form of anticoagulation. Reports his neck does feel sore. Hx of R shoulder surgery x 2. Related Data Home Medications ?Medication ?Instructions ?Recorded ?Confirmed ASPIRIN (#ASPIRIN) 81 mg PO Q DAY ##0 04/26/11 03/06/25 Terazosin HCl (HYTRIN) 2 mg PO HS ##0 04/26/11 03/06/25 VITAMIN D (Vitamin D3) 1,000 unit PO QDAY ##0 04/26/11 03/06/25 metoprolol tartrate 50 mg tablet 50 mg PO BID ##0 04/26/11 03/06/25 omeprazole magnesium 10 mg oral 20 mg PO DAILY 02/15/19 03/06/25 suspension,delayed release (Prilosec) rosuvastatin 20 mg tablet (Crestor) 20 mg PO DAILY 02/15/19 03/06/25 tadalafil 5 mg tablet (Cialis) 5 mg PO DAILY PRN not sure 02/15/19 03/06/25 Resmed Aircurve BIPAP #1 ea 02/18/19 03/06/25 naproxen sodium 220 mg capsule 220 mg PO BID PRN Pain (Scale 04/03/19 03/06/25 (Aleve) Score 4-6) nitroglycerin 0.4 mg sublingual 0.4 mg sublingual Q5M PRN 10/24/22 03/06/25 tablet venlafaxine 150 mg 150 mg PO DAILY 10/24/22 03/06/25 capsule,extended release 24 hr Previous Rx's ?Medication ?Instructions ?Recorded meclizine 25 mg tablet 25 mg PO BID PRN motion sickness 09/11/19 #20 tabs meclizine 25 mg tablet 25 mg PO BID PRN dizziness #14 tabs 04/29/23 ondansetron HCl 4 mg tablet 4 mg PO Q8H PRN nausea and 04/29/23 vomiting #14 tabs cephalexin 500 mg capsule 500 mg PO TID 5 days #15 caps 04/26/25 Allergies Allergy/AdvReac Type Severity Reaction Status Date / Time lisinopril (LISINOPRIL) Allergy Severe Swelling Verified 03/06/25 10:27 of Lip/Tongue/Throat Penicillins Allergy Verified 04/26/25 13:45 Review of Systems Review of Systems ROS Unobtainable: All systems reviewed & are unremarkable except as noted in HPI and below Patient History Medical History Renal cyst Dysuria History of radiation therapy History of kidney stones Erectile dysfunction Decreased libido Lower urinary tract symptoms Arthritis Cancer of prostate Bacterial sinusitis Central sleep apnea Nephrolithiasis (~1997) Obesity (BMI 30-39.9) Osteoarthritis Depression Dyslipidemia Aortic aneurysm CAD (coronary artery disease) GERD (gastroesophageal reflux disease) Footdrop (~2004) Hypertension Obstructive sleep apnea of adult Acute sinusitis Surgical History History of shoulder surgery History of Nancy fundoplication S/P lumbar microdiscectomy Family History Father Hyperlipidemia Hypertension Social History marital status: details: maury Vaughn retired RN number of children: 1 household members: spouse lives independently: Yes caregiver/support person: No housing: other occupational status: other Previous occupational history: retired travel history: recurrent Smoking Status: Unknown if ever smoked alcohol intake: former substance use type: does not use caffeine: Yes Smoking Status: Unknown if ever smoked alcohol intake frequency: holidays/special occasions only Exam Narrative Exam Narrative: GENERAL: 79 year old patient appears stated age. Well-developed patient, in no acute distress. HEAD: Patient has had wrapped in gauze that is blood soaked on the posterior aspect. Gauze was removed revealing extremely matted hair with blood clots. No active bleeding. All blood clots were removed revealing a single 4 cm linear laceration on the posterior scalp with underlying hematoma. There is constant oozing of bleeding that stopped immediately with the placement of 8 kaila. EYES: PERRL. Extraocular motions intact. No scleral icterus. No injection or drainage. ENT: No hemotympanum bilaterally. Nose without bleeding, purulent drainage. Throat without erythema, tonsillar hypertrophy or exudate. Airway patent. NECK: Trachea midline. Cervical ROM intact. CARDIOVASCULAR: Regular rate and rhythm. Systolic murmur auscultated. RESPIRATORY: ?Nonlabored respirations. ?Speaking in clear, full sentences. ?Clear to auscultation. Breath sounds equal bilaterally. No wheezes, rales, or rhonchi. ? GASTROINTESTINAL: Abdomen soft, non-tender, nondistended. EXTREMITIES: Bilateral ankle braces in place. No tenderness to palpation of bilateral feet, ankles, lower extremities, knees, thighs, hips, hands, wrists, elbows, shoulders. Patient does have subjective pain with abduction of right shoulder. BACK: Nontender. No midline spinal tenderness. No bruising or wounds. NEURO: AOx3. ?Clear speech. ?Moves all 4 extremities appropriately. Sensation intact to light touch in bilateral lower and upper extremities. SKIN: Skin is warm and dry. No wounds besides posterior scalp laceration. Initial Vital Signs Initial Vital Signs: Vital Signs Pulse Oximetry 99 04/26/25 13:42 Procedures Laceration Repair Laceration 1: Site: scalp Side (If applicable): right Size (cm): 4 Description: linear Depth: simple, single layer Local Anesthetic: lidocaine 1% Amount of anesthesia used (mL): 3 Pre-repair: wound explored, irrigated extensively (cleansed with betadine) and deep structures intact Skin layer closed with: kaila (8) Course Orders Ordered: ED Orders 04/26/25 13:55 CT cervical spine wo con Stat CT head/brain wo con Stat XR shoulder RT 2+ views Stat Discontinued Medications Acetaminophen (Acetaminophen 325 Mg Tablet) 650 mg PO NOW ONE Stop: 04/26/25 14:10 Last Admin: 04/26/25 15:21 Dose: 650 mg Documented By: NICOLETTE Bacitracin (Bacitracin Oint 0.9 Gm Pckt) 1 applic TOP NOW ONE Stop: 04/26/25 16:00 Last Admin: 04/26/25 16:07 Dose: 1 applic Documented By: GREG Cephalexin HCl (Cephalexin 250 Mg Capsule) 500 mg PO NOW ONE Stop: 04/26/25 16:32 Last Admin: 04/26/25 16:50 Dose: 500 mg Documented By: RB Diphtheria/Tetanus/Acell Pertussis (Tet,Diph,Pertuss(Acell),Vac/Pf 0.5 Ml Syringe) 0.5 ml IM .ONCE ONE Stop: 04/26/25 14:10 Last Admin: 04/26/25 15:20 Dose: 0.5 ml Documented By: NICOLETTE Lidocaine HCl (Lidocaine 1% (Pf) 5 Ml) 10 ml SUBCUT NOW ONE Stop: 04/26/25 14:01 Last Admin: 04/26/25 13:58 Dose: 10 ml Documented By: RB Vital Signs Vital signs: Vital Signs - 8 hr 04/26/25 13:42 04/26/25 13:43 04/26/25 13:43 Temperature Pulse Rate 61 Respiratory Rate Blood Pressure 177/86 H Pulse Oximetry 99 97 Oxygen Delivery Method 04/26/25 13:45 04/26/25 14:17 04/26/25 14:30 Temperature 98.1 F Pulse Rate 59 L 55 L 56 L Respiratory Rate 14 Blood Pressure 177/86 H Pulse Oximetry 99 97 98 Oxygen Delivery Method Room Air 04/26/25 15:00 04/26/25 15:18 04/26/25 15:18 Temperature Pulse Rate 55 L 55 L Respiratory Rate Blood Pressure 173/81 H Pulse Oximetry 98 94 Oxygen Delivery Method 04/26/25 15:30 04/26/25 15:30 04/26/25 16:00 Temperature Pulse Rate 52 L 52 L Respiratory Rate Blood Pressure 154/74 H Pulse Oximetry 98 92 Oxygen Delivery Method 04/26/25 16:00 04/26/25 16:30 04/26/25 16:30 Temperature Pulse Rate 57 L Respiratory Rate Blood Pressure 158/78 H 164/80 H Pulse Oximetry 99 Oxygen Delivery Method MDM - Fall Medical Records Attestation: I reviewed the patient's medical records. Imaging Data CT scan - head: Radiologist's Impression: PROCEDURE: CT HEAD/BRAIN WO CON INDICATIONS: fall, hit head, TECHNIQUE: Noncontrast 4.5 mm thick angled axial sections acquired from the foramen magnum to the vertex, with coronal and sagittal reformats. For radiation dose reduction, the following was used: automated exposure control, adjustment of mA and/or kV according to patient size. COMPARISON: None. FINDINGS: Image quality: Diagnostic. CSF spaces: Basal cisterns are patent. No extra-axial fluid collections. The ventricles are symmetric in size and shape. Brain: No intracranial bleeds or mass effect. There is cerebral volume loss, with resultant ventricular and sulcal prominence. There are periventricular and deep white matter chronic small vessel ischemic changes. There is intracranial internal carotid artery atherosclerosis. Skull and face: Calvarium and visualized facial bones appear intact, without suspicious lesions. There is a large cephalohematoma overlying the right posterior scalp. Sinuses: Visualized sinuses and mastoids are clear. IMPRESSION: Cephalhematoma without skull fracture or acute intracranial pathology. Dictated by: Arabella Caceres M.D. on 04/26/2025 at 14:32 Approved by: Arabella Caceres M.D. on 04/26/2025 at 14:35 CT - cervical spine: Radiologist's Impression: PROCEDURE: CT CERVICAL SPINE WO CON INDICATIONS: fall, hit head TECHNIQUE: Noncontrast 3 mm thick sections acquired from the skull base to the T4 level. Sagittal and coronal reformats were then constructed. For radiation dose reduction, the following was used: automated exposure control, adjustment of mA and/or kV according to patient size. COMPARISON: None. FINDINGS: Image quality: Excellent. Bones: No fractures or dislocations. Visualized superior ribs are intact. There are degenerative changes throughout the cervical spine. Soft tissues: Prevertebral soft tissues are normal in thickness. No paravertebral hematomas. No apical pneumothoraces. IMPRESSION: No displaced fracture or traumatic subluxation. Dictated by: Arabella Caceres M.D. on 04/26/2025 at 14:35 Approved by: Arabella Caceres M.D. on 04/26/2025 at 14:39 XR Right Shoulder: Radiologist's Impression: PROCEDURE: XR SHOULDER RT MIN 2V INDICATIONS: fall/pain TECHNIQUE: 3 views of the shoulder were acquired. COMPARISON: None. FINDINGS: Bones: No fractures or dislocations. No suspicious bony lesions. There is elevation of the humeral head relative to the glenoid fossa without dislocation. Degenerative changes of the glenohumeral and acromioclavicular joints are present. Visualized ribs appear intact. Soft tissues: No suspicious soft tissue calcifications. IMPRESSION: No acute bony abnormality. Osteoarthritis with likely remote rotator cuff tear. Dictated by: Arabella Caceres M.D. on 04/26/2025 at 14:39 Approved by: Arabella Caceres M.D. on 04/26/2025 at 14:41 MDM Narrative Medical decision making narrative: 79-year-old male with a past medical history of prostate cancer, BPPV, REJI, HTN, HLD, AAA who presents to the emergency department via EMS from home for a fall. Fall was mechanical in nature, no syncope or LOC. We will update Tdap today. Differential diagnosis includes but is not limited to scalp laceration, ICH, skull fracture, hematoma, concussion, shoulder fracture, etc. Pt evaluated at bedside by attending MD. On exam patient is in no acute distress, nontoxic appearing, does have significant amount of posterior scalp bleeding present. Patient taken for head and neck CT, we will perform full physical exam when he returns. Patient is in no acute distress, nontoxic appearing, vital signs appropriate with slight bradycardia, patient does take beta-romulo. He is reporting pain only of his posterior scalp and right shoulder, he otherwise feels well is able to move all extremities, no focal neurologic deficits. Entire skin was visualized revealing no wounds or ecchymoses besides posterior scalp laceration. No tenderness to palpation of the trunk, spine or extremities with the exception of right posterior shoulder. With the assistance of nursing staff patient is scalp was extensively cleansed revealing 1 singular posterior scalp laceration that was anesthetized, irrigated, cleansed with a Betadine and repaired using 8 kaila with cessation of bleeding. CT head reveals cephalohematoma without skull fracture or acute intracranial pathology. CT cervical spine reveals no displaced fracture or traumatic subluxation. X-ray right shoulder reveals no acute bony abnormality of the however there is osteoarthritis with likely remote rotator cuff tear. Discussed all imaging results with the patient. Patient had no return of bleeding during ED stay, bacitracin and a nonadherent dressing was applied to the patient's scalp and then wrapped with Kerlix. Keflex was given to the patient for prevention of wound infection. Patient ambulated independently in the emergency department. All imaging results were discussed with the patient and his at bedside, he feels well and is eager for discharge home. Discussed strict return precautions, proper wound care, signs and symptoms to return to the ED and prompt follow up with PCP. Patient verbalized understanding of all information agreeable with the plan. He is ambulatory stable for discharge home. Discharge Plan Departure Patient Disposition: Home Clinical Impression: Fall (on) (from) other stairs and steps, initial encounter Hematoma of scalp Qualifiers: Encounter type: initial encounter Qualified Code(s): S00.03XA - Contusion of scalp, initial encounter Laceration of scalp Qualifiers: Encounter type: initial encounter Qualified Code(s): S01.01XA - Laceration without foreign body of scalp, initial encounter Instructions: DI for Laceration Repair of the Scalp Activity Restrictions/Additional Instructions: Dear Mr. Ba, Thank you for coming to the emergency department. Today you were evaluated for a fall causing a laceration on the back of your scalp. CT imaging of your head, neck, shoulder showed no broken bones or brain bleeds but you do have a hematoma which is a collection of blood beneath the scalp. Eight kaila were used to close your laceration. They need to be removed in 7-10 days. You may do this in your doctor's office, the [id number], or here if necessary. Please keep the dressing on your wound clean, dry, and intact for the next 24 hours. After this time, you may remove the dressing and gently clean the wound with soap and water, then pat dry. You may shampoo/wash her hair as usual but be sure to rinse out all hair products at the end of your shower. Apply ointment such as bacitracin or Aquaphor or Vaseline directly to the wound after 24 hours. Keep the wound clean and covered. Avoid soaking the wound in any water such as a bath, pool, or the ocean. If you develop any signs of wound infection such as increased redness, pus drainage, streaking redness, or fevers, please return to the ER immediately for evaluation. Once sutures are removed and the wound has healed, apply sunscreen daily to reduce the appearance of scars. We updated your tetanus shot today. If your wound starts to bleed again, apply firm direct pressure for at least 15 minutes. If it continues to soak through the dressing, return to the ER for further treatment. Please also return to ER if you develop any new or worsening symptoms, severe head pain, vomiting, visual disturbance or other concerns. You have been prescribed a short course of antibiotics to help prevent wound infection. Please complete the full course. Please follow up with your primary care doctor within the next 2-3 days for ER follow-up. (If you do not have a PCP you can call [phone]. ?to schedule an appointment with an [facility] Primary Care Provider) IF YOU DEVELOP ANY NEW OR WORSENING SYMPTOMS, RETURN TO THE ER! Please read the attached instructions, they highlight more specific treatments and interventions for you at home. Thank you for letting me participate in your care, Danelle Davidson PA-C Prescriptions: New cephalexin 500 mg capsule 500 mg PO TID 5 Days Qty: 15 0RF No Action meclizine 25 mg tablet 25 mg PO BID PRN (Reason: dizziness) Qty: 14 0RF ondansetron HCl 4 mg tablet 4 mg PO Q8H PRN (Reason: nausea and vomiting) Qty: 14 0RF meclizine 25 mg tablet 25 mg PO BID PRN (Reason: motion sickness) Qty: 20 0RF Terazosin HCl (HYTRIN) 2 mg PO HS Qty: 0 ASPIRIN (#ASPIRIN) 81 mg PO Q DAY Qty: 0 metoprolol tartrate 50 MG tablet 50 mg PO BID Qty: 0 VITAMIN D (Vitamin D3) 1,000 unit PO QDAY Qty: 0 naproxen sodium [Aleve] 220 mg Capsule 220 mg PO BID PRN (Reason: Pain (Scale Score 4-6)) rosuvastatin [Crestor] 20 mg tablet 20 mg PO DAILY tadalafil [Cialis] 5 mg tablet 5 mg PO DAILY PRN (Reason: not sure) Prilosec 10 mg susp,delayed release for recon 20 mg PO DAILY (DME) Resmed Aircurve BIPAP Qty: 1 Dose Instruction: As directed Patient Comments: Pressure: IPAP 20 EPAP 8 DME: [facility] Rx Instructions: As directed venlafaxine 150 mg capsule,extended release 24hr 150 mg PO DAILY nitroglycerin 0.4 mg tablet, sublingual 0.4 mg sublingual Q5M PRN Rx Instructions: do not exceed 3 doses per episode Referrals: Angelia Molina PA-C [Primary Care Provider, Medical] Stand Alone Forms: Patient Portal/API
[2025-04-26] MEDS: TET,DIPH,PERTUSS(ACELL),VAC/PF 0.5 ML SYRINGE IM (15:20)
[2025-04-26] MEDS: ACETAMINOPHEN 325 MG TABLET 650 MG PO (15:21)
[2025-04-26] MEDS: BACITRACIN OINT 0.9 GM PCKT 1 APPLIC TOP (16:07)
--- NOTE | 2025-04-26 17:02 | PC.NURSE ---
Patient ambulated with 2 wheeled walker and Sejal witnessed this activity and cleared patient for discharge. Patient has a 2 wheeled walker at home.
== END 2025-04-26 17:00 | disposition home or self-care (01) ==
PROVIDERS: Emergency Provider Physician Assistant; Family Provider Internal Medicine; PCP Physician Assistant
DX: S01.01XA Laceration without foreign body of scalp, initial encounter (principal); M25.511 Pain in right shoulder; W18.09XA Striking against other object with subsequent fall, initial encounter; Z23 Encounter for immunization
CPT/HCPCS: 12002; 70450; 72125; 73030; 90471; 99284; 90715

== ENCOUNTER → 2025-07-04 15:15 | Outpatient (CLI) | payer MEDICARE, OTHER, SELFPAY ==
[2025-07-04 19:04] LABS: Prostate Specific Antigen 0.275 ng/mL (0.10-4.00)
== END ==
PROVIDERS: PCP Physician Assistant; Referring Provider Urology; Visit Provider Urology
DX: C61 Malignant neoplasm of prostate (principal)
CPT/HCPCS: 36415; 84153

== ENCOUNTER → 2025-07-07 10:45 | Outpatient (CLI) | payer MEDICARE, OTHER, SELFPAY ==
--- NOTE | 2025-07-07 10:50 | DI.US.S_ITS ---
PROCEDURE: US RENAL COMPLETE INDICATIONS: FOLLOW UP RENAL CYSTS TECHNIQUE: Real-time scanning was performed of the kidneys and bladder, with image documentation. COMPARISON: [facility], CT, CT ABDOMEN PELVIS W CON, 02/17/2025, 11:32. [facility], US, US RENAL COMPLETE, 01/31/2025, 12:29. FINDINGS: Kidneys: Kidneys are normal in size. Right kidney measures 11.1 cm long; left kidney measures 11.1 cm long. Right renal cortical thickness is 1.4 cm; left renal cortical thickness is 1.8 cm. Renal cortical echotexture is normal. No hydronephrosis or nephrolithiasis. No suspicious solid mass lesions. Bilateral renal cystic lesions are again seen, without perceived complexity. Largest measures 12.7 x 11.7 x 1.4 centimeter on the right and 5.2 x 5.3 x 4.8 centimeter on the left. No nodularity or septations identified. Bladder: Patient voided prior to examination. Miscellaneous: No free pelvic fluid. Prostate is enlarged. IMPRESSION: Similar size and appearance of the anechoic renal cystic lesions without perceived complexity, likely Bosniak 1 equivalent Dictated by: Jamel Back M.D. on 07/07/2025 at 15:10 Approved by: Jamel Back M.D. on 07/07/2025 at 15:13
== END ==
PROVIDERS: PCP Physician Assistant; Referring Provider Physician Assistant; Visit Provider Urology
DX: N28.1 Cyst of kidney, acquired (principal)
CPT/HCPCS: 76770

== ENCOUNTER → 2025-07-25 08:54 | Outpatient (CLI) | payer MEDICARE, OTHER, SELFPAY ==
[2025-07-25 10:30] LABS: Alanine Aminotransferase 18 IU/L (<50); Albumin 4.0 g/dL (3.5-5.0); Albumin Globulin Ratio 1.6 (1.0-2.8); Alkaline Phosphatase 50 U/L (38-126); Blood Urea Nitrogen 14 mg/dL (9-20); Calcium 8.9 mg/dL (8.4-10.2); Carbon Dioxide 27 mmol/L (22-32); Chloride 99 mmol/L (98-107); Estimated Glomerular Filt Rate > 60 mL/min (>60); Globulin 2.5 g/dL (1.7-4.1); Glucose 106 mg/dL (70-99); HEMOLYSIS < 15 (0-50); Potassium 4.0 mmol/L (3.4-5.1); Sodium 134 mmol/L (137-145); Total Protein 6.5 g/dL (6.3-8.2)
== END ==
PROVIDERS: PCP Physician Assistant; Referring Provider Physician Assistant; Visit Provider Specialist
DX: E78.2 Mixed hyperlipidemia (principal)
CPT/HCPCS: 36415; 80053

== ENCOUNTER → 2025-08-04 14:24 | Outpatient (CLI) | payer MEDICARE, OTHER, SELFPAY ==
[2025-08-04 16:03] LABS: Hematocrit 35.9 % (41-53); Hemoglobin 12.5 g/dL (13.5-17.5); Mean Corpuscular HGB Conc 34.9 % (30-36); Mean Corpuscular Hemoglobin 31.8 PG (26-34); Mean Corpuscular Volume 91.2 fL (80-100); Platelet Count 173 X10^3/uL (150-400)
[2025-08-04 16:31] LABS: Magnesium 1.6 mg/dL (1.6-2.3)
== END ==
PROVIDERS: PCP Physician Assistant; Referring Provider Physician Assistant; Visit Provider Specialist
DX: E78.2 Mixed hyperlipidemia (principal); I10 Essential (primary) hypertension; I25.10 Atherosclerotic heart disease of native coronary artery without angina pectoris
CPT/HCPCS: 36415; 83735; 85027

== ENCOUNTER → 2025-09-09 15:39 | Outpatient (CLI) | payer MEDICARE, OTHER, SELFPAY ==
[2025-09-09 16:51] LABS: Influenza A - CEPHEID Flu A NEGATIVE (NEGATIVE); Influenza B - CEPHEID Flu B NEGATIVE (NEGATIVE)
[2025-09-09 17:02] LABS: COVID-19 CEPHEID 4-PLEX PCR Negative (Negative)
== END ==
PROVIDERS: PCP Physician Assistant; Visit Provider Chiropractor
DX: R05.1 Acute cough (principal)
CPT/HCPCS: 87637